=== PATIENT | male | born 1975 | race Caucasian/White ===

== ENCOUNTER → 2019-04-07 | Outpatient (CLI) | payer OTHER, SELFPAY ==
[2018-11-12 15:18] VITALS: BMI 37.5
[2019-04-07 21:53] LABS: Absolute Lymphocyte Count 2.58 X10^3/uL (0.83-4.51); Absolute Neutrophil Count 4.8 X10^3/uL (2.0-7.7); Basophil# 0.05 X10^3/uL; Basophil% 0.6 % (0-1); Eosinophil# 0.27 X10^3/uL; Eosinophils% 3.3 % (0-5); Hematocrit 46.6 % (40-54); Hemoglobin 15.5 g/dL (13.0-16.5); Lymphocyte # 2.58 X10^3/ul (4.0); Lymphocyte % 31.6 % (19-41); Mean Corp Hgb Conc 33.3 g/dL (32-36); Mean Corpuscular Hgb 28.1 pg (27.0-32.0); Mean Corpuscular Volume 84.4 fL (80-94); Mean Platelet Vol. 9.1 fl (6.2-12.0); Monocyte# 0.49 X10^3/uL; NRBC Flagged by Analyzer 0 % (0-5); Neutrophil # 4.75 X10^3/uL (2.7-7.7); Neutrophil % 58.3 % (47-70); Platelet Count 258 K/mm3 (150-450); RBC Distribution Width CV 12.7 % (11.6-14.6); RBC Distribution Width SD 39.2 fl (35.1-43.9); Red Blood Count 5.52 M/mm3 (4.6-6.2); White Blood Count 8.2 K/mm3 (4.4-11.0)
[2019-04-07 22:10] LABS: AST(SGOT) 26 U/L (15-37); Alanine Aminotransfer ALT/SGPT 61 U/L (16-61); Albumin, Serum 4.2 g/dL (3.2-5.0); Alkaline Phosphatase 72 U/L (45-117); Amylase 68 U/L (25-115); Anion Gap 7 (5-15); BUN 20 mg/dL (7-18); BUN/Creat Ratio 20.5 RATIO (10-20); Calcium,Total 9.4 mg/dL (8.5-10.1); Chloride 106 mmol/L (98-107); Cholesterol 273 mg/dL (200); Creatinine, Serum 0.97 mg/dL (0.70-1.30); EST Glomerular Filtration Rate 90 mL/min (>60); Est Glom Filt Rate - Afr Amer 109 mL/min (>60); Globulin 4.2 g/dL (2.2-4.2); Glucose 86 mg/dL (74-106); High Density Lipoprotein 61 mg/dL; Lipase 293 U/L (73-393); Protein, Total 8.4 g/dL (6.4-8.2); Sodium Level 139 mmol/L (136-145); Thyroid Stim Hormone (TSH) 1.57 uIU/mL (0.358-3.74); Triglycerides 194 mg/dL; Very Low Density Lipoprotein 39 mg/dL (5-40)
[2019-04-09 16:07] LABS: Endomysial Antibody IgA Negative (Negative)
[2019-04-13 12:36] LABS: Immunoglobulin A 270 mg/dL (90-386); t-Transglutaminase IgA <2 U/mL (0-3)
== END | disposition home or self-care (01) ==
LOC: OLS.AHF 21:40 → LABSPEC 04-08 09:42
PROVIDERS: Visit Provider Nurse Practitioner
DX: R10.30 Lower abdominal pain, unspecified (principal); R19.7 Diarrhea, unspecified; K59.00 Constipation, unspecified
CPT/HCPCS: 80053; 80061; 82150; 82784; 83516; 83690; 84443; 85025; 86255

== ENCOUNTER → 2019-05-02 20:01 | Outpatient (CLI) | payer OTHER, SELFPAY ==
[2019-04-30 13:45] VITALS: BMI 38.9
== END ==
LOC: OLS.AHF 20:01 → LABSPEC 05-04 12:49
PROVIDERS: Visit Provider Nurse Practitioner
DX: R30.0 Dysuria (principal)
CPT/HCPCS: 87086

== ENCOUNTER 2019-08-03 06:46 | Day surgery (SDC) | payer OTHER, SELFPAY ==
[2019-04-30 13:45] VITALS: BMI 38.9
[2019-07-28 17:06] LABS: Hematocrit 46.5 % (40-54); Hemoglobin 15.4 g/dL (13.0-16.5); Mean Corp Hgb Conc 33.1 g/dL (32-36); Mean Corpuscular Hgb 27.5 pg (27.0-32.0); Mean Corpuscular Volume 82.9 fL (80-94); Platelet Count 237 K/mm3 (150-450); RBC Distribution Width CV 13.1 % (11.6-14.6); Red Blood Count 5.61 M/mm3 (4.6-6.2); White Blood Count 7.3 K/mm3 (4.4-11.0)
[2019-07-28 17:41] LABS: Anion Gap 8 (5-15); BUN 16 mg/dL (7-18); BUN/Creat Ratio 14.8 RATIO (10-20); Calcium,Total 10.5 mg/dL (8.5-10.1); Chloride 106 mmol/L (98-107); Creatinine, Serum 1.08 mg/dL (0.70-1.30); EST Glomerular Filtration Rate 80 mL/min (>60); Est Glom Filt Rate - Afr Amer 96 mL/min (>60); Glucose 88 mg/dL (74-106); Potassium 3.9 mmol/L (3.5-5.1); Sodium Level 140 mmol/L (136-145)
[2019-08-03] VITALS (7 sets, daily range): BP systolic 154–177; BP diastolic 88–100; PULSE 56–81; RESP 14–16; TEMP 36.6–37.1; O2SAT 94–97; BMI 38.5
[2019-08-03] MEDS: Lactated Ringers 1,000 ML 100 ML IV (07:28)
--- NOTE | 2019-08-03 08:08 | DCINST_ITS ---
You will use the following diet at home:: No restrictions Your food should be the consistency of: Regular Discharge Activity: Return to Normal Activity, - - No nose blowing Additional Activity Instructions:: Start saline 3 sprays each nostril three times per day on 08/04/19 Allergies/Adverse Reactions: Allergies No Known Allergies Allergy (Verified 07/27/19 13:16) Medications to take at Discharge albuterol sulfate 90 mcg/actuation aerosol inhaler 2 puff INHALATION Q4H PRN #8 g 11/12/18 Acetaminophen [Tylenol Extra Strength] 500 - 1,000 mg PO Q6H PRN PRN 07/27/19 Buspirone HCl 10 mg PO TID 07/27/19 Cetirizine HCl [Zyrtec] 10 mg PO DAILY 07/27/19 Omeprazole 20 mg PO DAILY 07/27/19 Primary Care Physician: Linette Dale NP-C [Primary Care Provider] - Test Results: Test results from this visit will be discussed in further detail at your follow- up appointment, if applicable.
--- NOTE | 2019-08-03 08:10 | SEP_PTH ---
PATIENT: JHON VICTOR [place] [facility] [place][id number] AGE/SX: 43/M ROOM: RE08/03/[address]: Dr. Jb German MD : [id number] BED: DIS: 08/03/2019 SPEC #: [id number] RECD: 08/03/19 09:55 STATUS: ALEXANDER DAYANA #: [id number] SG: 08/03/19 08:[address]: Jb German DEPT: SURGICAL PATHOLOGY RECD BY: Nixon Nicole ENTERED: 08/03/19 13:17 SP TYPE: SEPTUM OTHR DR: Linette Dale, YARN CARRIER-C Tissues: Nasal septum, NOS Procedures: Decalcification bone/plaque Surgery Specimen Level III HEADER OPERATION: Septoplasty, submucous resection inferior turbinates PRE-OP DIAGNOSIS: Nasal congestion; hypertrophy of nasal turbinates; deviated nasal septum TISSUE SUBMITTED: Septum MICROSCOPIC DIAGNOSIS Nasal septum: Fragments of bone and cartilage, clinically deviated nasal septum. AM:maya 08/07/19 MICROSCOPIC DESCRIPTION Slides are reviewed. GROSS DESCRIPTION Received in fixative is one container labeled with the patient's name and designated nasal septum. The specimen consists of multiple irregular fragments of light louis bone and cartilage that in aggregate measure 6 x 3 x 0.2 cm. The specimen is totally submitted in two cassettes after decalcification. / AM:maya 08/03/19 TC:5 CPT: 69858, 73056
[2019-08-03] MEDS: Oxymetazoline 0.05% 1 SPRAY SPRAY.BTL 15 SPRAY (08:23)
[2019-08-03] MEDS: Mupirocin Ointment 22gm Tube 1 APPLIC (08:43)
--- NOTE | 2019-08-03 09:20 | OP.PCM_ITS ---
Report of Operation Date of Procedure: 08/03/19 Pre-Operative Diagnosis: nasal airway obstruction. deviated septum. Inferior turbinate hypertrophy bilaterally Post-Operative Diagnosis: same Surgery/Procedure Performed:: Septoplasty. Submucous resection inferior turbina christine. Type of Anesthesia:: General Anesthesiologist: Carlos Dillon Specimen's removed: septum Estimated Blood Loss (mL): minimal Description of Procedure: The patient was taken to the operating room on 08/03/2019. He was placed in supine position on the operating table. He was given sufficient general endotracheal anesthesia. The table was elevated 30 degrees. The nose was draped sterilely. 1% lidocaine with epinephrine was injected into the septum nasal floor anterior aspect of the inferior turbinates bilaterally. Nasal hair was trimmed with the scissors and removed. A right hemitransfixion incision was made with a 15 blade. The mucoperichondrial was elevated off of the left-hand side of the septum with a Parnell elevator. An anterior and posterior tunnel were created in this fashion. The bony cartilaginous junction was with a Parnell elevator. A posterior tunnel was created on the right side developed by elevating the mucoperichondrium with a Parnell. The deviated portions of bony septum were removed using open Osmin-Reza forceps. Next I established a plane on the right-hand side of the quadrangular cartilage as it was completely deviated into the right nasal cavity. I left a superior and anterior cartilage strip of 1.5 cm however the rest the quadrangular cartilage was excised with a D knife. This was removed and scored and eventually reinserted back into the septum. The maxillary crest was removed with a hammer and chisel. The remaining quadrangular cartilage was scored with a 15 blade. There were adhesions between the septum and right inferior turbinate that were lysed with a 15 blade. Afrin was used for hemostasis as well as Rani powder. Next, an incision was placed anterior aspect of the right inferior turbinate at the mucocutaneous junction. A submucous plane established with a caudal elevator. Submucous resection was carried out using a microdebrider. Afrin pledgets were used for hemostasis. The incision was then closed with 4-0 chromic. Then, an incision was placed at the anterior aspect of the left inferior turbinate at the mucocutaneous junction. A submucous plane established using a caudal elevator. Submucous resection was carried out using a microdebrider. The incision was then closed with 4-0 chromic. Afrin and Rani were used for hemostasis. Next the quadrangular cartilage was reinserted. The hemitransfixion incision was closed with 4-0 chromic. Michele nasal splints were applied to each side of the septum and sewn through and through with 3-0 silk. The patient was then awoken and brought to the recovery room in stable condition. Blood loss minimal, replacement none. Sponge, needle count, sponge count, were correct at the end of this procedure.
[2019-08-03] MEDS: HYDROcodone Bitartrate/Apap 5/325 Tablet PO (10:47)
== END 2019-08-03 11:21 | disposition home or self-care (01) ==
LOC: SDC 06:48 → AC 06:50
PROVIDERS: Family Provider Nurse Practitioner; PCP Nurse Practitioner; Referring Provider Otolaryngology; Visit Provider Otolaryngology
PROC: (CPT 30520; principal; 2019-08-03 07:55)
DX: J34.3 Hypertrophy of nasal turbinates (principal); J34.2 Deviated nasal septum; R09.81 Nasal congestion; I10 Essential (primary) hypertension; K21.9 Gastro-esophageal reflux disease without esophagitis; F41.9 Anxiety disorder, unspecified; J45.909 Unspecified asthma, uncomplicated; Z79.51 Long term (current) use of inhaled steroids; Z87.891 Personal history of nicotine dependence; Z79.899 Other long term (current) drug therapy
CPT/HCPCS: 30140; 30520; 36415; 80048; 85027; 88304; 88311; J7120; J2405

== ENCOUNTER → 2020-05-12 | Outpatient (CLI) | payer OTHER, SELFPAY ==
[2019-11-10 18:52] VITALS: BMI 38.9
== END | disposition home or self-care (01) ==
LOC: MTDU 17:24
PROVIDERS: PCP Nurse Practitioner; Referring Provider Nurse Practitioner; Visit Provider Nurse Practitioner
CPT/HCPCS: 87635; C9803; U0003

== ENCOUNTER → 2020-07-26 | Outpatient (CLI) | payer OTHER, SELFPAY ==
[2020-07-26 17:14] VITALS: BMI 39.9
[2020-07-26 22:38] LABS: Absolute Lymphocyte Count 2.42 X10^3/uL (0.83-4.51); Absolute Neutrophil Count 4.6 X10^3/uL (2.0-7.7); Basophil# 0.06 X10^3/uL; Basophil% 0.8 % (0-1); Eosinophil# 0.25 X10^3/uL; Eosinophils% 3.2 % (0-5); Hematocrit 47.3 % (40-54); Hemoglobin 15.3 g/dL (13.0-16.5); Lymphocyte # 2.42 X10^3/ul (4.0); Lymphocyte % 30.8 % (19-41); Mean Corp Hgb Conc 32.3 g/dL (32-36); Mean Corpuscular Hgb 28.2 pg (27.0-32.0); Mean Corpuscular Volume 87.1 fL (80-94); Mean Platelet Vol. 9.3 fl (6.2-12.0); Monocyte% 6.4 % (0-10); NRBC Flagged by Analyzer 0 % (0-5); Neutrophil # 4.61 X10^3/uL (2.7-7.7); Neutrophil % 58.5 % (47-70); Platelet Count 255 K/mm3 (150-450); RBC Distribution Width CV 12.9 % (11.6-14.6); Red Blood Count 5.43 M/mm3 (4.6-6.2); White Blood Count 7.9 K/mm3 (4.4-11.0)
[2020-07-26 23:09] LABS: ALB/GLOB Ratio 1.1 RATIO (0.9-2.4); AST(SGOT) 88 U/L (15-37); Alanine Aminotransfer ALT/SGPT 160 U/L (16-61); Albumin, Serum 4.1 g/dL (3.2-5.0); Alkaline Phosphatase 73 U/L (45-117); Anion Gap 6 (5-15); BUN 22 mg/dL (7-18); BUN/Creat Ratio 16.7 RATIO (10-20); Calcium,Total 9.1 mg/dL (8.5-10.1); Chloride 107 mmol/L (98-107); Cholesterol 306 mg/dL (200); Creatinine, Serum 1.32 mg/dL (0.70-1.30); EST Glomerular Filtration Rate 63 mL/min (>60); Est Glom Filt Rate - Afr Amer 76 mL/min (>60); Globulin 3.6 g/dL (2.2-4.2); Glucose 87 mg/dL (74-106); High Density Lipoprotein 58 mg/dL; Protein, Total 7.7 g/dL (6.4-8.2); Sodium Level 141 mmol/L (136-145); Triglycerides 256 mg/dL; Very Low Density Lipoprotein 51 mg/dL (5-40)
== END | disposition home or self-care (01) ==
PROVIDERS: PCP Nurse Practitioner; Referring Provider Nurse Practitioner; Visit Provider Nurse Practitioner
DX: I10 Essential (primary) hypertension (principal)
CPT/HCPCS: 80053; 80061; 85025

== ENCOUNTER → 2020-10-25 | Outpatient (CLI) | payer OTHER, SELFPAY ==
[2020-10-25 18:20] VITALS: BMI 38.7
[2020-10-25 22:18] LABS: Absolute Lymphocyte Count 1.84 X10^3/uL (0.83-4.51); Absolute Neutrophil Count 4.7 X10^3/uL (2.0-7.7); Basophil# 0.03 X10^3/uL; Basophil% 0.4 % (0-1); Eosinophil# 0.15 X10^3/uL; Eosinophils% 2.1 % (0-5); Hematocrit 43.8 % (40-54); Hemoglobin 14.5 g/dL (13.0-16.5); Lymphocyte # 1.84 X10^3/ul (4.0); Mean Corp Hgb Conc 33.1 g/dL (32-36); Mean Corpuscular Volume 87.6 fL (80-94); Mean Platelet Vol. 9.6 fl (6.2-12.0); Monocyte# 0.39 X10^3/uL; Monocyte% 5.5 % (0-10); NRBC Flagged by Analyzer 0 % (0-5); Neutrophil # 4.67 X10^3/uL (2.7-7.7); Neutrophil % 65.9 % (47-70); Platelet Count 269 K/mm3 (150-450); RBC Distribution Width CV 12.6 % (11.6-14.6); RBC Distribution Width SD 40.3 fl (35.1-43.9); White Blood Count 7.1 K/mm3 (4.4-11.0)
[2020-10-25 22:48] LABS: ALB/GLOB Ratio 1.1 RATIO (0.9-2.4); AST(SGOT) 154 U/L (15-37); Alanine Aminotransfer ALT/SGPT 253 U/L (16-61); Alkaline Phosphatase 69 U/L (45-117); Anion Gap 9 (5-15); BUN 22 mg/dL (7-18); BUN/Creat Ratio 20.4 RATIO (10-20); CPK Total, Creatine Kinase 2130 U/L (39-308); CRP, High Sensitivity Cardiac 1.53 mg/L; Calcium,Total 9.3 mg/dL (8.5-10.1); Chloride 107 mmol/L (98-107); Cholesterol 258 mg/dL (200); Creatinine, Serum 1.08 mg/dL (0.70-1.30); EST Glomerular Filtration Rate 79 mL/min (>60); Est Glom Filt Rate - Afr Amer 96 mL/min (>60); Globulin 3.5 g/dL (2.2-4.2); Glucose 110 mg/dL (74-106); High Density Lipoprotein 59 mg/dL; Potassium 3.6 mmol/L (3.5-5.1); Protein, Total 7.5 g/dL (6.4-8.2); Sodium Level 139 mmol/L (136-145); Triglycerides 288 mg/dL; Very Low Density Lipoprotein 58 mg/dL (5-40)
== END | disposition home or self-care (01) ==
PROVIDERS: Visit Provider Nurse Practitioner
DX: I10 Essential (primary) hypertension (principal); R00.2 Palpitations
CPT/HCPCS: 80053; 80061; 82550; 84484; 85025; 86141

== ENCOUNTER → 2021-03-03 12:40 | Outpatient (CLI) | payer OTHER, SELFPAY ==
[2020-12-16 18:30] VITALS: BMI 38.4
== END ==
PROVIDERS: PCP Nurse Practitioner; Visit Provider Nurse Practitioner
DX: Z20.822 Contact with and (suspected) exposure to COVID-19 (principal)
CPT/HCPCS: 87426; C9803

== ENCOUNTER 2021-08-09 09:18 | Outpatient (CLI) | payer OTHER, SELFPAY | END 2021-08-09 23:59 | disposition short-term general hospital (02) | LOC: PSN 09:19 | PROVIDERS: PCP Nurse Practitioner; Referring Provider Nurse Practitioner; Visit Provider Nurse Practitioner | DX: U07.1 COVID-19 (principal) | CPT/HCPCS: 87635; C9803; U0003; U0005 ==

== ENCOUNTER 2021-08-28 22:14 | Outpatient (CLI) | payer OTHER, SELFPAY ==
[2021-08-28 22:28] LABS: Absolute Lymphocyte Count 1.95 X10^3/uL (0.83-4.51); Basophil# 0.05 X10^3/uL; Basophil% 0.7 % (0-1); Eosinophil# 0.17 X10^3/uL; Eosinophils% 2.2 % (0-5); Hematocrit 47.9 % (40-54); Hemoglobin 16.1 g/dL (13.0-16.5); Lymphocyte # 1.95 X10^3/ul (0.83-4.51); Lymphocyte % 25.8 % (19-41); Mean Corp Hgb Conc 33.6 g/dL (32-36); Mean Corpuscular Hgb 28.5 pg (27.0-32.0); Mean Corpuscular Volume 84.9 fL (80-94); Mean Platelet Vol. 9.3 fl (6.2-12.0); Monocyte# 0.43 X10^3/uL; Monocyte% 5.7 % (0-10); NRBC Flagged by Analyzer 0 % (0-5); Neutrophil # 4.95 X10^3/uL (2.7-7.7); Neutrophil % 65.3 % (47-70); Platelet Count 264 K/mm3 (150-450); RBC Distribution Width CV 12.9 % (11.6-14.6); RBC Distribution Width SD 39.6 fl (35.1-43.9); Red Blood Count 5.64 M/mm3 (4.6-6.2); White Blood Count 7.6 K/mm3 (4.4-11.0)
[2021-08-28 22:49] LABS: ALB/GLOB Ratio 1.1 RATIO (0.9-2.4); AST(SGOT) 235 U/L (15-37); Alanine Aminotransfer ALT/SGPT 383 U/L (16-61); Albumin, Serum 4.4 g/dL (3.2-5.0); Alkaline Phosphatase 88 U/L (45-117); Anion Gap 7 (5-15); BUN 23 mg/dL (7-18); CPK Total, Creatine Kinase 204 U/L (39-308); Chloride 103 mmol/L (98-107); Creatinine, Serum 1.35 mg/dL (0.70-1.30); EST Glomerular Filtration Rate 61 mL/min (>60); Est Glom Filt Rate - Afr Amer 74 mL/min (>60); Globulin 4.1 g/dL (2.2-4.2); Glucose 96 mg/dL (74-106); Protein, Total 8.5 g/dL (6.4-8.2); Sodium Level 136 mmol/L (136-145)
== END 2021-08-28 23:59 | disposition short-term general hospital (02) ==
PROVIDERS: PCP Nurse Practitioner; Visit Provider Nurse Practitioner
DX: R07.89 Other chest pain (principal); K21.00 Gastro-esophageal reflux disease with esophagitis, without bleeding
CPT/HCPCS: 80053; 82550; 85025

== ENCOUNTER → 2021-12-21 | Outpatient (CLI) | payer OTHER, SELFPAY ==
[2021-12-22 00:01] LABS: Absolute Lymphocyte Count 2.45 X10^3/uL (0.83-4.51); Absolute Neutrophil Count 4.8 X10^3/uL (2.0-7.7); Basophil# 0.04 X10^3/uL; Basophil% 0.5 % (0-1); Eosinophil# 0.17 X10^3/uL; Eosinophils% 2.2 % (0-5); Hemoglobin 15.1 g/dL (13.0-16.5); Lymphocyte # 2.45 X10^3/ul (0.83-4.51); Mean Corp Hgb Conc 33.6 g/dL (32-36); Mean Corpuscular Hgb 28.5 pg (27.0-32.0); Mean Corpuscular Volume 84.9 fL (80-94); Mean Platelet Vol. 9.4 fl (6.2-12.0); Monocyte# 0.46 X10^3/uL; Monocyte% 5.8 % (0-10); NRBC Flagged by Analyzer 0 % (0-5); Neutrophil # 4.76 X10^3/uL (2.7-7.7); Neutrophil % 60.2 % (47-70); Platelet Count 247 K/mm3 (150-450); RBC Distribution Width CV 12.2 % (11.6-14.6); RBC Distribution Width SD 37.8 fl (35.1-43.9); White Blood Count 7.9 K/mm3 (4.4-11.0)
[2021-12-22 00:26] LABS: ALB/GLOB Ratio 1.2 RATIO (0.9-2.4); AST(SGOT) 52 U/L (15-37); Alanine Aminotransfer ALT/SGPT 125 U/L (16-61); Albumin, Serum 4.3 g/dL (3.2-5.0); Alkaline Phosphatase 69 U/L (45-117); Anion Gap 8 (5-15); BUN 25 mg/dL (7-18); BUN/Creat Ratio 23.6 RATIO (10-20); Calcium,Total 9.6 mg/dL (8.5-10.1); Chloride 105 mmol/L (98-107); Cholesterol 258 mg/dL (200); Creatinine, Serum 1.06 mg/dL (0.70-1.30); EST Glomerular Filtration Rate 81 mL/min (>60); Est Glom Filt Rate - Afr Amer 97 mL/min (>60); Globulin 3.6 g/dL (2.2-4.2); Glucose 91 mg/dL (74-106); High Density Lipoprotein 48 mg/dL; Potassium 4.1 mmol/L (3.5-5.1); Protein, Total 7.9 g/dL (6.4-8.2); Sodium Level 137 mmol/L (136-145); Triglycerides 200 mg/dL; Very Low Density Lipoprotein 40 mg/dL (5-40)
== END | disposition home or self-care (01) ==
PROVIDERS: PCP Nurse Practitioner; Referring Provider Nurse Practitioner; Visit Provider Nurse Practitioner
DX: I10 Essential (primary) hypertension (principal)
CPT/HCPCS: 80053; 80061; 85025

== ENCOUNTER → 2023-06-17 | Outpatient (CLI) | payer OTHER, SELFPAY ==
[2023-06-17 22:01] LABS: Absolute Lymphocyte Count 2.47 X10^3/uL (0.83-4.51); Basophil# 0.05 X10^3/uL; Basophil% 0.6 % (0-1); Eosinophil# 0.22 X10^3/uL; Eosinophils% 2.7 % (0-5); Hematocrit 47.2 % (40-54); Hemoglobin 15.7 g/dL (13.0-16.5); Lymphocyte # 2.47 X10^3/ul (0.83-4.51); Lymphocyte % 30.3 % (19-41); Mean Corp Hgb Conc 33.3 g/dL (32-36); Mean Corpuscular Hgb 28.6 pg (27.0-32.0); Monocyte# 0.44 X10^3/uL; Monocyte% 5.4 % (0-10); NRBC Flagged by Analyzer 0 % (0-5); Neutrophil # 4.95 X10^3/uL (2.7-7.7); Neutrophil % 60.9 % (47-70); Platelet Count 278 K/mm3 (150-450); RBC Distribution Width CV 12.8 % (11.6-14.6); RBC Distribution Width SD 40.2 fl (35.1-43.9); Red Blood Count 5.49 M/mm3 (4.6-6.2); White Blood Count 8.1 K/mm3 (4.4-11.0)
[2023-06-17 22:19] LABS: ALB/GLOB Ratio 1.1 RATIO (0.9-2.4); AST(SGOT) 30 U/L (15-37); Alanine Aminotransfer ALT/SGPT 55 U/L (16-61); Albumin, Serum 4.2 g/dL (3.2-5.0); Alkaline Phosphatase 69 U/L (45-117); Anion Gap 8 (5-15); BUN 19 mg/dL (7-18); BUN/Creat Ratio 16.5 RATIO (10-20); Calcium,Total 9.1 mg/dL (8.5-10.1); Chloride 105 mmol/L (98-107); Cholesterol 286 mg/dL (200); Creatinine, Serum 1.15 mg/dL (0.70-1.30); EST Glomerular Filtration Rate 73 mL/min (>60); Est Glom Filt Rate - Afr Amer 88 mL/min (>60); Globulin 3.8 g/dL (2.2-4.2); Glucose 101 mg/dL (74-106); High Density Lipoprotein 54 mg/dL; Potassium 3.9 mmol/L (3.5-5.1); Sodium Level 138 mmol/L (136-145); Thyroid Stim Hormone (TSH) 1.06 uIU/mL (0.358-3.74); Triglycerides 318 mg/dL; Very Low Density Lipoprotein 64 mg/dL (5-40)
== END | disposition home or self-care (01) ==
PROVIDERS: PCP Nurse Practitioner; Visit Provider Nurse Practitioner
DX: I10 Essential (primary) hypertension (principal); E78.5 Hyperlipidemia, unspecified; R74.8 Abnormal levels of other serum enzymes; E66.9 Obesity, unspecified
CPT/HCPCS: 80053; 80061; 84443; 85025

== ENCOUNTER → 2023-10-10 | Outpatient (CLI) | payer OTHER, SELFPAY ==
[2023-10-10 21:37] LABS: Cholesterol 212 mg/dL (200); High Density Lipoprotein 57 mg/dL; Triglycerides 145 mg/dL; Very Low Density Lipoprotein 29 mg/dL (5-40)
== END | disposition home or self-care (01) ==
LOC: LABSPEC 21:11
PROVIDERS: PCP Nurse Practitioner; Visit Provider Nurse Practitioner
DX: E78.1 Pure hyperglyceridemia (principal); E78.5 Hyperlipidemia, unspecified
CPT/HCPCS: 80061

== ENCOUNTER → 2025-06-09 | Outpatient (CLI) | payer OTHER, SELFPAY ==
[2025-06-09 17:53] LABS: Hematocrit 43.2 % (40-54); Hemoglobin 14.1 g/dL (13.0-16.5); Immature Granulocytes Count 0.040 X10^3/uL (0.0-0.0); Mean Corp Hgb Conc 32.6 g/dL (32-36); Mean Corpuscular Volume 89.1 fL (80-94); Mean Platelet Vol. 9.8 fl (6.2-12.0); NRBC Flagged by Analyzer 0 % (0-5); Platelet Count 465 K/mm3 (150-450); RBC Distribution Width CV 14.2 % (11.6-14.6); RBC Distribution Width SD 45.6 fl (35.1-43.9); Red Blood Count 4.85 M/mm3 (4.6-6.2); White Blood Count 10.8 K/mm3 (4.4-11.0)
[2025-06-09 18:06] LABS: AST(SGOT) 18 U/L (<=37); Alanine Aminotransfer ALT/SGPT 12 U/L (<=46); Albumin, Serum 3.7 g/dL (3.5-5.0); Alkaline Phosphatase 110 U/L (40-129); Anion Gap 9 (5-15); BUN 19 mg/dL (4-19); BUN/Creat Ratio 25.3 RATIO (10-20); Calcium,Total 9.4 mg/dL (7.6-11.0); Carbon Dioxide 25.4 mmol/L (21.0-32.0); Chloride 101 mmol/L (98-108); Ferritin 83 ng/mL (37-417); Globulin 2.8 g/dL (2.2-4.2); Glucose 86 mg/dL (70-99); Iron 25 ug/dL (65-175); Iron Binding Capacity,Unsat 205 ug/dL (228-428); Magnesium 2.0 mg/dL (1.5-2.2); Potassium 4.5 mmol/L (3.3-5.1); Vitamin B12 1246 pg/mL (180-914); Vitamin D,25 Hydroxy 41.6 ng/mL (30-100)
[2025-06-09 18:19] LABS: FOLATES,SERUM (FOLIC ACID) 3.91 ng/mL (4.60-34.80)
[2025-06-09 18:27] LABS: Iron Binding Capacity,Total 230 ug/dL (250-450)
== END | disposition home or self-care (01) ==
LOC: VSLAB 15:32
PROVIDERS: PCP Nurse Practitioner; Referring Provider Nurse Practitioner Family; Visit Provider Nurse Practitioner Family
DX: M62.838 Other muscle spasm (principal); D50.9 Iron deficiency anemia, unspecified; E56.9 Vitamin deficiency, unspecified; R73.03 Prediabetes
CPT/HCPCS: 36415; 80053; 82306; 82607; 82728; 82746; 83036; 83540; 83550; 83735; 85025

== ENCOUNTER → 2025-07-06 | Outpatient (CLI) | payer OTHER, SELFPAY ==
--- OUTSIDE RECORDS SUMMARY | 2025-07-06 21:50 | XMS RPT_ITS | CCD ---
Author Organization [facility] Care Team Providers Care Online User Experience Strategist Name Role Phone Gerardo, Shawna Unavailable Unavailable Gerardo, Shawna Unavailable Unavailable Gerardo, Shawna Unavailable Unavailable QUINTIN HARP Unavailable Unavailable Gerardo, Shawna Unavailable Unavailable Gerardo, Shawna Unavailable Unavailable Jono Weathers Primary Care Provider Jasiel WET WHEELER, Jono Attending Unavailable Jasiel WET WHEELER, Jono Primary Care Unavailable Jasiel WET WHEELER, Jono Attending Unavailable Jasiel WET WHEELER, Jono Primary Care Unavailable Jono Weathers Primary Care Provider Jono Weathers Primary Care Provider JAN PRASAD Attending Unavailable WEATHERS, DORA Primary Care Unavailable JASIEL JONO Primary Care Unavailable BAKARI JOHNSON Attending Unavailable Allergies Allergy Classification Reported Allergen(s) Allergy Type Date of Onset Reaction(s) Facility (13 sources) almond allergenic extract Drug Allergy 10-06-2022 [facility] (13 sources) avocado oil Drug Allergy 10-06-2022 [facility] (13 sources) Bananas Propensity to adverse reactions 10-06-2022 [facility] Medications Current Medications Medication Drug Class(es) Dates Sig (Normalized) Sig (Original) [id number] 200 actuat albuterol 0.09 mg/actuat metered dose inhaler (20 sources) beta2-Adrenergic Agonist Start: 09-04-2022 take 2 puff(s) by mouth every six hours as needed for wheezing albuterol 108 (90 Base) MCG/ACT inhaler INHALE 2 PUFFS BY MOUTH EVERY 6 HOURS NEEDED FOR SHORTNESS OF BREATH FOR WHEEZING 09/04/2022 Active Start: 03-09-2021 End: 06-17-2023 take 1 puff(s) by inhalation every six hours Albuterol Sulfate (Proair Hfa) 90 mcg/actuation HFA aerosol inhaler Discontinued 2 PUFF INHALATION EVERY 6 HOURS April 26, 2022 7:39pm June 17, 2023 8:31pm Start: 11-10-2019 End: 03-09-2021 take 1 puff(s) by inhalation every four hours Albuterol Sulfate (Ventolin Hfa) 90 mcg/actuation HFA aerosol inhaler Discontinued 2 PUFF INHALATION Q4H December 16, 2020 6:32pm March 09, 2021 9:18pm Start: 11-12-2018 End: 11-10-2019 take 1 puff(s) by inhalation every four hours Albuterol Sulfate (Ventolin Hfa) 90 mcg/actuation HFA aerosol inhaler Discontinued 2 PUFF INHALATION Q4H 8 November 12, 2018 3:46pm November 10, 2019 6:36pm Start: 05-21-2018 End: 11-12-2018 take 1 puff(s) by inhalation every six hours Albuterol Sulfate (Ventolin Hfa) 90 mcg/actuation HFA aerosol inhaler Discontinued 2 PUFF INHALATION EVERY 6 HOURS May 21, 2018 6:56pm November 12, 2018 3:47pm Start: 05-21-2018 End: 11-12-2018 take 1 puff(s) by inhalation every six hours Albuterol Sulfate (Ventolin Hfa) 90 mcg/actuation HFA aerosol inhaler Discontinued 2 PUFF INHALATION EVERY 6 HOURS May 21, 2018 12:00am November 12, 2018 3:47pm ALPRAZolam 0.5 mg oral tablet (4 sources) Benzodiazepine Start: 10-23-2022 End: 06-17-2023 take 0.5 mg by mouth once daily Alprazolam Active 0.5 MG PO DAILY June 17, 2023 8:30pm baclofen 10 mg oral tablet (16 sources) gamma-Aminobutyric Acid-ergic Agonist Start: 08-28-2021 End: 01-03-2023 baclofen (Lioresal) 10 MG tablet Take 10 mg by mouth See administration instructions. prn 08/28/2022 Active busPIRone hydrochloride 10 mg oral tablet (20 sources) Start: 07-27-2019 End: 01-24-2023 take 1 tablet by mouth three times daily busPIRone (Buspar) 10 MG tablet Take 10 mg by mouth 3 times daily. 07/21/2022 Active Start: 05-21-2018 End: 07-27-2019 take 15 mg by mouth twice daily Buspirone Discontinued 15 MG PO TWICE A DAY 270 90 November 12, 2018 3:46pm July 27, 2019 2:18pm ezetimibe 10 mg oral tablet (1 source) Dietary Cholesterol Absorption Inhibitor Start: 07-16-2023 take 10 mg by mouth once daily Ezetimibe Active 10 MG PO DAILY July 16, 2023 1:00am hydrOXYzine hydrochloride 10 mg oral tablet (20 sources) Antihistamine Start: 08-09-2022 take 1 tablet by mouth five times daily as needed for anxiety hydrOXYzine HCl (Atarax) 10 MG tablet TAKE 1 TABLET BY MOUTH FIVE TIMES DAILY NEEDED FOR ANXIETY 08/09/2022 Active Start: 12-16-2020 End: 01-04-2023 Hydroxyzine Hcl Discontinued 10 MG PO .5 x d 450 90 October 15, 2022 7:47pm January 04, 2023 7:11pm Start: 10-25-2020 End: 12-16-2020 take 10 mg by mouth three to four times daily Hydroxyzine Hcl Discontinued 10 MG PO 3 to 4 times per day 60 October 25, 2020 12:00am December 16, 2020 6:35pm ibuprofen 800 mg oral tablet (20 sources) Nonsteroidal Anti-inflammatory Drug Start: 08-28-2022 ibuprofen 800 MG tablet Take 800 mg by mouth See administration instructions. PRN 08/28/2022 Active Start: 12-08-2019 End: 01-24-2023 take 800 mg by mouth three times daily Ibuprofen Discontinued 800 MG PO THREE TIMES A DAY 60 February 01, 2021 7:58pm June 13, 2021 8:39pm lisinopril 20 mg oral tablet (20 sources) Angiotensin Converting Enzyme Inhibitor Start: 07-26-2020 End: 04-25-2023 take 1 tablet by mouth once daily lisinopril 20 MG tablet Take 20 mg by mouth daily. 06/15/2022 Active Start: 11-10-2019 End: 07-26-2020 take 10 mg by mouth once daily Lisinopril Discontinued 10 MG PO DAILY November 10, 2019 12:00am July 26, 2020 6:24pm pantoprazole 40 mg delayed release oral tablet (18 sources) Proton Pump Inhibitor Start: 08-08-2021 End: 01-24-2023 take 1 tablet by mouth once daily pantoprazole (ProtoNix) 40 MG EC tablet Take 40 mg by mouth daily. 08/28/2022 Active traZODone hydrochloride 50 mg oral tablet (1 source) Serotonin Reuptake Inhibitor Start: 10-10-2023 take 50 mg by mouth once daily Trazodone Active 50 MG PO DAILY October 10, 2023 12:00am Completed/Discontinued Medications Medication Drug Class(es) Dates Sig (Normalized) Sig (Original) acetaminophen 500 mg oral tablet (5 sources) Start: 04-23-2025 End: 04-23-2025 1,000 mg, Oral, Once, On Sat04/23/25 at 2120, For 1 dose, Maximum dose of acetaminophen is 4000 mg from all sources in 24 hours. Start: 07-27-2019 End: 07-26-2020 take 500-1000 mg by mouth every six hours as needed Acetaminophen Discontinued 500 - 1000 MG PO EVERY 6 HOURS NEEDED July 27, 2019 1:00am July 26, 2020 6:17pm amoxicillin 875 mg oral tablet (3 sources) Penicillin-class Antibacterial Start: 06-13-2021 End: 08-28-2021 take 875 mg by mouth twice daily Amoxicillin Discontinued 875 MG PO TWICE A DAY June 13, 2021 1:00am August 28, 2021 7:24pm amoxicillin 875 mg / clavulanate 125 mg oral tablet (5 sources) Penicillin-class Antibacterial Start: 04-12-2023 End: 06-17-2023 take 1 tablet by mouth twice daily Amoxicillin-Pot Clavulanate Discontinued 1 TABLET PO TWICE A DAY April 12, 2023 12:00am June 17, 2023 8:20pm Start: 09-21-2019 End: 11-10-2019 take 1 tablet by mouth twice daily Amoxicillin-Pot Clavulanate Discontinued 1 TABLET PO TWICE A DAY September 21, 2019 1:00am November 10, 2019 6:31pm atorvastatin 40 mg oral tablet (5 sources) HMG-CoA Reductase Inhibitor Start: 08-28-2022 End: 04-25-2023 take 100 mg by mouth once daily Atorvastatin Discontinued 20 MG PO DAILY August 28, 2022 5:09pm April 25, 2023 3:18pm take with CoQ10 100 mg a day Start: 07-27-2020 End: 08-28-2022 take 100 mg by mouth once daily Atorvastatin Discontinued 40 MG PO DAILY July 27, 2020 1:00am August 28, 2022 5:10pm take with CoQ10 100 mg a day calcium chloride 0.0014 meq/ml / potassium chloride 0.004 meq/ml / sodium chloride 0.103 meq/ml / sodium lactate 0.028 meq/ml injectable solution (2 sources) Start: 10-06-2022 End: 10-06-2022 lactated ringers bolus 500 mL cefuroxime 500 mg oral tablet (2 sources) Cephalosporin Antibacterial Start: 10-23-2022 End: 04-12-2023 take 500 mg by mouth twice daily Cefuroxime Axetil Discontinued 500 MG PO TWICE A DAY October 23, 2022 12:00am April 12, 2023 6:36pm cephalexin 500 mg oral capsule (3 sources) Cephalosporin Antibacterial Start: 09-01-2019 End: 09-21-2019 take 500 mg by mouth twice daily Cephalexin Discontinued 500 MG PO TWICE A DAY September 01, 2019 1:00am September 21, 2019 7:50pm cetirizine hydrochloride 10 mg oral capsule (3 sources) Histamine-1 Receptor Antagonist Start: 07-27-2019 End: 06-17-2023 take 10 mg by mouth once daily Cetirizine Discontinued 10 MG PO DAILY July 27, 2019 1:00am June 17, 2023 8:21pm clotrimazole 10 mg/ml topical cream (2 sources) Azole Antifungal Start: 08-28-2022 End: 06-17-2023 Clotrimazole Discontinued 1 APPLIC TOPICAL THREE TIMES A DAY August 28, 2022 1:00am June 17, 2023 8:20pm dexamethasone 6 mg oral tablet (3 sources) Corticosteroid Start: 08-08-2021 End: 08-28-2021 take 6 mg by mouth twice daily Dexamethasone Discontinued 6 MG PO TWICE A DAY August 08, 2021 1:00am August 28, 2021 7:24pm 5 ml dilTIAZem hydrochloride 5 mg/ml injection (4 sources) Calcium Channel Avinash Start: 10-06-2022 End: 10-06-2022 dilTIAZem (Cardizem) injection 40 mg Start: 10-06-2022 End: 10-06-2022 dilTIAZem (Cardizem) injecti on 30 mg DULoxetine 30 mg delayed release oral capsule (4 sources) Serotonin and Norepinephrine Reuptake Inhibitor Start: 10-23-2022 End: 04-25-2023 take 30 mg by mouth once daily Duloxetine Discontinued 30 MG PO DAILY October 23, 2022 4:04pm April 25, 2023 3:19pm EPINEPHrine 0.01 mg/ml / lidocaine hydrochloride 10 mg/ml injectable solution (2 sources) Antiarrhythmic, alpha-Adrenergic Agonist, beta-Adrenergic Agonist, Catecholamine, Amide Local Anesthetic Start: 04-23-2025 End: 04-23-2025 5 mL, Infiltration, Once, On Sat04/23/25 at 2120, For 1 dose 20 ml etomidate 2 mg/ml injection (2 sources) General Anesthetic Start: 10-06-2022 End: 10-06-2022 etomidate (Amidate) injection 20 mg fluconazole 100 mg oral tablet (2 sources) Azole Antifungal Start: 08-28-2022 End: 04-25-2023 take 100 mg by mouth once daily Fluconazole Discontinued 100 MG PO daily August 28, 2022 1:00am April 25, 2023 3:19pm 1 ml LORazepam 2 mg/ml injection (2 sources) Benzodiazepine Start: 10-06-2022 End: 10-06-2022 LORazepam (Ativan) injection 0.5 mg 2 ml metoclopramide 5 mg/ml prefilled syringe (2 sources) Dopamine-2 Receptor Antagonist Start: 10-06-2022 End: 10-06-2022 metoclopramide (Reglan) injection 10 mg omeprazole 20 mg delayed release oral tablet (3 sources) Proton Pump Inhibitor Start: 07-27-2019 End: 08-28-2021 take 20 mg by mouth once daily Omeprazole Discontinued 20 MG PO DAILY July 27, 2019 1:00am August 28, 2021 7:25pm On Hold: Order Changed 2 ml ondansetron 2 mg/ml injection (4 sources) Serotonin-3 Receptor Antagonist Start: 10-06-2022 End: 10-07-2022 ondansetron (Zofran) injection 4 mg 1 ml testosterone cypionate 200 mg/ml injection (3 sources) Androgen Start: 05-21-2018 End: 11-12-2018 Testosterone Cypionate (Depo-Testosterone) 200 mg/mL oil Discontinued 200 MG IM every 4 weeks May 21, 2018 12:00am November 12, 2018 3:34pm Problems Active Problems Problem Classification Problem Date Documented Da te Episodic/Chronic Anxiety disorders (20 sources) Anxiety disorder, unspecified; Translations: [Anxiety] Onset: 09-28-2016 05-11-2022 Chronic Asthma (12 sources) Asthma; Translations: [Unspecified asthma, uncomplicated] Onset: 10-08-2022 10-08-2022 Chronic Cardiac dysrhythmias (20 sources) Atrial fibrillation; Translations: [Unspecified atrial fibrillation] Onset: 10-08-2022 Resolved: 12-27-2022 Chronic Disorders of lipid metabolism (4 sources) Hyperlipidemia; Translations: [Hyperlipidemia, unspecified] Onset: 10-14-2023 06-18-2023 Chronic Esophageal disorders (14 sources) Gastro-esophageal reflux disease without esophagitis; Translations: [Gastroesophageal reflux disease] Onset: 03-20-2017 10-08-2022 Chronic Essential hypertension (20 sources) Hypertensive disorder; Translations: [Essential (primary) hypertension] Onset: 09-28-2016 05-11-2022 Chronic Inflammatory conditions of male genital organs (2 sources) Balanitis; Translations: [Balanitis] 08-28-2022 Chronic Open wounds of head; neck; and trunk (4 sources) Laceration of forehead; Translations: [Laceration without foreign body of other part of head, initial encounter] Onset: 04-23-2025 04-23-2025 Episodic Other ear and sense organ disorders (1 source) Otalgia; Translations: [Otalgia, unspecified ear] Episodic Other ear and sense organ disorders (2 sources) Pain of ear structure; Translations: [Otalgia, unspecified ear] 09-21-2019 Episodic Other gastrointestinal disorders (3 sources) Diarrhea; Translations: [Diarrhea, unspecified] 08-03-2019 Episodic Other injuries and conditions due to external causes (2 sources) Closed injury of head; Translations: [Unspecified injury of head, initial encounter] 04-23-2025 Episodic Other injuries and conditions due to external causes (2 sources) Unspecified injury of head, initial encounter; Translations: [Unspecified injury of head, initial encounter] Onset: 04-23-2025 Episodic Other nutritional; endocrine; and metabolic disorders (9 sources) Body mass index 40+ - severely obese; Translations: [Morbid (severe) obesity due to excess calories] Onset: 10-08-2022 10-08-2022 Chronic Other nutritional; endocrine; and metabolic disorders (2 sources) Obesity; Translations: [Obesity, unspecified] 04-26-2023 Chronic Other skin disorders (2 sources) Sebaceous cyst of skin; Translations: [Sebaceous cyst] 04-14-2023 Episodic Other skin disorders (2 sources) Sebaceous hyperplasia; Translations: [Other specified follicular disorders] 04-12-2023 Episodic Other upper respiratory disease (2 sources) Allergic rhinitis, unspecified; Translations: [Allergic rhinitis, unspecified] Onset: 03-20-2017 Chronic Other upper respiratory disease (15 sources) Allergic rhinitis; Translations: [Other allergic rhinitis] Onset: 04-07-2017 05-11-2022 Chronic Other upper respiratory infections (12 sources) Maxillary sinusitis; Translations: [Chronic maxillary sinusitis] Onset: 10-08-2022 10-08-2022 Chronic Other upper respiratory infections (3 sources) Pharyngitis; Translations: [Acute pharyngitis, unspecified] 06-13-2021 Episodic Past or Other Problems Problem Classification Problem Date Documented Da te Episodic/Chronic Abdominal pain (12 sources) Lower abdominal pain; Translations: [Lower abdominal pain, unspecified] Onset: 10-08-2022 10-08-2022 Episodic Cardiac dysrhythmias (15 sources) Palpitations; Translations: [Palpitations] Onset: 10-08-2022 10-08-2022 Episodic Epilepsy; convulsions (2 sources) Unspecified convulsions; Translations: [Unspecified convulsions] Onset: 03-20-2017 Episodic Genitourinary symptoms and ill-defined conditions (15 sources) Dysuria; Translations: [Dysuria] Onset: 10-08-2022 10-08-2022 Episodic Immunizations and screening for infectious disease (12 sources) Contact with or exposure to other viral diseases; Translations: [Exposure to confirmed case of COVID-19] Onset: 10-08-2022 10-08-2022 Episodic Nonspecific chest pain (15 sources) Chest wall pain; Translations: [Other chest pain] Onset: 10-08-2022 10-08-2022 Episodic Other circulatory disease (12 sources) Elevated blood-pressure reading without diagnosis of hypertension; Translations: [Elevated blood-pressure reading, without diagnosis of hypertension] Onset: 10-08-2022 Resolved: 12-27-2022 10-08-2022 Episodic Other connective tissue disease (2 sources) Pain in left foot; Translations: [Pain in left foot] Onset: 04-08-2017 Episodic Other connective tissue disease (12 sources) Muscle pain; Translations: [Myalgia, unspecified site] Onset: 10-08-2022 10-08-2022 Episodic Other gastrointestinal disorders (2 sources) Diarrhea, unspecified; Translations: [Diarrhea, unspecified] Onset: 03-20-2017 Episodic Other gastrointestinal disorders (12 sources) Constipation; Translations: [Constipation, unspecified] Onset: 10-08-2022 10-08-2022 Episodic Other liver diseases (12 sources) Liver enzymes abnormal; Translations: [Abnormal levels of other serum enzymes] Onset: 10-08-2022 10-08-2022 Episodic Other lower respiratory disease (12 sources) Dyspnea; Translations: [Shortness of breath] Onset: 10-08-2022 Resolved: 12-27-2022 10-08-2022 Episodic Other screening for suspected conditions (not mental disorders or infectious disease) (15 sources) Decreased testosterone level ; Translations: [Other specified abnormal findings of blood chemistry] Onset: 04-07-2017 05-11-2022 Episodic Otitis media and related conditions (15 sources) Otitis media; Translations: [Otitis media, unspecified, right ear] Onset: 10-08-2022 10-08-2022 Episodic Screening or history of mental health and substance abuse (2 sources) Personal history of nicotine dependence; Translations: [Personal history of nicotine dependence] Onset: 03-20-2017 Episodic Unclassified (2 sources) Family history of malignant neoplasm of trachea, bronchus and lung; Translations: [Family history of malig neoplasm of trachea, bronc and lung] Onset: 03-20-2017 Episodic Viral infection (12 sources) Disease caused by 2019-nCoV; Translations: [COVID-19] Onset: 10-08-2022 10-08-2022 Episodic Results Test Name Value Interpretation Reference Range Facility CT HEAD WO IV CONTRASTon CT HEAD WO IV CONTRAST Patient Name: JHON HERNANDEZ : 1975 Exam Date/Time: 04/23/2025 22:35 Procedure: CT HEAD WO IV CONTRAST Ordering Provider: JOHNSON ANIS Reason For Exam: HEADACHE; Trauma/Injury to Head CT BRAIN WITHOUT CONTRAST CLINICAL INDICATION: HEADACHE; Trauma/Injury to Head, head pain TECHNIQUE: Noncontrast CT scan of the brain. Multiplanar reformations. Dose reduction was employed with automated exposure control. COMPARISON: None FINDINGS: Brain volume is normal for age. No hemorrhage, mass effect, or midline shift. No hydrocephalus. No pathologic extra-axial fluid collection. Normal basal cisterns. No evidence of acute cortical infarct. IMPRESSION: 1. No acute intracranial finding. Report Dictated on Electronically Signed By: Avinash Kidd MD Electronically Signed Date/Time: 04/23/2025 11:05 PM EDT Patient arrived ambulatory to room 5 without difficulty. Patient states he tripped and fell hitting his head on corner of desk at home. Patient has approx 5 cm laceration across forehead. Bleeding controlled upon arrival. Patient denies LOC. Last tetanus unknown. Normal [facility] CT Head WO contraston 2024 1. No acute intracranial finding. Report Dictated on Electronically Signed By: Avinash Kidd MD Electronically Signed Date/Time: 04/23/2025 11:05 PM EDT [facility] Patient Name: JHON HERNANDEZ : 1975 Exam Date/Time: 04/23/2025 22:35 Procedure: CT HEAD WO IV CONTRAST Ordering Provider: JOHNSON ANIS Reason For Exam: HEADACHE; Trauma/Injury to Head CT BRAIN WITHOUT CONTRAST CLINICAL INDICATION: HEADACHE; Trauma/Injury to Head, head pain TECHNIQUE: Noncontrast CT scan of the brain. Multiplanar reformations. Dose reduction was employed with automated exposure control. COMPARISON: None FINDINGS: Brain volume is normal for age. No hemorrhage, mass effect, or midline shift. No hydrocephalus. No pathologic extra-axial fluid collection. Normal basal cisterns. No evidence of acute cortical infarct. [facility] Avinash Kidd MD - 04/23/2025 [facility] Name[facility] 1975 [id number] Exam Date/Time: 04/23/2025 22:35 Procedure: CT HEAD WO IV CONTRAST Ordering Provider: JOHNSON ANIS Reason For Exam: HEADACHE; Trauma/Injury to Head CT BRAIN WITHOUT CONTRAST CLINICAL INDICATION: HEADACHE; Trauma/Injury to Head, head pain TECHNIQUE: Noncontrast CT scan of the brain. Multiplanar reformations. Dose reduction was employed with automated exposure control. COMPARISON: None FINDINGS: Brain volume is normal for age. No hemorrhage, mass effect, or midline shift. No hydrocephalus. No pathologic extra-axial fluid collection. Normal basal cisterns. No evidence of acute cortical infarct. IMPRESSION: 1. No acute intracranial finding. Report Dictated on Electronically Signed By: Avinash Kidd MD Electronically Signed Date/Time: 04/23/2025 11:05 PM EDT [facility] Radiology Study observation (narrative) [facility] alth CT Head WO contrastOrdered B y: Avinash Kidd on 04-23-2025 [facility] Work Phone: ED Nursing Noteon 04-23-2025 ED Nursing Note Patient arrived ambulatory to room 5 without difficulty. Patient states he tripped and fell hitting his head on corner of desk at home. Patient has approx 5 cm laceration across forehead. Bleeding controlled upon arrival. Patient denies LOC. Last tetanus unknown. Normal [facility] ED Provider Noteon ED Provider Note Emergency Department Encounter Pt Name: Jhon Hernandez Birthdate 1975 Date of evaluation: 04/23/2025 Provider: Bakari Johnson MD CHIEF COMPLAINT Chief Complaint Patient presents with Head Laceration Fall HISTORY OF PRESENT ILLNESS HPI Jhon Hernandez is a 49 y.o. male with history that includes hypertension and GERD presenting to the emergency department for evaluation of a forehead laceration. Patient tripped and fell and struck his head on a round table and sustained a laceration to his left forehead. No LOC. No headache. Tetanus not up-to-date. No EtOH. Nursing Notes were reviewed. Medical History[1] REVIEW OF SYSTEMS Several elements of the ROS reviewed and otherwise acutely negative except as in the HPI. PHYSICAL EXAM ED Triage Vitals [04/23/252105] Temp Heart Rate Resp BP 36.6 ?C (97.9 ?F) 90 16 (!) 157/69 SpO2 Temp Source Heart Rate Source Patient Position 97 % Oral Monitor Sitting BP Location FiO2 (%) Right arm -- Physical Exam Patient is laying in bed no acute distress. There is a 3 cm laceration over the left forehead. It is 4 mm deep. It is hemostatic. There is no adjacent bony tenderness. PERRL, EOMI. There is no C-spine tenderness. Strength 5/5 with bilateral shoulder extension and bilateral hip flexion. Sensation to light touch intact in bilateral upper and lower extremities. [place] Coma Scale Best Eye Response: Spontaneous Best Verbal Response: Oriented Best Motor Response: Follows commands [place] Coma Scale Score: 15 EMERGENCY DEPARTMENT COURSE and DIFFERENTIAL DIAGNOSIS/MDM: Differential diagnoses include: closed head injury, ICH, skull fracture Diagnostic tests considered but not performed: CT c-spine; do not suspect c-spine fracture Laceration Repair Performed by: Bakari Johnson MD Authorized by: Bakari Johnson MD Consent: Consent obtained: Verbal Consent given by: Patient Risks discussed: Infection, need for additional repair, nerve damage, poor cosmetic result, pain and poor wound healing Laceration details: Location: Face Face location: Forehead Length (cm): 3 Depth (mm): 4 Pre-procedure details: Preparation: Patient was prepped and draped in usual sterile fashion Exploration: Wound exploration: wound explored through full range of motion Wound extent: nerve damage Contaminated: no Treatment: Area cleansed with: Shur-Cleannalee Amount of cleaning: Standard Skin repair: Repair method: Sutures Suture size: 4-0 (5-0 absorbable suture not available) Wound skin closure material used: vicryl rapide. Suture technique: Simple interrupted Number of sutures: 5 Approximation: Approximation: Close Repair type: Repair type: Simple Post-procedure details: Dressing: Open (no dressing) Procedure completion: Tolerated well, no immediate complications ED course: Diagnoses as of 04/23/252307 Laceration of forehead, initial encounter Closed head injury, initial encounter ED medications managed: Medications lidocaine-EPINEPHrine (Xylocaine W/EPI) 1 %-1:[id number] injection 5 mL (5 mL Infiltration Given 04/23/252133) acetaminophen (Tylenol) tablet 1,000 mg (1,000 mg Oral Given 04/23/252133) Tdap (BoostRIX) vaccine 0.5 mL (0.5 mL IntraMUSCular Given 04/23/252133) I discussed ED return precautions. DISPOSITION/PLAN Discharge 04/23/2025 10:50:22 PM PATIENT REFERRED TO: [facility] [address] [facility] [id number] As needed Bakari Johnson MD Emergency Medicine [1] Past Medical History: Diagnosis Date Allergic rhinitis Anxiety GERD (gastroesophageal reflux disease) Hypertension Low testosterone Substance abuse ([facility]) Bakari Johnson MD 04/23/252307 [facility] No Panel Informationon 04-23 Bakari Johnson MD 04/23/2025 11:08 PM Laceration Repair Performed by: Bakari Johnson MD Authorized by: Bakari Johnson MD Consent: Consent obtained: Verbal Consent given by: Patient Risks discussed: Infection, need for additional repair, nerve damage, poor cosmetic result, pain and poor wound healing Laceration details: Location: Face Face location: Forehead Length (cm): 3 Depth (mm): 4 Pre-procedure details: Preparation: Patient was prepped and draped in usual sterile fashion Exploration: Wound exploration: wound explored through full range of motion Wound extent: nerve damage Contaminated: no Treatment: Area cleansed with: Connor-Cleannalee Amount of cleaning: Standard Skin repair: Repair method: Sutures Suture size: 4-0 (5-0 absorbable suture not available) Wound skin closure material used: vicryl rapide. Suture technique: Simple interrupted Number of sutures: 5 Approximation: Approximation: Close Repair type: Repair type: Simple Post-procedure details: Dressing: Open (no dressing) Procedure completion: Tolerated well, no immediate complications [facility] Office Visiton 05-06-2024 Follow-up visit [id number] Jhon Hernandez 1975 M Date Provider Department Center 05/06/2024 [id number] [facility] None Family History Problem Relation Age of Onset Cancer Mother Comments: lung No Known Problems Father No Known Problems Brother Family Status - Relation Status Age at Mother Father Alive Brother Alive Level of Service:[id number] [place] OFFICE/OUTPATIENT ESTABLISHED LOW MDM 20 MIN Reason for Visit and Comments: 1 Year Follow-up [670] Normal [facility] Progress Noteon 05-06-2024 Progress Note [facility] Cardiology Note Chief Complaint: Chief Complaint Patient presents with 1 Year Follow-up History of Present Illness: Jhon Hernandez is a 48 y.o. male presents in follow-up after missing prior follow-up appointments. I met him in December 2022 because of atrial fibrillation after binge drinking. He went to the emergency room was cardioverted. He did well at that time. He quit binge drinking, he began exercising and dieting and lost about 40 pounds, and he started taking his antihypertensive drugs with good blood pressure control. That has not really resulted in improvement in his blood pressure and his had no significant problems with his atrial fibrillation. Past Medical History: Past Medical History: Diagnosis Date Allergic rhinitis Anxiety GERD (gastroesophageal reflux disease) Hypertension Low testosterone Substance abuse ([facility]) ([facility]) Past Surgical History History reviewed. No pertinent surgical history. Family History Family History Problem Relation Name Age of Onset Cancer Mother lung No Known Problems Father No Known Problems Brother Social History Social History Tobacco Use Smoking status: Former Current packs/day: 0.00 Types: Cigarettes Quit date: 10/23/2012 Years since quittin.5 Smokeless tobacco: Former Vaping Use Vaping status: Never Used Substance Use Topics Alcohol use: Not Currently Drug use: No Comment: 1 cup of coffee a day and sometimes 2 Allergies: Allergies Allergen Reactions Ulen Oil Avocado Banana Medications: Current Outpatient Medications: albuterol 108 (90 Base) MCG/ACT inhaler, INHALE 2 PUFFS BY MOUTH EVERY 6 HOURS NEEDED FOR SHORTNESS OF BREATH FOR WHEEZING, Disp: , Rfl: busPIRone (Buspar) 10 MG tablet, Take 10 mg by mouth 3 times daily., Disp: , Rfl: hydrOXYzine HCl (Atarax) 10 MG tablet, TAKE 1 TABLET BY MOUTH FIVE TIMES DAILY NEEDED FOR ANXIETY, Disp: , Rfl: ibuprofen 800 MG tablet, Take 800 mg by mouth See administration instructions. PRN, Disp: , Rfl: lisinopril 20 MG tablet, Take 20 mg by mouth daily., Disp: , Rfl: pantoprazole (ProtoNix) 40 MG EC tablet, Take 40 mg by mouth daily., Disp: , Rfl: baclofen (Lioresal) 10 MG tablet, Take 10 mg by mouth See administration instructions. prn, Disp: , Rfl: Review of Systems: Review of Systems Constitutional: Negative. Respiratory: Negative for apnea and shortness of breath (with walking up a hill). Cardiovascular: Positive for palpitations (only when he is exhausted, dehydration or drinks alcohol - short bursts). Negative for chest pain and leg swelling. Neurological: Negative. Negative for dizziness, syncope and light-headedness. Physical Examination: Vitals: Vitals: 05/06/24 1600 BP: 126/70 BP Location: Left arm Patient Position: Sitting BP Cuff Size: Large adult Pulse: 78 Resp: 16 Weight: 259 lb (117 kg) Height: 5' 7 (1.702 m) Body mass index is 40.57 kg/m?. Physical Exam Constitutional: General: He is not in acute distress. Appearance: Normal appearance. He is not ill-appearing. HENT: Head: Normocephalic and atraumatic. Nose: Nose normal. Eyes: General: No scleral icterus. Conjunctiva/sclera: Conjunctivae normal. Neck: Vascular: No carotid bruit or JVD. Cardiovascular: Rate and Rhythm: Normal rate and regular rhythm. Heart sounds: Normal heart sounds. No murmur heard. Pulmonary: Effort: Pulmonary effort is normal. Breath sounds: No wheezing or rales. Musculoskeletal: General: No deformity. Right lower leg: No edema. Left lower leg: No edema. Skin: General: Skin is warm and dry. Neurological: General: No focal deficit present. Mental Status: He is alert. Motor: No weakness. Gait: Gait normal. Psychiatric: Mood and Affect: Mood normal. Thought Content: Thought content normal. Laboratory Tests: Lab Results Component Value Date WBC 8.8 10/06/2022 HGB 16.2 10/06/2022 HCT 45.5 10/06/2022 MCV 81.4 10/06/2022 PLT 230 10/06/2022 Lab Results Component Value Date GLUCOSE 162 (H) 10/06/2022 CALCIUM 9.6 10/06/2022 NA 138 10/06/2022 K 3.6 10/06/2022 CO2 19 (L) 10/06/2022 CL 109 (H) 10/06/2022 BUN 24 (H) 10/06/2022 CREATININE 1.02 10/06/2022 Assessment and Plan: The patient is doing well. He should continue to focus on hypertension control and weight loss. He should refrain from binge drinking. He will stay on the lisinopril. He will follow-up in a year. Normal [facility] Basophil percentageOrdered B y: Jono Weathers on 10-10-2023 Cholesterol [Mass/Vol] 212 mg/dL <200 [facility] Comment on above: <200 mg/dL Desirable 200-240 mg/dL Borderline >240 mg/dL High Risk Triglyceride [Mass/Vol] 145 mg/dL <199 [facility] Comment on above: The drugs N-Acetylcy steine and Metamizole may falsely depress this assay.Serum Triglycerides Reference Interval Normal <150 mg/dL Borderline high 150 - 199 mg/dL High 200 - 499 mg/dL Very High > or = 500 mg/dL Laboratory - Chemistry and C hemistry - challengeOrdered By: Jono Weathers on 10-10-2023 Cholesterol in HDL [Mass/Vol] 57 mg/dL >40 [facility] Comment on above: The drugs N-Acetylcy steine and Metamizole may falsely depress this assay. Reference Range HDL <40 mg/dL Low HDL Cholesterol HDL >or= 60 mg/dL High HDL Cholesterol Cholesterol in LDL [Mass/Vol] 126 mg/dL 0-130 [facility] Lipid Profileon 10-10-2023 Cholesterol [Mass/Vol] 212 mg/dL High 200 [facility] Comment on above: Result Comment: <200 mg/dL Desirable 200-240 mg/dL Borderline >240 mg/dL High Risk Performed By: #### L 500.6327 #### [facility] [address] [place], [address] Cholesterol in HDL [Mass/Vol] 57 mg/dL Normal [facility] Comment on above: Result Comment: The drugs N-Acetylcysteine and Metamizole may falsely depress this assay. Reference Range HDL <40 mg/dL Low HDL Cholesterol HDL >or= 60 mg/dL High HDL Cholesterol Performed By: #### L 500.4100 #### [facility] [address] [place], [address] Cholesterol in LDL [Mass/Vol] 126 mg/dL Normal 0-130 [facility] Comment on above: Performed By: #### L 500.4100 #### [facility] [address] [place], [address] Cholesterol in VLDL [Mass/Vol] 29 mg/dL Normal 5-40 [facility] Comment on above: Performed By: #### L 500.4100 #### [facility] [address] [place], [address] Triglyceride [Mass/Vol] 145 mg/dL Normal [facility] Comment on above: Result Comment: The drugs N-Acetylcysteine and Metamizole may falsely depress this assay. Serum Triglycerides Reference Interval Normal <150 mg/dL Borderline high 150 - 199 mg/dL High 200 - 499 mg/dL Very High > or = 500 mg/dL Performed By: #### L 500.4100 #### [facility] [address] [place], [address] No Panel InformationOrdered By: Jono Weathers on 10-10-2023 VLDL Cholesterol 29 mg/dL 5-40 [facility] CBC W/Diff, Automatedon 11-2 Absolute Lymph 2.47 X10 3/uL Normal 0.83-4.51 [facility] Comment on above: Performed By: #### L 100.0100, L500.4050, L500.4100, [id number] #### [facility] [address] [place], [address] Absolute Neut 5.0 X10 3/uL Normal 2.0-7.7 [facility] Comment on above: Performed By: #### L 100.0100, L500.4050, L500.4100, [id number] #### [facility] [address] [place], [address] Basophils/100 WBC (Bld) 0.6 % Normal 0-1 [facility] Comment on above: Performed By: #### L 100.0100, L500.4050, L500.4100, [id number] #### [facility] [address] [place], [address] Eosinophils/100 WBC (Bld) 2.7 % Normal 0-5 [facility] Comment on above: Performed By: #### L 100.0100, L500.4050, L500.4100, [id number] #### [facility] [address] [place], [address] Erythrocyte distribution width (RBC) [Ratio] 12.8 % Normal 11.6-14.6 [facility] Comment on above: Performed By: #### L 100.0100, L500.4050, L500.4100, [id number] #### [facility] [address] [place], [address] Hematocrit (Bld) [Volume fraction] 47.2 % Normal 40-54 [facility] Comment on above: Performed By: #### L 100.0100, L500.4050, L500.4100, [id number] #### [facility] [address] [place], [address] Hemoglobin (Bld) [Mass/Vol] 15.7 g/dL Normal 13.0-16.5 [facility] Comment on above: Performed By: #### L 100.0100, L500.4050, L500.4100, [id number] #### [facility] [address] [place], [address] IG% 0.100 Normal 0.0-0.9 [facility] Comment on above: Result Comment: IG% - Immature Granulocytes (promyelocytes, myelocytes and metamyelocytes) > 1% indicates that a LEFT SHIFT is Present. Performed By: #### L 100.0100, L500.4050, L500.4100, [id number] #### [facility] [address] [place], [address] Lymphocytes/100 WBC (Bld) 30.3 % Normal 19-41 [facility] Comment on above: Performed By: #### L 100.0100, L500.4050, L500.4100, [id number] #### [facility] [address] [place], [address] MCH (RBC) [Entitic mass] 28.6 pg Normal 27.0-32.0 [facility] Comment on above: Performed By: #### L 100.0100, L500.4050, L500.4100, [id number] #### [facility] [address] [place], [address] MCHC (RBC) [Mass/Vol] 33.3 g/dL Normal 32-36 [facility] Comment on above: Performed By: #### L 100.0100, L500.4050, L500.4100, [id number] #### [facility] [address] [place], [address] MCV (RBC) [Entitic vol] 86.0 fL Normal 80-94 [facility] Comment on above: Performed By: #### L 100.0100, L500.4050, L500.4100, [id number] #### [facility] [address] [place], [address] Monocytes/100 WBC (Bld) 5.4 % Normal 0-10 [facility] Comment on above: Performed By: #### L 100.0100, L500.4050, L500.4100, [id number] #### [facility] [address] [place], [address] Neutrophils/100 WBC (Bld) 60.9 % Normal 47-70 [facility] Comment on above: Performed By: #### L 100.0100, L500.4050, L500.4100, [id number] #### [facility] [address] [place], [address] Nucleated RBC (Bld) [#/Vol] 0 10*3/uL Normal 0-5 [facility] Comment on above: Performed By: #### L 100.0100, L500.4050, L500.4100, [id number] #### [facility] [address] [place], [address] Platelet mean volume (Bld) [Entitic vol] 9.0 fL Normal 6.2-12.0 [facility] Comment on above: Performed By: #### L 100.0100, L500.4050, L500.4100, [id number] #### [facility] [address] [place], [address] Platelets (Bld) [#/Vol] 278 10*3/uL Normal 150-450 [facility] Comment on above: Performed By: #### L 100.0100, L500.4050, L500.4100, [id number] #### [facility] [address] [place], [address] RBC (Bld) [#/Vol] 5.49 10*6/uL Normal 4.6-6.2 [facility] [place] Comment on above: Performed By: #### L 100.0100, L500.4050, L500.4100, [id number] #### [facility] [address] [place], [address] RDW SD 40.2 fl Normal 35.1-43.9 [facility] Comment on above: Performed By: #### L 100.0100, L500.4050, L500.4100, [id number] #### [facility] [address] [place], [address] WBC (Bld) [#/Vol] 8.1 10*3/uL Normal 4.4-11.0 [facility] Comment on above: Performed By: #### L 100.0100, L500.4050, L500.4100, [id number] #### [facility] [address] [place], [address] Comprehensive Metabolic Prof [facility] 06-18-2023 Albumin [Mass/Vol] 4.2 g/dL Normal 3.2-5.0 [facility] Comment on above: Performed By: #### L 100.0100, L500.4050, L500.4100, [id number] #### [facility] [address] [place], [address] Albumin/Globulin [Mass ratio] 1.1 {ratio} Normal 0.9-2.4 [facility] Comment on above: Performed By: #### L 100.0100, L500.4050, L500.4100, [id number] #### [facility] [address] [place], [address] ALK P 69 U/L Normal 45-117 [facility] Comment on above: Performed By: #### L 100.0100, L500.4050, L500.4100, [id number] #### [facility] [address] [place], [address] ALT [Catalytic activity/Vol] 55 U/L Normal 16-61 [facility] Comment on above: Performed By: #### L 100.0100, L500.4050, L500.4100, [id number] #### [facility] [address] [place], [address] AST [Catalytic activity/Vol] 30 U/L Normal 15-37 [facility] Comment on above: Performed By: #### L 100.0100, L500.4050, L500.4100, [id number] #### [facility] [address] [place], [address] Bilirubin [Mass/Vol] 0.60 mg/dL Normal 0.20-1.00 [facility] Comment on above: Result Comment: For patients on eltrombopag therapy, use of Dimension [place] TBIL is not recommended. Performed By: #### L 100.0100, L500.4050, L500.4100, [id number] #### [facility] [address] [place], [address] BUN/CRE 16.5 RATIO Normal 10-20 [facility] Comment on above: Performed By: #### L 100.0100, L500.4050, L500.4100, [id number] #### [facility] [address] [place], [address] CA,Total 9.1 mg/dL Normal 8.5-10.1 [facility] Comment on above: Performed By: #### L 100.0100, L500.4050, L500.4100, [id number] #### [facility] [address] [place], [address] Chloride [Moles/Vol] 105 mmol/L Normal 98-107 [facility] Comment on above: Performed By: #### L 100.0100, L500.4050, L500.4100, [id number] #### [facility] [address] [place], [address] CO2 [Moles/Vol] 25.0 mmol/L Normal 21.0-32.0 [facility] Comment on above: Performed By: #### L 100.0100, L500.4050, L500.4100, [id number] #### [facility] [address] [place], [address] Creatinine [Mass/Vol] 1.15 mg/dL Normal 0.70-1.30 [facility] Comment on above: Result Comment: The validity of the calculated GFR GFRAA in patients over 70 years has not been determined. Clinical correlation is essential. Performed By: #### L 100.0100, L500.4050, L500.4100, [id number] #### [facility] [address] [place], [address] EST GFR - AA 88 mL/min Normal >60 [facility] Comment on above: Result Comment: Afri can Stateless GFR Calc Performed By: #### L 100.0100, L500.4050, L500.4100, [id number] #### [facility] [address] [place], [address] GAP 8 Normal 5-15 [facility] Comment on above: Performed By: #### L 100.0100, L500.4050, L500.4100, [id number] #### [facility] [address] [place], [address] GFR/1.73 sq M.predicted among non-blacks MDRD (S/P/Bld) [Vol rate/Area] 73 mL/min/{1.73_m2} Normal >60 [facility] Comment on above: Result Comment: Non- GFR Calc Performed By: #### L 100.0100, L500.4050, L500.4100, [id number] #### [facility] [address] [place], [address] Globulin (S) [Mass/Vol] 3.8 g/dL Normal 2.2-4.2 [facility] Comment on above: Performed By: #### L 100.0100, L500.4050, L500.4100, [id number] #### [facility] [address] [place], [address] Glucose [Mass/Vol] 101 mg/dL Normal 74-106 [facility] Comment on above: Result Comment: Fast ing Glucose result from 100 to 125 mg/dL suggests IMPAIRED HOMEOSTASIS per A.D.A. criteria. Performed By: #### L 100.0100, L500.4050, L500.4100, [id number] #### [facility] [address] [place], [address] Potassium [Moles/Vol] 3.9 mmol/L Normal 3.5-5.1 [facility] Comment on above: Performed By: #### L 100.0100, L500.4050, L500.4100, [id number] #### [facility] [address] [place], [address] Sodium [Moles/Vol] 138 mmol/L Normal 136-145 [facility] Comment on above: Performed By: #### L 100.0100, L500.4050, L500.4100, [id number] #### [facility] [address] [place], [address] T PROT 8.0 g/dL Normal 6.4-8.2 [facility] Comment on above: Performed By: #### L 100.0100, L500.4050, L500.4100, [id number] #### [facility] [address] [place], [address] Urea nitrogen [Mass/Vol] 19 mg/dL High 7-18 [facility] Comment on above: Performed By: #### L 100.0100, L500.4050, L500.4100, [id number] #### [facility] [address] [place], [address] Lipid Profileon 06-18-2023 Cholesterol [Mass/Vol] 286 mg/dL High 200 [facility] Comment on above: Result Comment: <200 mg/dL Desirable 200-240 mg/dL Borderline >240 mg/dL High Risk Performed By: #### L 100.0100, L500.4050, L500.4100, [id number] #### [facility] [address] [place], [address] Cholesterol in HDL [Mass/Vol] 54 mg/dL Normal [facility] Comment on above: Result Comment: The drugs N-Acetylcysteine and Metamizole may falsely depress this assay. Reference Range HDL <40 mg/dL Low HDL Cholesterol HDL >or= 60 mg/dL High HDL Cholesterol Performed By: #### L 100.0100, L500.4050, L500.4100, [id number] #### [facility] [address] [place], [address] Cholesterol in LDL [Mass/Vol] 168 mg/dL High 0-130 [facility] Comment on above: Performed By: #### L 100.0100, L500.4050, L500.4100, [id number] #### [facility] [address] [place], [address] Cholesterol in VLDL [Mass/Vol] 64 mg/dL High 5-40 [facility] Comment on above: Performed By: #### L 100.0100, L500.4050, L500.4100, [id number] #### [facility] [address] [place], [address] Triglyceride [Mass/Vol] 318 mg/dL High [facility] Comment on above: Result Comment: The drugs N-Acetylcysteine and Metamizole may falsely depress this assay. Serum Triglycerides Reference Interval Normal <150 mg/dL Borderline high 150 - 199 mg/dL High 200 - 499 mg/dL Very High > or = 500 mg/dL Performed By: #### L 100.0100, L500.4050, L500.4100, [id number] #### [facility] [address] [place], [address] Thyroid Stim Hormone (TSH)on 06-18-2023 TSH 1.06 uIU/mL Normal 0.358-3.74 [facility] Comment on above: Performed By: #### L 100.0100, L500.4050, L500.4100, [id number] #### [facility] [address] [place], [address] Absolute lymphocyte countOrd ered By: Jono Weathers on 06-17-2023 Lymphocytes Auto (Unsp spec) [#/Vol] 2.47 10*3/uL 0.83-4.51 [facility] Basophil percentageOrdered B y: Jono Weathers on 06-17-2023 Basophils/100 WBC (Bld) 0.6 % 0-1 [facility] Bilirubin [Mass/Vol] 0.60 mg/dL 0.20-1.00 [facility] Comment on above: For patients on eltr ombopag therapy, use of Dimension [place] TBIL is not recommended. Chloride [Moles/Vol] 105 mmol/L 98-107 [facility] Cholesterol [Mass/Vol] 286 mg/dL <200 [facility] Comment on above: <200 mg/dL Desirable 200-240 mg/dL Borderline >240 mg/dL High Risk Eosinophils/100 WBC (Bld) 2.7 % 0-5 [facility] Glucose [Mass/Vol] 101 mg/dL 74-106 [facility] Comment on above: Fasting Glucose resu lt from 100 to 125 mg/dL suggests IMPAIRED HOMEOSTASIS per A.D.A. criteria. Neutrophils (Bld) [#/Vol] 5.0 10*3/uL 2.0-7.7 [facility] Neutrophils/100 WBC (Bld) 60.9 % 47-70 [facility] Potassium [Moles/Vol] 3.9 mmol/L 3.5-5.1 [facility] Protein [Mass/Vol] 8.0 g/dL 6.4-8.2 [facility] Sodium [Moles/Vol] 138 mmol/L 136-145 [facility] Triglyceride [Mass/Vol] 318 mg/dL <199 [facility] Comment on above: The drugs N-Acetylcy steine and Metamizole may falsely depress this assay.Serum Triglycerides Reference Interval Normal <150 mg/dL Borderline high 150 - 199 mg/dL High 200 - 499 mg/dL Very High > or = 500 mg/dL WBC (Bld) [#/Vol] 8.1 10*3/uL 4.4-11.0 [facility] Blood erythrocytes count (nu mber/volume)Ordered By: Jono Weathers on 06-17-2023 RBC (Bld) [#/Vol] 5.49 10*6/uL 4.6-6.2 [facility] [place] Blood hemoglobin measurement (mass/volume)Ordered By: Jono Weathers on 06-17-2023 Hemoglobin (Bld) [Mass/Vol] 15.7 g/dL 13.0-16.5 [facility] Blood lymphocytes/100 leukoc ytesOrdered By: Jono Weathers on 06-17-2023 Lymphocytes/100 WBC (Bld) 30.3 % 19-41 [facility] Blood monocytes/100 leukocyt esOrdered By: Jono Weathers on 06-17-2023 Monocytes/100 WBC (Bld) 5.4 % 0-10 [facility] Blood platelet mean volumeOr dered By: Jono Weathers on 06-17-2023 Platelet mean volume (Bld) [Entitic vol] 9.0 fL 6.2-12.0 [facility] Determination of erythrocyte mean corpuscular volume (MCV)Ordered By: Jono Weathers on 06-17-2023 MCV (RBC) [Entitic vol] 86.0 fL 80-94 [facility] Hematocrit Auto (Bld) [Volum e fraction]Ordered By: Jono Weathers on 06-17-2023 Hematocrit (Bld) [Volume fraction] 47.2 % 40-54 [facility] - Chemistry and C hemistry - challengeOrdered By: Jono Weathers on 06-17-2023 ALP [Catalytic activity/Vol] 69 U/L 45-117 [facility] ALT [Catalytic activity/Vol] 55 U/L 16-61 [facility] CO2 [Moles/Vol] 25.0 mmol/L 21.0-32.0 [facility] Globulin (S) [Mass/Vol] 3.8 g/dL 2.2-4.2 [facility] Urea nitrogen/Creatinine [Mass ratio] 16.5 mg/mg 10-20 [facility] - Hematology and Cell countsOrdered By: Jono Weathers on 06-17-2023 Erythrocyte distribution width (RBC) [Entitic vol] 40.2 fL 35.1-43.9 [facility] Erythrocyte distribution width (RBC) [Ratio] 12.8 % 11.6-14.6 [facility] [facility] Immature granulocytes/100 WBC (Bld) 0.100 % 0.0-0.9 [facility] Comment on above: IG% - Immature Granu locytes (promyelocytes, myelocytes and metamyelocytes) > 1% indicates that a LEFT SHIFT is Present. MCH (RBC) [Entitic mass] 28.6 pg 27.0-32.0 [facility] Nucleated RBC/100 WBC (Bld) [Ratio] 0 % 0-5 [facility] MCHC Auto (RBC) [Mass/Vol]Or dered By: Jono Weathers on 06-17-2023 MCHC (RBC) [Mass/Vol] 33.3 g/dL 32-36 [facility] No Panel InformationOrdered By: Jono Weathers on 06-17-2023 Estimated GFR (MDRD) Amer 88 mL/min >60 [facility] Comment on above: GFR Calc Estimated GFR (MDRD) Non-Af Amer 73 mL/min >60 [facility] Comment on above: Non- GFR Calc Thyroid Stimulating Hormone (TSH) 1.06 uIU/mL 0.358-3.74 [facility] Platelets bldOrdered By: Krishna Weathers on 06-17-2023 Platelets (Bld) [#/Vol] 278 10*3/uL 150-450 [facility] Serum or plasma albumin pierre urement (mass/volume)Ordered By: Jono Weathers on 06-17-2023 Albumin [Mass/Vol] 4.2 g/dL 3.2-5.0 [facility] Serum or plasma albumin/glob ulin mass ratioOrdered By: Jono Weathers on 06-17-2023 Albumin/Globulin [Mass ratio] 1.1 {ratio} 0.9-2.4 [facility] Serum or plasma calcium pierre urement (mass/volume)Ordered By: Jono Weathers on 06-17-2023 Calcium [Mass/Vol] 9.1 mg/dL 8.5-10.1 [facility] Serum or plasma cholesterol in HDL measurement (mass/volume)Ordered By: Jono Weathers on 06-17-2023 Cholesterol in HDL [Mass/Vol] 54 mg/dL >40 [facility] Comment on above: The drugs N-Acetylcy steine and Metamizole may falsely depress this assay. Reference Range HDL <40 mg/dL Low HDL Cholesterol HDL >or= 60 mg/dL High HDL Cholesterol Serum or plasma cholesterol in VLDL measurement (mass/volume)Ordered By: Jono Weathers on 06-17-2023 Cholesterol in VLDL [Mass/Vol] 64 mg/dL 5-40 [facility] Serum or plasma creatinine m easurement (mass/volume)Ordered By: Jono Weathers on 06-17-2023 Creatinine [Mass/Vol] 1.15 mg/dL 0.70-1.30 [facility] Comment on above: The validity of the calculated GFR & GFRAA in patients over 70 years has not been determined. Clinical correlation is essential. Serum or plasma low density lipoprotein (LDL) cholesterol measurement (mass/volume)Ordered By: Jono Weathers on 06-17-2023 Cholesterol in LDL [Mass/Vol] 168 mg/dL 0-130 [facility] Serum or plasma urea nitroge n measurement (mass/volume)Ordered By: Jono Weathers on 06-17-2023 Urea nitrogen [Mass/Vol] 19 mg/dL 7-18 [facility] Thin prep Papanicolaou smear with manual screeningOrdered By: Jono Weathers on 06-17-2023 Thin prep Papanicolaou smear with manual screening 30 U/L 15-37 [facility] Thin prep Papanicolaou smear with manual screening 8 5-15 [facility] No Panel Informationon 12-27 Sinus Rhythm WITHIN NORMAL LIMITS [facility] [employer] [facility] [employer] Heart TransthoracicOrdere d By: Quintin Beck on 11-06-2022 Ascending Aorta 2.8 cm [facility] Work Phone: Ascending Aorta Index 1.22 cm/m2 [facility] [employer] Work Phone: E/E' Lateral 9.56 [facility] [employer] Work Phone: E/E' Ratio (Averaged) 10.15 [facility] [employer] Work Phone: E/E' Septal 10.75 [facility] [employer] Work Phone: EF BP 55 % 55 - 100 % [employer] Phone: Fractional Shortening 2D 45 % 28 - 44 % [facility] [employer] Phone: Global Longitudinal Strain -15.5 % [facility] [employer] Phone: Interpretation and review of laboratory results Abnormal [facility] [employer] Phone: IVC Diameter 1.[address] [facility] [employer] Work Phone: IVSd 0.8 cm 0.6 - 1.[address] [facility] [employer] Phone: LA Volume 2C 71 mL Abnormal 18 - [address] [facility] [employer] Phone: LA Volume 4C 47 mL 18 - 58 mL [facility] [employer] Work Phone: LA Volume A/L 64 mL [facility] [employer] Work Phone: LA Volume Index 2C 31 mL/m2 16 - 34 mL/m2 [employer] Work Phone: LA Volume Index 4C 20 mL/m2 16 - 34 mL/m2 [facility] [employer] Work Phone: LA Volume Index A/L 28 mL/m2 16 - 34 mL/m2 [facility] [employer] Phone: LV E' Lateral Velocity 9 cm/s [facility] Work Phone: LV E' Septal Velocity 8 cm/s [facility] Work Phone: LV EDV A2C [address] [facility] Work Phone: LV EDV A4C [address] [facility] Work Phone: LV EDV BP 107 mL 67 - [address] [facility] Work Phone: LV EDV Index A2C 43 mL/m2 [facility] Work Phone: LV EDV Index A4C 49 mL/m2 [facility] Work Phone: LV EDV Index BP 47 mL/m2 [facility] Work Phone: LV Ejection Fraction A2C 47 % [facility] Work Phone: LV Ejection Fraction A4C 61 % [facility] Work Phone: LV ESV A2C [address] [facility] Work Phone: LV ESV A4C [address] [facility] Work Phone: LV ESV BP 49 mL 22 - [address] [facility] Work Phone: LV ESV Index A2C 23 mL/m2 [facility] Work Phone: LV ESV Index A4C 19 mL/m2 [facility] Work Phone: LV ESV Index BP 21 mL/m2 [facility] Work Phone: LV Mass 2D 110.8 g 88 - [address] [facility] Work Phone: LV Mass 2D Index 48.2 g/m2 Abnormal 49 - 115 g/m2 [facility] Work Phone: LV RWT Ratio 0.24 [facility] Work Phone: LVIDd 4.9 cm 4.2 - 5.[address] [facility] Work Phone: LVIDd Index 2.13 cm/m2 [employer] Work Phone: LVIDs 2.7 cm [employer] Work Phone: LVIDs Index 1.17 cm/m2 [employer] Work Phone: LVOT Area 3.8 cm2 [employer] Work Phone: LVOT Diameter 2.2 cm [facility] Phone: LVPWd 0.6 cm 0.6 - 1.0 cm [employer] Work Phone: MV A Velocity 0.52 m/s [facility] Phone: MV E Velocity 0.86 m/s [facility] [employer] Work Phone: MV E Wave Deceleration Time 198.6 ms [facility] Phone: MV E/A 1.65 [facility] Phone: RV Free Wall Peak S' 12 cm/s [facility] [employer] Work Phone: TAPSE 2.3 cm 1.7 cm [facility] Work Phone: [employer] Phone: [facility]le: Left ventricle size is normal. Normal wall thickness. Normal left ventricular systolic function. EF by 2D Simpsons Biplane is 55%. Global longitudinal strain is -15.5%. Normal wall motion. Right Ventricle: Right ventricle size is normal. Normal systolic function. No significant valvular abnormalities. Left Ventricle Left ventricle size is normal. Normal wall thickness. Normal left ventricular systolic function. EF by 2D [employer]psons Biplane is 55%. Global longitudinal strain is -15.5%. Normal wall motion. Normal diastolic function. Right Ventricle Right ventricle size is normal. Normal systolic function. Left Atrium Left atrium size is normal. Right Atrium Right atrium size is normal. IVC/SVC IVC diameter is normal and decreases greater than 50% during inspiration; therefore the estimated right atrial pressure is normal (~3 mmHg). Mitral Valve Valve structure is normal. No regurgitation. No stenosis noted. Tricuspid Valve Valve structure is normal. Trace regurgitation. Aortic Valve Trileaflet. No cusp thickening. No cusp calcification. No regurgitation. No stenosis. Pulmonic Valve Valve structure is normal. Trace regurgitation. Ascending Aorta Normal sized sinuses of Valsalva and ascending aorta. Pericardium No pericardial effusion. Septum No interatrial shunt visualized on color Doppler. Pulmonary Artery Normal pulmonary arteries. Study Details Image quality: adequate. Additional technique includes myocardial strain. Blood pressure: 144/86 mmHg. No contrast was given. Echo Additional Conclusions No significant valvular abnormalities. CV CPACS No Panel Informationon 10-07 P [place] 14 degrees [facility] NH Interval 175 ms [facility] QRS [place] -10 degrees [facility] QRSD Interval 97 [facility] 349 ms [facility] QTC Interval 421 ms [facility] T Wave [place] 13 degrees [facility] Sinus rhythm with normal rate, intervals and QRS duration. No acute ischemic changes. Electronically Signed On 10-07-2022 0:10:18 EST by Jan Nance CV EPIPHANY Jan Nance, DO - 10/07/2022 IMPRESSION: Sinus rhythm with normal rate, intervals and QRS duration. No acute ischemic changes. Electronically Signed On 10-07-2022 0:10:18 EST by Jan Nance [facility] Vital signson 10-07-2022 Heart rate 87 /min bpm [facility] Basic metabolic 1998 panelon 10-06-2022 Anion gap [Moles/Vol] 10 mmol/L 3 - 13 mmol/L [facility] Calcium [Mass/Vol] 9.6 mg/dL 8.4 - 10. 4 mg/dL [facility] Chloride [Moles/Vol] 109 mmol/L High 98 - 10 7 mmol/L [facility] CO2 [Moles/Vol] 19 mmol/L Low 22 - 30 mmol/L [facility] Creatinine [Mass/Vol] 1.02 mg/dL 0.66 - 1.25 mg/dL [facility] GFR/1.73 sq M.predicted MDRD (S/P/Bld) [Vol rate/Area] - PINF [facility] Comment on above: Calculation based on the Chronic Kidney Disease Epidemiology Collaboration (CKD-EPI) equation refit without adjustment for race Glucose [Mass/Vol] 162 mg/dL High 70 - 100 mg/dL [facility] Interpretation and review of laboratory results Abnormal [facility] Potassium [Moles/Vol] 3.6 mmol/L 3.5 - 5.1 mmol/L [facility] Sodium [Moles/Vol] 138 mmol/L 135 - 145 mmol/L [facility] Urea nitrogen [Mass/Vol] 24 mg/dL High 9 - 20 mg/d L [facility] CBC W Auto Differential pane l (Bld)Ordered By: Fer Daily on 10-06-2022 Basophils (Bld) [#/Vol] 0.1 10*3/uL 0.0 - 0.2 10*3/uL [facility] Basophils/100 WBC (Bld) 0.7 % 0.0 - 2.0 % [facility] Eosinophils (Bld) [#/Vol] 0.2 10*3/uL 0.0 - 0.5 10*3/uL [facility] Eosinophils/100 WBC (Bld) 1.8 % 1.0 - 6.0 % [facility] Erythrocyte distribution width (RBC) [Ratio] 12.8 % 11.5 - 14.5 % [facility] Hematocrit (Bld) [Volume fraction] 45.5 % 40.0 - 52.0 % [facility] Hemoglobin (Bld) [Mass/Vol] 16.2 g/dL 13.0 - 18.0 g/dL [facility] Immature granulocytes (Bld) [#/Vol] 0.0 10*3/uL NINF - 0.0 10*3/uL [facility] Immature granulocytes/100 WBC (Bld) 0.2 % High NINF - 0.0 % [facility] Interpretation and review of laboratory results Abnormal [facility] Lymphocytes (Bld) [#/Vol] 2.9 10*3/uL 1.0 - 4.3 10*3/uL [facility] Lymphocytes/100 WBC (Bld) 33.3 % 20.0 - 40.0 % [facility] MCH (RBC) [Entitic mass] 29.0 pg 26. 0 - 34.0 pg [facility] MCHC (RBC) [Mass/Vol] 35.6 % 32.0 - 36.0 % [facility] MCV (RBC) [Entitic vol] 81.4 fL 80.0 - 98.0 fL [facility] Monocytes (Bld) [#/Vol] 0.4 10*3/uL 0.0 - 0.8 10*3/uL [facility] Monocytes/100 WBC (Bld) 4.0 % 2.0 - 10.0 % [facility] Neutrophils (Bld) [#/Vol] 5.3 10*3/uL 1.8 - 7.0 10*3/uL [facility] Neutrophils/100 WBC (Bld) 60.0 % 40.0 - 80.0 % [facility] Platelet mean volume (Bld) [Entitic vol] 8.6 fL 7.4 - 12.4 fL [facility] Comment on above: MPV is a calculated measurement using platelet volume ratio Platelets (Bld) [#/Vol] 230 10*3/uL 140 - 440 10*3/uL [facility] RBC (Bld) [#/Vol] 5.59 10*6/uL 4.40 - 5.9 0 10*6/uL [facility] WBC (Bld) [#/Vol] 8.8 10*3/uL 3.6 - 10.7 10*3/uL [facility] Laboratory - Chemistry and C hemistry - challengeon 10-06-2022 TSH Qn 2.373 m[IU]/L [facility] Troponin I.cardiac [Mass/Vol] ng/mL 0.000 - 0.034 ng/mL [facility] Magnesium [Mass/Vol] 1.8 mg/dL 1.6 - 2 .3 mg/dL [facility] Magnesium [Mass/Vol]on 10-06 Interpretation and review of laboratory results Normal [facility] No Panel Informationon 10-06 P [place] -1 degrees [facility] NH Interval 190 ms [facility] QRS [place] -18 degrees [facility] QRSD Interval [address] [facility] QT Interval 333 ms [facility] QTC Interval 406 ms [facility] T Wave [place] 12 degrees [facility] Sinus rhythm with normal rate, intervals and QRS duration. No acute ischemic changes. Electronically Signed On 10-06-2022 23:16:51 EST by Jan Monet DO - 10/06/2022 IMPRESSION: Sinus rhythm with normal rate, intervals and QRS duration. No acute ischemic changes. Electronically Signed On 10-06-2022 23:16:51 EST by Jan Nance [facility] P [place] 47 degrees [facility] NH Interval 128 ms [facility] QRS [place] 4 degrees [facility] QRSD Interval [address] [facility] QT Interval 279 ms [facility] QTC Interval 478 ms [facility] T Wave [place] 44 degrees [facility] AF with RVR rate 176 Borderline QT prolongation Rate-related ST changes Electronically Signed On 10-06-2022 20:39:58 EST by Jan Monet DO - 10/06/2022 IMPRESSION: AF with RVR rate 176 Borderline QT prolongation Rate-related ST changes Electronically Signed On 10-06-2022 20:39:58 EST by Jan Nance [facility] Arianna Enrique 10/06/2022 11:15 PM Electrical Cardioversion Performed by: Jan Nance DO Authorized by: Jan Nance DO Consent: Consent obtained: Verbal and written Consent given by: Patient Risks, benefits, and alternatives were discussed: yes Risks discussed: Induced arrhythmia and pain Alternatives discussed: No treatment, rate-control medication, referral, anti-coagulation medication, delayed treatment and observation [place] protocol: Procedure explained and questions answered to patient or proxy's satisfaction: yes Test results available: yes Immediately prior to procedure, a time out was called: yes Pre-procedure details: Cardioversion basis: Elective Rhythm: Atrial fibrillation Electrode placement: Anterior-posterior Attempt one: Cardioversion mode: Synchronous Waveform: Biphasic Shock (Joules): 200 Shock outcome: Conversion to normal sinus rhythm Post-procedure details: Patient status: Awake Procedure completion: Tolerated well, no immediate complications [facility] Arianna Enrique 10/06/2022 11:15 PM Moderate Sedation Performed by: Jan Nance DO Authorized by: Jan Nance DO Consent: Consent obtained: Verbal and written Consent given by: Patient Risks, benefits, and alternatives were discussed: yes [place] protocol: Procedure explained and questions answered to patient or proxy's satisfaction: yes Test results available: yes Immediately prior to procedure, a time out was called: yes Indications: Procedure performed: Cardioversion Procedure necessitating sedation performed by: Physician performing sedation Intended level of sedation: Deep Pre-sedation assessment: Time since last food or drink: ~4 hours ASA classification: class 2 - patient with mild systemic disease Pre-sedation assessments completed and reviewed: airway patency, cardiovascular function, hydration status, mental status, nausea/vomiting, pain level and respiratory function Immediate pre-procedure details: Reviewed: vital signs and NPO status Verified: bag valve mask available, emergency equipment available, intubation equipment available, IV patency confirmed, oxygen available and suction available Procedure details (see MAR for exact dosages): Preoxygenation: Nonrebreather mask Sedation: Etomidate Intra-procedure monitoring: Blood pressure monitoring, continuous capnometry, frequent LOC assessments, cardiac cath lab technologist, continuous pulse oximetry and frequent vital sign checks Intra-procedure events: none Post-procedure details: Attendance: Constant attendance by certified staff until patient recovered Recovery: Patient returned to pre-procedure baseline Post-sedation assessments completed and reviewed: cardiovascular function, mental status, pain level and respiratory function Patient is stable for discharge or admission: yes Procedure completion: Tolerated well, no immediate complications [facility] TSH Qnon 10-06-2022 Interpretation and review of laboratory results Normal [facility] Troponin I.cardiac [Mass/Vol ]on 10-06-2022 Interpretation and review of laboratory results Normal [facility] Patients with high levels of Biotin oral intake (ie >5 mg/day) may have falsely decreased Troponin levels. [facility] Vital signson 10-06-2022 Heart rate 89 /min bpm [facility] Heart rate 176 /min bpm [facility] XR Chest Single viewon 10-06 No evidence of an acute cardiopulmonary abnormality. Report Dictated on Electronically Signed By: Carrillo Martinez Electronically Signed Date/Time: 10/06/2022 9:38 PM [facility] [employer] Patient Name: JHON HERNANDEZ : 1975 Exam Date/Time: 10/06/2022 21:14 Procedure: XR CHEST 1 VIEW Ordering Provider: NANCE MICHAEL Reason For Exam: CHEST PAIN AP CHEST X-RAY CLINICAL INDICATION: CHEST PAIN TECHNIQUE: AP portable x-ray of the chest. COMPARISON: 12/04/2008 FINDINGS: Heart/Mediastinum: Within normal limits Lungs: No consolidation or pleural effusion. Bones: Unremarkable [facility] Carrillo Martinez M D - 10/06/2022 Patient Name: JHON HERNANDEZ : 1975 [facility]#: [id number] Exam Date/Time: 10/06/2022 21:14 Procedure: XR CHEST 1 VIEW Ordering Provider: NANCE MICHAEL Reason For Exam: CHEST PAIN AP CHEST X-RAY CLINICAL INDICATION: CHEST PAIN TECHNIQUE: AP portable x-ray of the chest. COMPARISON: 12/04/2008 FINDINGS: Heart/Mediastinum: Within normal limits Lungs: No consolidation or pleural effusion. Bones: Unremarkable IMPRESSION: No evidence of an acute cardiopulmonary abnormality. Report Dictated on Electronically Signed By: Carrillo Martinez Electronically Signed Date/Time: 10/06/2022 9:38 PM EST [facility] Radiology Study observation (narrative) [facility] XR Chest Single viewOrdered By: Carrillo Martinez on 10-06-2022 [facility] Work Phone: Absolute lymphocyte counton 12-21-2021 Lymphocytes Auto (Unsp spec) [#/Vol] 2.45 10*3/uL 0.83-4.51 [facility] Work Phone: Basophil percentageon 2021 Basophils/100 WBC (Bld) 0.5 % 0-1 [facility] Work Phone: Bilirubin [Mass/Vol] 0.40 mg/dL 0.20-1.00 [facility] Work Phone: Comment on above: For patients on eltr ombopag therapy, use of Dimension [place] TBIL is not recommended. Chloride [Moles/Vol] 105 mmol/L 98-107 [facility] Work Phone: Cholesterol [Mass/Vol] 258 mg/dL <200 [facility] Work Phone: Comment on above: <200 mg/dL Desirable 200-240 mg/dL Borderline >240 mg/dL High Risk Eosinophils/100 WBC (Bld) 2.2 % 0-5 [facility] Work Phone: Glucose [Mass/Vol] 91 mg/dL 74-106 [facility] Work Phone: Neutrophils (Bld) [#/Vol] 4.8 10*3/uL 2.0-7.7 [facility] Work Phone: Neutrophils/100 WBC (Bld) 60.2 % 47-70 [facility] Work Phone: Potassium [Moles/Vol] 4.1 mmol/L 3.5-5.1 [facility] Work Phone: Protein [Mass/Vol] 7.9 g/dL 6.4-8.2 [facility] Work Phone: Sodium [Moles/Vol] 137 mmol/L 136-145 [facility] Work Phone: Triglyceride [Mass/Vol] 200 mg/dL [facility] Work Phone: Comment on above: The drugs N-Acetylcy steine and Metamizole may falsely depress this assay.Serum Triglycerides Reference Interval Normal <150 mg/dL Borderline high 150 - 199 mg/dL High 200 - 499 mg/dL Very High > or = 500 mg/dL WBC (Bld) [#/Vol] 7.9 10*3/uL 4.4-11.0 [facility] Work Phone: Blood erythrocytes count (nu mber/volume)on 12-21-2021 RBC (Bld) [#/Vol] 5.30 10*6/uL 4.6-6.2 [facility] Work Phone: Blood hemoglobin measurement (mass/volume)on 12-21-2021 Hemoglobin (Bld) [Mass/Vol] 15.1 g/dL 13.0-16.5 [facility] Work Phone: Blood lymphocytes/100 leukoc yteson 12-21-2021 Lymphocytes/100 WBC (Bld) 31.0 % 19-41 [facility] Work Phone: Blood monocytes/100 leukocyt eson 12-21-2021 Monocytes/100 WBC (Bld) 5.8 % 0-10 [facility] Work Phone: Blood platelet mean volumeon 12-21-2021 Platelet mean volume (Bld) [Entitic vol] 9.4 fL 6.2-12.0 [facility] Work Phone: Determination of erythrocyte mean corpuscular volume (MCV)on 12-21-2021 MCV (RBC) [Entitic vol] 84.9 fL 80-94 [facility] Work Phone: Hematocrit Auto (Bld) [Volum e fraction]on 12-21-2021 Hematocrit (Bld) [Volume fraction] 45.0 % 40-54 [facility] Work Phone: Laboratory - Chemistry and C hemistry - challengeon 12-21-2021 ALP [Catalytic activity/Vol] 69 U/L 45-117 [facility] Work Phone: ALT [Catalytic activity/Vol] 125 U/L 16-61 [facility] Work Phone: CO2 [Moles/Vol] 24.0 mmol/L 21.0-32.0 [facility] Work Phone: Globulin (S) [Mass/Vol] 3.6 g/dL 2.2-4.2 [facility] Work Phone: Urea nitrogen/Creatinine [Mass ratio] 23.6 mg/mg 10-20 [facility] Work Phone: Laboratory - Hematology and Cell countson 12-21-2021 Erythrocyte distribution width (RBC) [Entitic vol] 37.8 fL 35.1-43.9 [facility] Work Phone: Erythrocyte distribution width (RBC) [Ratio] 12.2 % 11.6-14.6 [facility] Work Phone: Immature granulocytes/100 WBC (Bld) 0.300 % 0.0-0.9 [facility] Work Phone: Comment on above: IG% - Immature Granu locytes (promyelocytes, myelocytes and metamyelocytes) > 1% indicates that a LEFT SHIFT is Present. MCH (RBC) [Entitic mass] 28.5 pg 27.0-32.0 [facility] Work Phone: Nucleated RBC/100 WBC (Bld) [Ratio] 0 % 0-5 [facility] Work Phone: MCHC Auto (RBC) [Mass/Vol]on 12-21-2021 MCHC (RBC) [Mass/Vol] 33.6 g/dL 32-36 [facility] Work Phone: No Panel Informationon 12-21 Estimated GFR (MDRD) Amer 97 mL/min >60 [facility] Work Phone: Comment on above: GFR Calc Estimated GFR (MDRD) Non-Af Amer 81 mL/min >60 [facility] Work Phone: Comment on above: Non- GFR Calc Platelets bldon 12-21-2021 Platelets (Bld) [#/Vol] 247 10*3/uL 150-450 [facility] Work Phone: Serum or plasma albumin pierre urement (mass/volume)on 12-21-2021 Albumin [Mass/Vol] 4.3 g/dL 3.2-5.0 [facility] Work Phone: Serum or plasma albumin/glob ulin mass ratioon 12-21-2021 Albumin/Globulin [Mass ratio] 1.2 {ratio} 0.9-2.4 [facility] Work Phone: Serum or plasma calcium pierre urement (mass/volume)on 12-21-2021 Calcium [Mass/Vol] 9.6 mg/dL 8.5-10.1 [facility] Work Phone: Serum or plasma cholesterol in HDL measurement (mass/volume)on 12-21-2021 Cholesterol in HDL [Mass/Vol] 48 mg/dL [facility] Work Phone: Comment on above: The drugs N-Acetylcy steine and Metamizole may falsely depress this assay. Reference Range HDL <40 mg/dL Low HDL Cholesterol HDL >or= 60 mg/dL High HDL Cholesterol Serum or plasma cholesterol in VLDL measurement (mass/volume)on 12-21-2021 Cholesterol in VLDL [Mass/Vol] 40 mg/dL 5-40 [facility] Work Phone: Serum or plasma creatinine m easurement (mass/volume)on 12-21-2021 Creatinine [Mass/Vol] 1.06 mg/dL 0.70-1.30 [facility] Work Phone: Comment on above: The validity of the calculated GFR & GFRAA in patients over 70 years has not been determined. Clinical correlation is essential. Serum or plasma low density lipoprotein (LDL) cholesterol measurement (mass/volume)on 12-21-2021 Cholesterol in LDL [Mass/Vol] 170 mg/dL 0-130 [facility] Work Phone: Serum or plasma urea nitroge n measurement (mass/volume)on 12-21-2021 Urea nitrogen [Mass/Vol] 25 mg/dL 7-18 [facility] Work Phone: Thin prep Papanicolaou smear with manual screeningon 12-21-2021 Thin prep Papanicolaou smear with manual screening 52 U/L 15-37 [facility] Work Phone: Thin prep Papanicolaou smear with manual screening 8 5-15 [facility] Work Phone: Testo,Free/Total-Maleon 03-29 Neutrophils/100 WBC Auto (Bld) 2.0 % Normal 1.6-2.9 [facility] Comment on above: Result Comment: Perf ormed by [facility],[address] [place] [id number] pri.Toopher, Doug Mcmanus MD - Lab. Director Performed By: #### T FTMO ####Performing Lab is in report SHBG 24 nmol/L Normal 11-80 [facility] Comment on above: Result Comment: REFE RENCE INTERVAL: Sex Hormone Binding GlobulinAccess complete set of age- and/or gender-specific referenceintervals for this test in the [email or web address] Laboratory Test Directory(Toopher). Performed By: #### T FTMO ####Performing Lab is in report Testosterone 189 ng/dL Low 300-1080 [facility] Comment on above: Result Comment: REFE RENCE INTERVAL: Testosterone, Adult MaleAccess complete set of age- and/or gender-specific referenceintervals for this test in the [email or web address] Laboratory Test Directory(Toopher). Performed By: #### T FTMO ####Performing Lab is in report Testosterone, Free Calc 39 pg/mL Low 47-244 [facility] Comment on above: Result Comment: INTE RPRETIVE INFORMATION: Testosterone, FreeTanner Stage IV 35 - 169 pg/mLTanner Stage V 41 - 239 pg/mLThe concentration of Free Testosterone is derived from amathematical expression based on the constant for the binding oftestosterone to Sex Hormone Binding Globulin (SHBG).Access complete set of age- and/or gender-specific referenceintervals for this test in the [email or web address] Laboratory Test Directory(Toopher). Performed By: #### T FTMO ####Performing Lab is in report CR Foot Complete 3+ Views [place] f[place] 04-08-2017 CR Foot Complete 3+ Views Left Patient Name: JHON HERNANDEZ Diagnostic Radiology Exam Date/Time 04/08/2017 12:59:41 EDT Exam CR Foot Complete 3+ Views Left Ordering Physician MD ELLIS CATHERINE Accession Number [id number] CPT4 Codes 33481 () Reason For Exam persistent Report Left foot three views HISTORY: Intermittent dorsal pain No fracture or dislocation. No significant degenerative changes. No bony lesions. IMPRESSION: Normal examination. Report Dictated on Final Dictating Physician: MD PALENCIA MALAY Signed Date and Time: 04/08/2017 3:37 pm Signed by: MD PALENCIA MALAY Transcribed Date and Time: 04/08/2017 3:38 Normal [facility] Vital Signs Date Time Vital Sign Value Performing Clinician Faci lity 04-23-2025 23:10-0400 Diastolic blood pressure 67 mm[Hg] Bakari Johnson MD Work Phone: [facility] 04-23-2025 23:10-0400 Heart rate 81 /min Bakari Johnson MD Work Phone: [facility] 04-23-2025 23:10-0400 Respiratory rate 17 /min Bakari Johnson MD Work Phone: [facility] 04-23-2025 23:10-0400 SaO2% (BldA) [Mass fraction] 96 % Bakari Johnson MD Work Phone: [facility] 04-23-2025 23:10-0400 Systolic blood pressure 130 mm[Hg] Bakari Johnson MD Work Phone: [facility] 04-23-2025 21:06-0400 Body height 172.7 cm Bakari Johnson MD Work Phone: [facility] 04-23-2025 21:06-0400 Body mass index (BMI) [Ratio] 37.25 kg/m2 Bakari Johnson MD Work Phone: [facility] 04-23-2025 21:06-0400 Body temperature 97.9 [degF] Bakari Johnson MD Work Phone: [facility] 04-23-2025 21:06-0400 Body weight 111.13 kg Bakari Johnson MD Work Phone: [facility] 05-06-2024 16:00-0400 Body height 170.2 cm Jan Prasad MD Work Phone: [facility] 05-06-2024 16:00-0400 Body mass index (BMI) [Ratio] 40.57 kg/m2 Jan Prasad MD Work Phone: [facility] 05-06-2024 16:00-0400 Body weight 117.48 kg Jan Prasad MD Work Phone: [facility] 05-06-2024 16:00-0400 Diastolic blood pressure 70 mm[Hg] Jan Prasad MD Work Phone: [facility] 05-06-2024 16:00-0400 Heart rate 70 /min Jan Prasad MD Work Phone: [facility] 05-06-2024 16:00-0400 Respiratory rate 16 /min Jan Prasad MD Work Phone: [facility] 05-06-2024 16:00-0400 SaO2% (BldA) [Mass fraction] 95 % Jan Prasad MD Work Phone: [facility] 05-06-2024 16:00-0400 Systolic blood pressure 126 mm[Hg] Jan Prasad MD Work Phone: [facility] 10-10-2023 16:01-0400 Body height 175.26 cm [facility] 10-10-2023 16:01-0400 Body mass index (BMI) [Ratio] 39.5 kg/m2 [facility] 10-10-2023 16:01-0400 Body weight 121.56 kg [facility] 06-17-2023 19:18-0500 Body height 175.26 cm [facility] 06-17-2023 19:18-0500 Body mass index (BMI) [Ratio] 38.9 kg/m2 [facility] 06-17-2023 19:18-0500 Body temperature 98.1 [degF] [facility] 06-17-2023 19:18-0500 Body weight 119.74 kg [facility] 06-17-2023 19:18-0500 Diastolic blood pressure 70 mm[Hg] [facility] 06-17-2023 19:18-0500 Heart rate 68 /min [facility] 06-17-2023 19:18-0500 Respiratory rate 18 /min [facility] 06-17-2023 19:18-0500 SaO2% (BldA) [Mass fraction] 95 % [facility] 06-17-2023 19:18-0500 Systolic blood pressure 130 mm[Hg] [facility] 04-24-2023 19:28-0400 Body mass index (BMI) [Ratio] 37.2 kg/m2 [facility] 04-24-2023 19:28-0400 Body temperature 97.9 [degF] [facility] 04-24-2023 19:28-0400 Body weight 114.3 kg [facility] 04-24-2023 19:28-0400 Diastolic blood pressure 60 mm[Hg] [facility] 04-24-2023 19:28-0400 Heart rate 74 /min [facility] 04-24-2023 19:28-0400 Respiratory rate 18 /min [facility] 04-24-2023 19:28-0400 SaO2% (BldA) [Mass fraction] 98 % [facility] 04-24-2023 19:28-0400 Systolic blood pressure 100 mm[Hg] [facility] 04-12-2023 18:41-0400 Body mass index (BMI) [Ratio] 37 kg/m2 [facility] 04-12-2023 18:41-0400 Body temperature 97.9 [degF] [facility] 04-12-2023 18:41-0400 Body weight 113.85 kg [facility] 04-12-2023 18:41-0400 Diastolic blood pressure 60 mm[Hg] [facility] 04-12-2023 18:41-0400 Heart rate 92 /min [facility] 04-12-2023 18:41-0400 Respiratory rate 18 /min [facility] 04-12-2023 18:41-0400 SaO2% (BldA) [Mass fraction] 98 % [facility] 04-12-2023 18:41-0400 Systolic blood pressure 120 mm[Hg] [facility] 12-27-2022 08:36-0400 Body mass index (BMI) [Ratio] 37.59 kg/m2 Jan Prasad MD Work Phone: [facility] 12-27-2022 08:36-0400 Body weight 108.86 kg Jan Prasad MD Work Phone: [facility] 12-27-2022 08:36-0400 Diastolic blood pressure 70 mm[Hg] Jan Prasad MD Work Phone: [facility] 12-27-2022 08:36-0400 Heart rate 66 /min Jan Prasad MD Work Phone: [facility] 12-27-2022 08:36-0400 SaO2% (BldA) [Mass fraction] 96 % Jan Prasad MD Work Phone: [facility] 12-27-2022 08:36-0400 Systolic blood pressure 100 mm[Hg] Jan Prasad MD Work Phone: [facility] 11-06-2022 14:54-0400 Body height 170.2 cm Nasreen O'Shell BLOOD COORDINATOR - PRODUCTION CONTROL COORDINATING CLERK Work Phone: [facility] 11-06-2022 14:54-0400 Body mass index (BMI) [Ratio] 42.6 kg/m2 Nasreen O'Shell BLOOD COORDINATOR - PRODUCTION CONTROL COORDINATING CLERK Work Phone: [facility] 11-06-2022 14:54-0400 Body weight 123.38 kg Nasreen O'Shell BLOOD COORDINATOR - PRODUCTION CONTROL COORDINATING CLERK Work Phone: [facility] 10-08-2022 14:10-0400 Body mass index (BMI) [Ratio] 42.7 kg/m2 Nasreen O'Shell BLOOD COORDINATOR - PRODUCTION CONTROL COORDINATING CLERK Work Phone: [facility] 10-08-2022 14:10-0400 Body weight 123.65 kg Naseren O'Shell BLOOD COORDINATOR - PRODUCTION CONTROL COORDINATING CLERK Work Phone: [facility] 10-08-2022 14:10-0400 Diastolic blood pressure 86 mm[Hg] Nasreen O'Shell BLOOD COORDINATOR - PRODUCTION CONTROL COORDINATING CLERK Work Phone: [facility] 10-08-2022 14:10-0400 Heart rate 68 /min Nasreen O'Shell BLOOD COORDINATOR - PRODUCTION CONTROL COORDINATING CLERK Work Phone: [facility] 10-08-2022 14:10-0400 SaO2% (BldA) [Mass fraction] 98 % Nasreen O'Shell BLOOD COORDINATOR - PRODUCTION CONTROL COORDINATING CLERK Work Phone: [facility] 10-08-2022 14:10-0400 Systolic blood pressure 144 mm[Hg] Nasreen Corey BLOOD COORDINATOR - PRODUCTION CONTROL COORDINATING CLERK Work Phone: [facility] 10-07-2022 00:04-0500 Diastolic blood pressure 92 mm[Hg] Jan Nance DO Work Phone: [facility] 10-07-2022 00:04-0500 Heart rate 90 /min Jan Nance DO Work Phone: [facility] 10-07-2022 00:04-0500 Respiratory rate 17 /min Jan Nance DO Work Phone: [facility] 10-07-2022 00:04-0500 SaO2% (BldA) [Mass fraction] 92 % Jan Nance DO Work Phone: [facility] 10-07-2022 00:04-0500 Systolic blood pressure 141 mm[Hg] Jan Nance DO Work Phone: [facility] 10-06-2022 20:25-0500 Body height 170.2 cm Jan Nance DO Work Phone: [facility] 10-06-2022 20:25-0500 Body mass index (BMI) [Ratio] 40.72 kg/m2 Jan Nance DO Work Phone: [facility] 10-06-2022 20:25-0500 Body temperature 97.9 [degF] Jan Nance DO Work Phone: [facility] 10-06-2022 20:25-0500 Body weight 117.94 kg Jan Nance DO Work Phone: [facility] 12-21-2021 18:31-0400 Body height 175.26 cm [facility] Work Phone: 12-21-2021 18:31-0400 Body mass index (BMI) [Ratio] 37.3 kg/m2 [facility] Work Phone: 12-21-2021 18:31-0400 Body temperature 97.7 [degF] [facility] Work Phone: 12-21-2021 18:31-0400 Body weight 114.75 kg [facility] Work Phone: 12-21-2021 18:31-0400 Diastolic blood pressure 60 mm[Hg] [facility] Work Phone: 12-21-2021 18:31-0400 Heart rate 100 /min [facility] Work Phone: 12-21-2021 18:31-0400 Respiratory rate 18 /min [facility] Work Phone: 12-21-2021 18:31-0400 SaO2% (BldA) [Mass fraction] 100 % [facility] Work Phone: 12-21-2021 18:31-0400 Systolic blood pressure 100 mm[Hg] [facility] Work Phone: Encounters Encounter Date Encounter Type Care Provider Facility Start: 04-23-2025 End: 04-23-2025 Emergency department patient visit Bakari Johnson MD Work Phone: [facility] Comment on above: Laceration of forehe ad, initial encounter (Primary Dx); Closed head injury, initial encounter Start: 05-06-2024 End: 05-06-2024 [facility] Start: 05-06-2024 End: 05-06-2024 Office outpatient visit 15 minutes Jan Prasad MD Work Phone: [facility] Cardiology [facility] Comment on above: Paroxysmal atrial fi brillation (HCC) (Primary Dx); Palpitations; Essential hypertension Start: 10-10-2023 End: 10-10-2023 Patient encounter procedure [facility], Specimen Work Phone: Start: 10-10-2023 End: 10-10-2023 ambulatory Jono Weathers WET WHEELER [facility] Work Phone: Start: 06-17-2023 End: 06-17-2023 Patient encounter procedure [facility], Specimen Work Phone: Start: 06-17-2023 End: 06-17-2023 ambulatory Jono Weathers WET WHEELER [facility] Work Phone: Start: 12-27-2022 End: 12-27-2022 Office outpatient visit 25 minutes Jan Prasad MD Work Phone: [facility] Cardiology Comment on above: New onset atrial fib rillation (CMS/HCC) (HCC); Essential hypertension Start: 11-06-2022 End: 11-06-2022 Subsequent hospital visit by physician Nasreen Corey BLOOD COORDINATOR - PRODUCTION CONTROL COORDINATING CLERK Work Phone: [facility] Comment on above: New onset atrial fib rillation (CMS/HCC) (HCC) Start: 10-08-2022 End: 10-08-2022 Office outpatient new 45 minutes Nasreen Corey BLOOD COORDINATOR - PRODUCTION CONTROL COORDINATING CLERK Work Phone: [facility]iology Comment on above: New onset atrial fib rillation (CMS/HCC) (HCC) (Primary Dx); Essential hypertension Start: 10-06-2022 End: 10-07-2022 Emergency department patient visit Jan Nance DO Work Phone: [facility] Comment on above: Atrial fibrillation with rapid ventricular response (CMS/HCC) (HCC) (Primary Dx); New onset atrial fibrillation (CMS/HCC) (HCC) Start: 10-06-2022 End: 10-06-2022 Subsequent hospital visit by physician Jocelynn Ecg [facility] Comment on above: Arrived Start: 10-06-2022 Telephone encounter Hollie Milligan RN [facility] Clinical Communication Comment on above: appointment Start: 12-21-2021 End: 12-21-2021 Patient encounter procedure [facility], Specimen Start: 05-21-2018 Patient encounter status [facility] Start: 04-08-2017 Ambulatory [facility]a [facility] Start: 03-20-2017 Ambulatory QUINTIN Nunn [facility] Procedures Date Procedure Procedure Detail Performing Clinician Start: 04-23-2025 Ct head/brain w/o co ntrast material Bakari Johnson MD Work Phone: Start: 04-23-2025 Simple repair f/e/e/ n/l/m 2.6cm-5.0 cm Bakari Johnson MD Work Phone: Start: 12-27-2022 Ecg routine ecg w/le ast 12 lds w/i&r Jan Prasad MD Work Phone: Start: 11-06-2022 Echo tthrc r-t 2d w/wom-mode compl spec&colr d Nasreen O'Shell BLOOD COORDINATOR - PRODUCTION CONTROL COORDINATING CLERK Work Phone: Start: 10-08-2022 Ecg routine ecg w/le ast 12 lds trcg only w/o i&r Luis Carlos Samuel MD Work Phone: Start: 10-07-2022 Ecg routine ecg w/le ast 12 lds trcg only w/o i&r Jan Nance DO Work Phone: Start: 10-06-2022 Ecg routine ecg w/le ast 12 lds trcg only w/o i&r Jan Nance DO Work Phone: Start: 10-06-2022 Radiologic exam ches t single view Jan Nance DO Work Phone: Start: 10-06-2022 Basic metabolic pane l calcium total Jan Nance DO Work Phone: Start: 10-06-2022 Ecg routine ecg w/le ast 12 lds trcg only w/o i&r Jan Nance DO Work Phone: Start: 10-06-2022 Cardioversion electi ve arrhythmia external Jan Nance DO Work Phone: Start: 10-06-2022 PB ED PLACEHOLDER Babar yony Nance DO Work Phone: Plan of Treatment Date Care Activity Detail Author Start: 2052 RSV Immunization for Adults (1 - 1-dose 75+ series) RSV Immunization for Adults (1 - 1-dose 75+ series) [facility] Start: 2037 RSV Immunization age d 60 or older (1 - 1-dose 60+ series) RSV Immunization aged 60 or older (1 - 1-dose 60+ series) [facility] Start: 04-23-2035 DTaP/Tdap/Td Vaccine s (2 - Td or Tdap) DTaP/Tdap/Td Vaccines (2 - Td or Tdap) [facility] Start: 2027 Zoster Vaccines (1 o f 2) Zoster Vaccines (1 of 2) [facility] Start: 03-29-2025 COVID-19 Vaccine ( season) COVID-19 Vaccine ( season) [facility] Start: 03-29-2025 Influenza vaccination Influenza Vacc ine (#1) [facility] Start: 03-29-2024 COVID-19 Vaccine ( season) COVID-19 Vaccine ( season) [facility] Start: 03-29-2024 COVID-19 Vaccine ( season) COVID-19 Vaccine ( season) [facility] Start: 03-29-2024 Influenza vaccination Influenza Vacc ine (#1) [facility] Start: 01-01-2024 End: 01-01-2024 Patient encounter procedure 01/01/2024 Office Visit Cardiology Jan Prasad MD [address] [facility] [address] [place] [address] [facility] Start: 03-29-2023 Influenza vaccination Influenz a Vaccine (Season Ended) [facility] Start: 11-21-2022 End: 11-21-2022 Patient encounter procedure 11/21/2022 Office Visit Cardiology Jan Prasad MD [address] [facility] [address] [place] [address] [facility] Start: 10-08-2022 End: 10-08-2024 US Heart Transthoracic Transthoracic echocardiogram (TTE) complete with contrast, bubble, strain, and 3D PRN CV Echocardiography Routine New onset atrial fibrillation (CMS/HCC) (HCC) Expected: 10/08/2022 (Approximate), Expires: 10/08/2024 [facility] Work Phone: Comment on above: Expected: 10/08/2022 (Approximate), Expires: 10/08/2024 Start: 03-29-2022 Influenza vaccination Influenza Vacc ine (#1) [facility] Start: 1996 DTaP/Tdap/Td Vaccine s (1 - Tdap) DTaP/Tdap/Td Vaccines (1 - Tdap) [facility] Start: 1996 Hepatitis B Vaccines (1 of 3 - 19+ 3-dose series) Hepatitis B Vaccines (1 of 3 - 19+ 3-dose series) [facility] Start: 1996 Pneumococcal Vaccine : Pediatrics (0 to 5 Years) and At-Risk Patients (6 to 49 Years) (1 of 2 - PCV) Pneumococcal Vaccine: Pediatrics (0 to 5 Years) and At-Risk Patients (6 to 49 Years) (1 of 2 - PCV) [facility] Start: 1995 Diabetes mellitus screening Diabetes Screening [facility] Start: 1995 Hepatitis C screening Hepatitis C Sc reening [facility] Start: 1989 Depression Screening Depression Scre ening [facility] Start: 1983 Pneumococcal Vaccine : Pediatrics (0 to 5 Years) and At-Risk Patients (6 to 64 Years) (1 of 2 - PCV) Pneumococcal Vaccine: Pediatrics (0 to 5 Years) and At-Risk Patients (6 to 64 Years) (1 of 2 - PCV) [facility] Start: 1978 MMR Vaccines (1 of 1 - Standard series) MMR Vaccines (1 of 1 - Standard series) [facility] Start: 02-11-1978 COVID-19 Vaccine (#1) COVID-19 Vacci ne (#1) [facility] Start: 1977 Hepatitis B Vaccines (1 of 3 - 3-dose series) Hepatitis B Vaccines (1 of 3 - 3-dose series) [facility] Start: 1977 HIV screening HIV Screening [facility] Start: [address] Lip[address] Lipid Panel [facility] Start: 1977 Screening for malign ant neoplasm of colon [facility] ECG 12 lead - CLINIC PERFORMED ECG 12 lead - CLINIC PERFORMED CV ECG Routine New onset atrial fibrillation (CMS/HCC) (HCC) 10/08/2022 2:10 PM EDT [facility] Work Phone: Immunizations Immunization Date Immunization Notes Care Provider Fa cility 04-23-2025 tetanus toxoid, redu dennis diphtheria toxoid, and acellular pertussis vaccine, adsorbed Bakari Johnson MD Work Phone: [facility] Payers Date Payer Category Payer Maninder carbajal [facility] [place] [id number] 2023 Unknown [id number] 2023 Self-pay [id number] 2023 Unknown [id number] 2022 Unknown Unknown [id number] Unknown [facility] [id number] Unknown [facility] [id number] Unknown [id number] Unknown [id number] Social History Date Type Detail Facility Start: 10-25-2020 End: 04-24-2023 Tobacco smoking status [facility] Unknown if ever smoked [facility] Start: 07-27-2019 Non-smoker [facility] Start: 1975 Sex Assigned At Male [facility] Start: 10-06-2022 End: 10-08-2022 Tobacco smoking status [facility] Ex-smoker [facility] End: 10-23-2012 History of tobacco use Current smoker [facility] End: 10-23-2012 History of tobacco use Cigarette Smoker [facility] Start: 10-08-2022 Tobacco use and exposure Former smokeless tobacco user [facility] Start: 10-06-2022 End: 10-08-2022 Alcohol intake Current drinker of alcohol (finding) [facility] Start: 10-07-2022 History SDOH Alcohol Frequency 3 [facility] Start: 10-07-2022 History SDOH Alcohol Std Drinks 1 [facility] Start: 10-08-2022 Alcohol Comment usually a couple times a week [facility] Start: 1975 Sex Assigned At Not on file [facility] Start: 09-26-2022 End: 12-27-2022 Exposure to SARS-CoV-2 (event) Not sure [facility] Start: 12-27-2022 End: 04-23-2025 Alcohol intake Ex-drinker (finding) [facility] Start: 10-06-2022 End: 04-23-2025 History of Social function [facility] Start: 10-06-2022 End: 04-23-2025 Alcohol Use Disorder Identification Test - Consumption [AUDIT-C] [facility] How often to you hav e a drink containing alcohol? 2-4 times a month [facility] How many standard dr inks containing alcohol do you have on a typical day? 1 or 2 [facility] How often do you hav e 6 or more drinks on 1 occasion? Never [facility] Start: 10-06-2022 Tobacco use and exposure User of smokeless tobacco [facility] Start: 10-06-2022 Alcohol Comment occasional social [facility] Start: 02-26-2022 Sex Male (finding) [facility] How many standard dr inks containing alcohol do you have on a typical day? Patient does not drink [facility] Medical Equipment Procedure Code Equipment Code Equipment Origin al Text Equipment Identifier Dates Septoplasty, nose DAVY [id number] HEMOSTAT ABS FDA Start: 08-03-2019 Septoplasty, nose DAVY 3GRM HEMOSTAT ABS FDA Start: 08-03-2019 Septoplasty, nose DAVY 3GRM HEMOSTAT ABS FDA Start: 08-03-2019 Functional Status Date Assessment Result Facility 04-23-2025 Total score [AUDIT-C] 0 04/23/20 9:11 PM Sherine Solano RN [facility] Clinical Notes 10-06-2022 to 04-23-2025 Bakari Johnson MD - 04/23/2025 9:03 PM Peyman Wang RN - 04/23/2025 9:03 PM Peyman Wang RN - 04/23/2025 9:03 PM Una Johnson MD - 04/23/2025 9:03 PM EDTPatient InstructionsAttachments Note Date & Type Note Facility 04-23-2025 Emergency department Note Associated Order(s): Laceration Repair Emergency Department Encounter Pt Name: Jhon Hernandez Birthdate 1975 Date of evaluation: 04/23/2025 Provider: Bakari Johnson MD CHIEF COMPLAINT Chief Complaint Patient presents with Head Laceration Fall HISTORY OF PRESENT ILLNESS HPI Jhon Hernandez is a 49 y.o. male with history that includes hypertension and GERD presenting to the emergency department for evaluation of a forehead laceration. Patient tripped and fell and struck his head on a round table and sustained a laceration to his left forehead. No LOC. No headache. Tetanus not up-to-date. No EtOH. Nursing Notes were reviewed. Medical History[1] REVIEW OF SYSTEMS Several elements of the ROS reviewed and otherwise acutely negative except as in the HPI. PHYSICAL EXAM ED Triage Vitals [04/23/252105] Temp Heart Rate Resp BP 36.6 C (97.9 F) 90 16 (!) 157/69 SpO2 Temp Source Heart Rate Source Patient Position 97 % Oral Monitor Sitting BP Location FiO2 (%) Right arm -- Physical Exam Patient is laying in bed no acute distress. There is a 3 cm laceration over the left forehead. It is 4 mm deep. It is hemostatic. There is no adjacent bony tenderness. PERRL, EOMI. There is no C-spine tenderness. Strength 5/5 with bilateral shoulder extension and bilateral hip flexion. Sensation to light touch intact in bilateral upper and lower extremities. Jason Coma Scale Best Eye Response: Spontaneous Best Verbal Response: Oriented Best Motor Response: Follows commands Jason Coma Scale Score: 15 EMERGENCY DEPARTMENT COURSE and DIFFERENTIAL DIAGNOSIS/MDM: Differential diagnoses include: closed head injury, ICH, skull fracture Diagnostic tests considered but not performed: CT c-spine; do not suspect c-spine fracture Laceration Repair Performed by: Bakari Johnson MD Authorized by: Bakari Johnson MD Consent: Consent obtained: Verbal Consent given by: Patient Risks discussed: Infection, need for additional repair, nerve damage, poor cosmetic result, pain and poor wound healing Laceration details: Location: Face Face location: Forehead Length (cm): 3 Depth (mm): 4 Pre-procedure details: Preparation: Patient was prepped and draped in usual sterile fashion Exploration: Wound exploration: wound explored through full range of motion Wound extent: nerve damage Contaminated: no Treatment: Area cleansed with: Connor-Cleannalee Amount of cleaning: Standard Skin repair: Repair method: Sutures Suture size: 4-0 (5-0 absorbable suture not available) Wound skin closure material used: vicryl rapide. Suture technique: Simple interrupted Number of sutures: 5 Approximation: Approximation: Close Repair type: Repair type: Simple Post-procedure details: Dressing: Open (no dressing) Procedure completion: Tolerated well, no immediate complications ED course: Diagnoses as of 04/23/252307 Laceration of forehead, initial encounter Closed head injury, initial encounter ED medications managed: Medications lidocaine-EPINEPHrine (Xylocaine W/EPI) 1 %-1:250577 injection 5 mL (5 mL Infiltration Given 04/23/252133) acetaminophen (Tylenol) tablet 1,000 mg (1,000 mg Oral Given 04/23/252133) Tdap (BoostRIX) vaccine 0.5 mL (0.5 mL IntraMUSCular Given 04/23/252133) I discussed ED return precautions. DISPOSITION/PLAN Discharge 04/23/2025 10:50:22 PM PATIENT REFERRED TO: [facility] ED [address] [facility] [address] As needed Bakari Johnson MD Emergency Medicine [1] Past Medical History: Diagnosis Date Allergic rhinitis Anxiety GERD (gastroesophageal reflux disease) Hypertension Low testosterone Substance abuse ([facility]) Bakari Johnson MD 04/23/252307 Patient arrived ambulatory to room 5 without difficulty. Patient states he tripped and fell hitting his head on corner of desk at home. Patient has approx 5 cm laceration across forehead. Bleeding controlled upon arrival. Patient denies LOC. Last tetanus unknown. documented in this encounter [facility] 04-23-2025 Emergency department Triage note Patient arrived ambulatory to room 5 without difficulty. Patient states he tripped and fell hitting his head on corner of desk at home. Patient has approx 5 cm laceration across forehead. Bleeding controlled upon arrival. Patient denies LOC. Last tetanus unknown. [facility] 04-23-2025 Physician Emergency department Note Associated Order(s): Laceration Repair Emergency Department Encounter Pt Name: Jhon Hernandez Birthdate 1975 Date of evaluation: 04/23/2025 Provider: Bakari Johnson MD CHIEF COMPLAINT Chief Complaint Patient presents with Head Laceration Fall HISTORY OF PRESENT ILLNESS HPI Jhon Hernandez is a 49 y.o. male with history that includes hypertension and GERD presenting to the emergency department for evaluation of a forehead laceration. Patient tripped and fell and struck his head on a round table and sustained a laceration to his left forehead. No LOC. No headache. Tetanus not up-to-date. No EtOH. Nursing Notes were reviewed. Medical History[1] REVIEW OF SYSTEMS Several elements of the ROS reviewed and otherwise acutely negative except as in the HPI. PHYSICAL EXAM ED Triage Vitals [04/23/256] Temp Heart Rate Resp BP 36.6 C (97.9 F) 90 16 (!) 157/69 SpO2 Temp Source Heart Rate Source Patient Position 97 % Oral Monitor Sitting BP Location FiO2 (%) Right arm -- Physical Exam Patient is laying in bed no acute distress. There is a 3 cm laceration over the left forehead. It is 4 mm deep. It is hemostatic. There is no adjacent bony tenderness. PERRL, EOMI. There is no C-spine tenderness. Strength 5/5 with bilateral shoulder extension and bilateral hip flexion. Sensation to light touch intact in bilateral upper and lower extremities. Jason Coma Scale Best Eye Response: Spontaneous Best Verbal Response: Oriented Best Motor Response: Follows commands Jason Coma Scale Score: 15 EMERGENCY DEPARTMENT COURSE and DIFFERENTIAL DIAGNOSIS/MDM: Differential diagnoses include: closed head injury, ICH, skull fracture Diagnostic tests considered but not performed: CT c-spine; do not suspect c-spine fracture Laceration Repair Performed by: Bakari Johnson MD Authorized by: Bakari Johnson MD Consent: Consent obtained: Verbal Consent given by: Patient Risks discussed: Infection, need for additional repair, nerve damage, poor cosmetic result, pain and poor wound healing Laceration details: Location: Face Face location: Forehead Length (cm): 3 Depth (mm): 4 Pre-procedure details: Preparation: Patient was prepped and draped in usual sterile fashion Exploration: Wound exploration: wound explored through full range of motion Wound extent: nerve damage Contaminated: no Treatment: Area cleansed with: Shur-Clens Amount of cleaning: Standard Skin repair: Repair method: Sutures Suture size: 4-0 (5-0 absorbable suture not available) Wound skin closure material used: vicryl rapide. Suture technique: Simple interrupted Number of sutures: 5 Approximation: Approximation: Close Repair type: Repair type: Simple Post-procedure details: Dressing: Open (no dressing) Procedure completion: Tolerated well, no immediate complications ED course: Diagnoses as of 04/23/252307 Laceration of forehead, initial encounter Closed head injury, initial encounter ED medications managed: Medications lidocaine-EPINEPHrine (Xylocaine W/EPI) 1 %-1:682541 injection 5 mL (5 mL Infiltration Given 04/23/252133) acetaminophen (Tylenol) tablet 1,000 mg (1,000 mg Oral Given 04/23/252133) Tdap (BoostRIX) vaccine 0.5 mL (0.5 mL IntraMUSCular Given 04/23/252133) I discussed ED return precautions. DISPOSITION/PLAN Discharge 04/23/2025 10:50:22 PM PAT[facility]: [facility] [address] [facility] [address] As needed Bakari Johnson MD Emergency Medicine [1] Past Medical History: Diagnosis Date Allergic rhinitis Anxiety GERD (gastroesophageal reflux disease) Hypertension Low testosterone Substance abuse (CMS/HCC) Bakari Johnson MD 04/23/252307 [facility] 05-06-2024 History of Presen t illness Narrative [facility] Cardiology Note Chief Complaint: Chief Complaint Patient presents with 1 Year Follow-up History of Present Illness: Jhon Hernandez is a 48 y.o. male presents in follow-up after missing prior follow-up appointments. I met him in December 2022 because of atrial fibrillation after binge drinking. He went to the emergency room was cardioverted. He did well at that time. He quit binge drinking, he began exercising and dieting and lost about 40 pounds, and he started taking his antihypertensive drugs with good blood pressure control. That has not really resulted in improvement in his blood pressure and his had no significant problems with his atrial fibrillation. Past Medical History: Past Medical History: Diagnosis Date Allergic rhinitis Anxiety GERD (gastroesophageal reflux disease) Hypertension Low testosterone Substance abuse (CMS/HCC) ([facility]) Past Surgical History History reviewed. No pertinent surgical history. Family History Family History Problem Relation Name Age of Onset Cancer Mother lung No Known Problems Father No Known Problems Brother Social History Social History Tobacco Use Smoking status: Former Current packs/day: 0.00 Types: Cigarettes Quit date: 10/23/2012 Years since quittin.5 Smokeless tobacco: Former Vaping Use Vaping status: Never Used Substance Use Topics Alcohol use: Not Currently Drug use: No Comment: 1 cup of coffee a day and sometimes 2 Allergies: Allergies Allergen Reactions Ulen Oil Avocado Banana Medications: Current Outpatient Medications: albuterol 108 (90 Base) MCG/ACT inhaler, INHALE 2 PUFFS BY MOUTH EVERY 6 HOURS NEEDED FOR SHORTNESS OF BREATH FOR WHEEZING, Disp: , Rfl: busPIRone (Buspar) 10 MG tablet, Take 10 mg by mouth 3 times daily., Disp: , Rfl: hydrOXYzine HCl (Atarax) 10 MG tablet, TAKE 1 TABLET BY MOUTH FIVE TIMES DAILY NEEDED FOR ANXIETY, Disp: , Rfl: ibuprofen 800 MG tablet, Take 800 mg by mouth See administration instructions. PRN, Disp: , Rfl: lisinopril 20 MG tablet, Take 20 mg by mouth daily., Disp: , Rfl: pantoprazole (ProtoNix) 40 MG EC tablet, Take 40 mg by mouth daily., Disp: , Rfl: baclofen (Lioresal) 10 MG tablet, Take 10 mg by mouth See administration instructions. prn, Disp: , Rfl: Review of Systems: Review of Systems Constitutional: Negative. Respiratory: Negative for apnea and shortness of breath (with walking up a hill). Cardiovascular: Positive for palpitations (only when he is exhausted, dehydration or drinks alcohol - short bursts). Negative for chest pain and leg swelling. Neurological: Negative. Negative for dizziness, syncope and light-headedness. Physical Examination: Vitals: Vitals: 05/06/24 1600 BP: 126/70 BP Location: Left arm Patient Position: Sitting BP Cuff Size: Large adult Pulse: 78 Resp: 16 Weight: 259 lb (117 kg) Height: 5' 7 (1.702 m) Body mass index is 40.57 kg/m . Physical Exam Constitutional: General: He is not in acute distress. Appearance: Normal appearance. He is not ill-appearing. HENT: Head: Normocephalic and atraumatic. Nose: Nose normal. Eyes: General: No scleral icterus. Conjunctiva/sclera: Conjunctivae normal. Neck: Vascular: No carotid bruit or JVD. Cardiovascular: Rate and Rhythm: Normal rate and regular rhythm. Heart sounds: Normal heart sounds. No murmur heard. Pulmonary: Effort: Pulmonary effort is normal. Breath sounds: No wheezing or rales. Musculoskeletal: General: No deformity. Right lower leg: No edema. Left lower leg: No edema. Skin: General: Skin is warm and dry. Neurological: General: No focal deficit present. Mental Status: He is alert. Motor: No weakness. Gait: Gait normal. Psychiatric: Mood and Affect: Mood normal. Thought Content: Thought content normal. Laboratory Tests: Lab Results Component Value Date WBC 8.8 10/06/2022 HGB 16.2 10/06/2022 HCT 45.5 10/06/2022 MCV 81.4 10/06/2022 PLT 230 10/06/2022 Lab Results Component Value Date GLUCOSE 162 (H) 10/06/2022 CALCIUM 9.6 10/06/2022 NA 138 10/06/2022 K 3.6 10/06/2022 CO2 19 (L) 10/06/2022 CL 109 (H) 10/06/2022 BUN 24 (H) 10/06/2022 CREATININE 1.02 10/06/2022 Assessment and Plan: The patient is doing well. He should continue to focus on hypertension control and weight loss. He should refrain from binge drinking. He will stay on the lisinopril. He will follow-up in a year. documented in this encounter [facility] 12-27-2022 History of Presen t illness Narrative [facility] Cardiology [facility] [address] [facility] [address] Dept: [phone] Dept Loc: [phone] Visit type: Established : 1975 Chief Complaint: Chief Complaint Patient presents with New Patient History of Present Illness: Jhon Hernandez is a 47 y.o. male presents in follow-up. He was new to the atrial fibrillation clinic a couple months ago when he had atrial fibrillation. He went to the emergency room and was cardioverted. He had had a lot of alcohol to drink, was not taking his blood pressure medications and was dealing with life issues as his son had . Since that episode he has had no recurrence of atrial fibrillation symptoms. He has quit binge drinking. He has been watching his diet and exercise and has lost about 40 pounds. He has been taking his lisinopril and his blood pressures have been excellent. He has had no chest pain, shortness of breath, PND, orthopnea edema. He had no palpitations, dizziness or syncope. He completed his echocardiogram which was normal. Past Medical History: Past Medical History: Diagnosis Date Allergic rhinitis Anxiety GERD (gastroesophageal reflux disease) Hypertension Low testosterone Substance abuse ([facility]) ([facility]) Past Surgical History No past surgical history on file. Family History Family History Problem Relation Name Age of Onset Cancer Mother lung No Known Problems Father No Known Problems Brother Social History Social History Tobacco Use Smoking status: Former Types: Cigarettes Quit date: 10/23/2012 Years since quittin.1 Smokeless tobacco: Former Vaping Use Vaping Use: Never used Substance Use Topics Alcohol use: Not Currently Drug use: No Comment: 1 cup of coffee a day and sometimes 2 Allergies: Allergies Allergen Reactions Ulen Oil Avocado Banana Medications: Current Outpatient Medications: albuterol 108 (90 Base) MCG/ACT inhaler, INHALE 2 PUFFS BY MOUTH EVERY 6 HOURS NEEDED FOR SHORTNESS OF BREATH FOR WHEEZING, Disp: , Rfl: baclofen (Lioresal) 10 MG tablet, Take 10 mg by mouth See administration instructions. prn, Disp: , Rfl: busPIRone (Buspar) 10 MG tablet, Take 10 mg by mouth 3 times daily., Disp: , Rfl: hydrOXYzine HCl (Atarax) 10 MG tablet, TAKE 1 TABLET BY MOUTH FIVE TIMES DAILY NEEDED FOR ANXIETY, Disp: , Rfl: ibuprofen 800 MG tablet, Take 800 mg by mouth See administration instructions. PRN, Disp: , Rfl: lisinopril 20 MG tablet, Take 20 mg by mouth daily., Disp: , Rfl: pantoprazole (ProtoNix) 40 MG EC tablet, Take 40 mg by mouth daily., Disp: , Rfl: Review of Systems: Review of Systems Constitutional: Negative for activity change and fatigue. Weight loss of 25# since 10.06.22 HENT: Negative. Eyes: Negative. Respiratory: Positive for apnea. Chest tightness: sleep study 7 years ago - negative. Cardiovascular: Negative for palpitations (hx of afib - triggered by alcohol and has since stopped drinking and no further palpitations. No arrhytmia since [facility] 10.06.22). Gastrointestinal: Negative. Endocrine: Negative. Genitourinary: Negative. Musculoskeletal: Negative. Skin: Negative. Allergic/Immunologic: Negative. Neurological: Negative. Hematological: Negative. Psychiatric/Behavioral: Anxiety Physical Examination: Vitals: Vitals: 12/27/22 0836 BP: 100/70 BP Location: Left arm Patient Position: Sitting BP Cuff Size: Large adult Pulse: 66 SpO2: 96% Weight: 240 lb (109 kg) Body mass index is 37.59 kg/m . Physical Exam Constitutional: General: He is not in acute distress. Appearance: Normal appearance. He is not ill-appearing. HENT: Head: Normocephalic and atraumatic. Nose: Nose normal. Eyes: General: No scleral icterus. Conjunctiva/sclera: Conjunctivae normal. Neck: Vascular: No carotid bruit or JVD. Cardiovascular: Rate and Rhythm: Normal rate and regular rhythm. Heart sounds: Normal heart sounds. No murmur heard. Pulmonary: Effort: Pulmonary effort is normal. Breath sounds: No wheezing or rales. Abdominal: General: Abdomen is flat. There is no distension. Tenderness: There is no abdominal tenderness. Musculoskeletal: General: No deformity. Right lower leg: No edema. Left lower leg: No edema. Skin: General: Skin is warm and dry. Neurological: General: No focal deficit present. Mental Status: He is alert. Motor: No weakness. Gait: Gait normal. Psychiatric: Mood and Affect: Mood normal. Thought Content: Thought content normal. Laboratory Tests: Lab Results Component Value Date WBC 8.8 10/06/2022 HGB 16.2 10/06/2022 HCT 45.5 10/06/2022 MCV 81.4 10/06/2022 PLT 230 10/06/2022 Lab Results Component Value Date GLUCOSE 162 (H) 10/06/2022 CALCIUM 9.6 10/06/2022 NA 138 10/06/2022 K 3.6 10/06/2022 CO2 19 (L) 10/06/2022 CL 109 (H) 10/06/2022 BUN 24 (H) 10/06/2022 CREATININE 1.02 10/06/2022 Assessment and Plan: 1. New onset atrial fibrillation (CMS/HCC) (HCC) 2. Essential hypertension The patient's had no recurrence of atrial fibrillation. He is doing all the right things. He stopped binge drinking, he lost over 30 pounds and he has not been taking his antihypertensive drugs. If he continues with this strategy he may not be bothered by atrial fibrillation. He certainly does not warrant any changes in therapy or anticoagulation. He has no structural heart disease. His EKG is normal. He will follow-up in a year. documented in this encounter [facility] 12-27-2022 History of Presen t illness Narrative [facility] Cardiology [facility] [address] [place] [address] Dept: [phone] Dept Loc: [phone] Visit type: Established : 1975 Chief Complaint: Chief Complaint Patient presents with New Patient History of Present Illness: Jhon Hernandez is a 47 y.o. male presents in follow-up. He was new to the atrial fibrillation clinic a couple months ago when he had atrial fibrillation. He went to the emergency room and was cardioverted. He had had a lot of alcohol to drink, was not taking his blood pressure medications and was dealing with life issues as his son had . Since that episode he has had no recurrence of atrial fibrillation symptoms. He has quit binge drinking. He has been watching his diet and exercise and has lost about 40 pounds. He has been taking his lisinopril and his blood pressures have been excellent. He has had no chest pain, shortness of breath, PND, orthopnea edema. He had no palpitations, dizziness or syncope. He completed his echocardiogram which was normal. Past Medical History: Past Medical History: Diagnosis Date Allergic rhinitis Anxiety GERD (gastroesophageal reflux disease) Hypertension Low testosterone Substance abuse ([facility]) ([facility]) Past Surgical History No past surgical history on file. Family History Family History Problem Relation Name Age of Onset Cancer Mother lung No Known Problems Father No Known Problems Brother Social History Social History Tobacco Use Smoking status: Former Types: Cigarettes Quit date: 10/23/2012 Years since quittin.1 Smokeless tobacco: Former Vaping Use Vaping Use: Never used Substance Use Topics Alcohol use: Not Currently Drug use: No Comment: 1 cup of coffee a day and sometimes 2 Allergies: Allergies Allergen Reactions Ulen Oil Avocado Banana Medications: Current Outpatient Medications: albuterol 108 (90 Base) MCG/ACT inhaler, INHALE 2 PUFFS BY MOUTH EVERY 6 HOURS NEEDED FOR SHORTNESS OF BREATH FOR WHEEZING, Disp: , Rfl: baclofen (Lioresal) 10 MG tablet, Take 10 mg by mouth See administration instructions. prn, Disp: , Rfl: busPIRone (Buspar) 10 MG tablet, Take 10 mg by mouth 3 times daily., Disp: , Rfl: hydrOXYzine HCl (Atarax) 10 MG tablet, TAKE 1 TABLET BY MOUTH FIVE TIMES DAILY NEEDED FOR ANXIETY, Disp: , Rfl: ibuprofen 800 MG tablet, Take 800 mg by mouth See administration instructions. PRN, Disp: , Rfl: lisinopril 20 MG tablet, Take 20 mg by mouth daily., Disp: , Rfl: pantoprazole (ProtoNix) 40 MG EC tablet, Take 40 mg by mouth daily., Disp: , Rfl: Review of Systems: Review of Systems Constitutional: Negative for activity change and fatigue. Weight loss of 25# since 10.06.22 HENT: Negative. Eyes: Negative. Respiratory: Positive for apnea. Chest tightness: sleep study 7 years ago - negative. Cardiovascular: Negative for palpitations (hx of afib - triggered by alcohol and has since stopped drinking and no further palpitations. No arrhytmia since [facility] 10.06.22). Gastrointestinal: Negative. Endocrine: Negative. Genitourinary: Negative. Musculoskeletal: Negative. Skin: Negative. Allergic/Immunologic: Negative. Neurological: Negative. Hematological: Negative. Psychiatric/Behavioral: Anxiety Physical Examination: Vitals: Vitals: 12/27/22 0836 BP: 100/70 BP Location: Left arm Patient Position: Sitting BP Cuff Size: Large adult Pulse: 66 SpO2: 96% Weight: 240 lb (109 kg) Body mass index is 37.59 kg/m . Physical Exam Constitutional: General: He is not in acute distress. Appearance: Normal appearance. He is not ill-appearing. HENT: Head: Normocephalic and atraumatic. Nose: Nose normal. Eyes: General: No scleral icterus. Conjunctiva/sclera: Conjunctivae normal. Neck: Vascular: No carotid bruit or JVD. Cardiovascular: Rate and Rhythm: Normal rate and regular rhythm. Heart sounds: Normal heart sounds. No murmur heard. Pulmonary: Effort: Pulmonary effort is normal. Breath sounds: No wheezing or rales. Abdominal: General: Abdomen is flat. There is no distension. Tenderness: There is no abdominal tenderness. Musculoskeletal: General: No deformity. Right lower leg: No edema. Left lower leg: No edema. Skin: General: Skin is warm and dry. Neurological: General: No focal deficit present. Mental Status: He is alert. Motor: No weakness. Gait: Gait normal. Psychiatric: Mood and Affect: Mood normal. Thought Content: Thought content normal. Laboratory Tests: Lab Results Component Value Date WBC 8.8 10/06/2022 HGB 16.2 10/06/2022 HCT 45.5 10/06/2022 MCV 81.4 10/06/2022 PLT 230 10/06/2022 Lab Results Component Value Date GLUCOSE 162 (H) 10/06/2022 CALCIUM 9.6 10/06/2022 NA 138 10/06/2022 K 3.6 10/06/2022 CO2 19 (L) 10/06/2022 CL 109 (H) 10/06/2022 BUN 24 (H) 10/06/2022 CREATININE 1.02 10/06/2022 Assessment and Plan: 1. New onset atrial fibrillation (CMS/HCC) (HCC) 2. Essential hypertension The patient's had no recurrence of atrial fibrillation. He is doing all the right things. He stopped binge drinking, he lost over 30 pounds and he has been taking his antihypertensive drugs. If he continues with this strategy he may not be bothered by atrial fibrillation. He certainly does not warrant any changes in therapy or anticoagulation. He has no structural heart disease. His EKG is normal. He will follow-up in a year. documented in this encounter [facility] 10-08-2022 Evaluation + Plan note Associated Problem(s): Obesity, Class III, BMI 40-49.9 (morbid obesity) (HCC) His BMI is 42.7 and I have encouraged him to start an exercise program to get that under control. I have counseled him on decreasing his calories and exercising on a regular basis. I have also counseled him against alcohol consumption [facility] 10-08-2022 Miscellaneous Notes Associated Problem(s): Obesity, Class III, BMI 40-49.9 (morbid obesity) (HCC) His BMI is 42.7 and I have encouraged him to start an exercise program to get that under control. I have counseled him on decreasing his calories and exercising on a regular basis. I have also counseled him against alcohol consumption Associated Problem(s): Essential hypertension His blood pressure is borderline today and I have encouraged him to follow a low-sodium diet refraining from alcohol consumption and to diet and exercise to get his BMI down. I have also advised him to take his lisinopril 20 mg daily. Associated Problem(s): New onset atrial fibrillation (CMS/HCC) (HCC) This is likely his second episode of atrial fibrillation, his first being 2 years ago but resolved before EMS got to his house. He states his symptoms were the same. It was also associated with binge drinking. His [id number] VASc score 1 for hypertension therefore low cardioembolic risk. I did not recommend anticoagulation at this time. His blood pressure was significantly elevated in the ER. His states that his relatively good at home as she monitors it from time to time. I have encouraged him to refrain from binge drinking/possibly abstaining altogether I have encouraged him to diet and exercise and get his BMI back down under control I have also counseled him on a low-sodium diet and discussed the ramifications of untreated hypertension. He has only been taking his lisinopril as needed and will start taking it daily. I have ordered an echocardiogram to rule out structural abnormality. I have not ordered MCT because he was well aware of when the episode started and ended. We discussed atrial fibrillation, the causes and treatment modalities including medication and catheter-based treatments. We made no plan for today except lifestyle modification. He will establish with Dr. Prasad in approximately 4 weeks. documented in this encounter [facility] 10-08-2022 Evaluation + Plan note Associated Problem(s): Essential hypertension His blood pressure is borderline today and I have encouraged him to follow a low-sodium diet refraining from alcohol consumption and to diet and exercise to get his BMI down. I have also advised him to take his lisinopril 20 mg daily. [facility] 10-08-2022 Evaluation + Plan note Associated Problem(s): New onset atrial fibrillation (CMS/HCC) (HCC) This is likely his second episode of atrial fibrillation, his first being 2 years ago but resolved before EMS got to his house. He states his symptoms were the same. It was also associated with binge drinking. His [id number] VASc score 1 for hypertension therefore low cardioembolic risk. I did not recommend anticoagulation at this time. His blood pressure was significantly elevated in the ER. His states that his relatively good at home as she monitors it from time to time. I have encouraged him to refrain from binge drinking/possibly abstaining altogether I have encouraged him to diet and exercise and get his BMI back down under control I have also counseled him on a low-sodium diet and discussed the ramifications of untreated hypertension. He has only been taking his lisinopril as needed and will start taking it daily. I have ordered an echocardiogram to rule out structural abnormality. I have not ordered MCT because he was well aware of when the episode started and ended. We discussed atrial fibrillation, the causes and treatment modalities including medication and catheter-based treatments. We made no plan for today except lifestyle modification. He will establish with Dr. Prasad in approximately 4 weeks. [facility] 10-08-2022 History of Presen t illness Narrative Images from the original note were not included. [facility] [address] [facility] [address] Dept: [phone] Dept Loc: [phone] Visit type: New : 1975 Reason for Visit: New Patient and Atrial Fibrillation Assessment and Plan 1. New onset atrial fibrillation (CMS/HCC) (HCC) Assessment & Plan: This is likely his second episode of atrial fibrillation, his first being 2 years ago but resolved before EMS got to his house. He states his symptoms were the same. It was also associated with binge drinking. His [id number] VASc score 1 for hypertension therefore low cardioembolic risk. I did not recommend anticoagulation at this time. His blood pressure was significantly elevated in the ER. His states that his relatively good at home as she monitors it from time to time. I have encouraged him to refrain from binge drinking/possibly abstaining altogether I have encouraged him to diet and exercise and get his BMI back down under control I have also counseled him on a low-sodium diet and discussed the ramifications of untreated hypertension. He has only been taking his lisinopril as needed and will start taking it daily. I have ordered an echocardiogram to rule out structural abnormality. I have not ordered MCT because he was well aware of when the episode started and ended. We discussed atrial fibrillation, the causes and treatment modalities including medication and catheter-based treatments. We made no plan for today except lifestyle modification. He will establish with Dr. Prasad in approximately 4 weeks. Orders: - ECG 12 lead - CLINIC PERFORMED - Transthoracic echocardiogram (TTE) complete with contrast, bubble, strain, and 3D PRN - perflutren lipid microspheres (Definity) injection 1.65 mg; 1.65 mg, IntraVENous, IMG once PRN, other, Suboptimal echo image, Starting on Sat10/08/22 at 1449, For 1 dose, CV Procedural MedicationsAdminister up to 1.65 mg via slow IVP for suboptimal echocardiogram enhancement. May administer a calculated dose or diluted 8.5 mL of 0.9% sodium chloride for a total volume of 10 mL. May administer as divided doses to reach optimal image enhancement 2. Essential hypertension Assessment & Plan: His blood pressure is borderline today and I have encouraged him to follow a low-sodium diet refraining from alcohol consumption and to diet and exercise to get his BMI down. I have also advised him to take his lisinopril 20 mg daily. Follow up in about 4 weeks (around 11/05/2022), or Dr Prasad. Subjective Jhon Hernandez is a 47 year old male patient referred to the Afib program from [facility] ER Saturday night for new onset Atrial fibrillation. He presented to ER with c/o tachy palpitations and chest pain. His work up included TSH-nml, CBC-nml, BMP-essentially unremarkable, Mag 1.8 and CXR which showed no acute cardio-pulm issues. His EKG revealed Atrial fibrillation with vent rate 176BPM, second EKG NSR 89BPM and was post DCC. He admitted to having 5 alcoholic drinks on Saturday and stated that he had a similar episode previously but it resolved on it's own. Jhon Hernandez today he presents to the office for evaluation accompanied by his who is a nurse at [facility] inpatient. He states that he feels much better post cardioversion and has not had any further palpitations since early Saturday morning. He admits that he had approximately 8 shots of liquor and states he did not feel well after 6 and knew he should not have another 2 but did anyway. He states that he had a fullness in his abdomen and then noted his heart racing. He states he had an episode approximately 2 years ago under similar circumstances after drinking but states that it had resolved by the time EMS got to his house. He states he was not sure what it was. During this episode he also complained of exertional shortness of breath and states he has noticed when he goes up a flight of stairs he gets winded. He states he has gained approximately 40 pounds over the past 2 years from dietary indiscretion as well as increased drinking. His states he snores but he is states he had a sleep study that was negative a couple years ago. He also admits to anxiety and is on medication for this. He was diagnosed with hypertension 2 years ago and takes his lisinopril only as needed. Besides the alcohol consumption he eats copious amounts of sodium including drinking pickle juice. He states he feels this is a wake-up call and he wants to modify his lifestyle. He denies getting any medications on discharge. Review of Systems Constitutional: Negative for chills, diaphoresis and fever. HENT: Negative for nosebleeds. Eyes: Negative for visual disturbance. Respiratory: Negative for chest tightness, shortness of breath and wheezing. Cardiovascular: Negative for chest pain, palpitations and leg swelling. Gastrointestinal: Negative for abdominal pain, blood in stool and diarrhea. Genitourinary: Negative for hematuria. Musculoskeletal: Negative for myalgias. Neurological: Negative for dizziness and syncope. Hematological: Does not bruise/bleed easily. Allergies Allergen Reactions Ulen Oil Avocado Banana Outpatient Medications Prior to Visit Medication Sig Dispense Refill albuterol 108 (90 Base) MCG/ACT inhaler INHALE 2 PUFFS BY MOUTH EVERY 6 HOURS NEEDED FOR SHORTNESS OF BREATH FOR WHEEZING baclofen (Lioresal) 10 MG tablet Take 10 mg by mouth 3 times daily as needed. busPIRone (Buspar) 10 MG tablet Take 10 mg by mouth 3 times daily. hydrOXYzine HCl (Atarax) 10 MG tablet TAKE 1 TABLET BY MOUTH FIVE TIMES DAILY NEEDED FOR ANXIETY ibuprofen 800 MG tablet Take 800 mg by mouth See administration instructions. PRN lisinopril 20 MG tablet Take 20 mg by mouth daily. pantoprazole (ProtoNix) 40 MG EC tablet Take 40 mg by mouth daily. No facility-administered medications prior to visit. Past Medical History: Diagnosis Date Allergic rhinitis Anxiety GERD (gastroesophageal reflux disease) Hypertension Low testosterone Substance abuse (CMS/HCC) (HCC) Social History Tobacco Use Smoking status: Former Types: Cigarettes Quit date: 10/23/2012 Years since quittin.9 Smokeless tobacco: Former Substance Use Topics Alcohol use: Yes Comment: usually a couple times a week No past surgical history on file. Family History Problem Relation Name Age of Onset Cancer Mother lung No Known Problems Father No Known Problems Brother Objective Vitals: 10/08/22 1410 BP: (!) 144/86 BP Location: Right arm Patient Position: Sitting BP Cuff Size: Large adult Pulse: 68 SpO2: 98% Weight: 272 lb 9.6 oz (124 kg) Physical Exam Constitutional: General: He is not in acute distress. Appearance: He is not diaphoretic. HENT: Head: Normocephalic. Nose: Nose normal. Mouth/Throat: Mouth: Mucous membranes are moist. Pharynx: No oropharyngeal exudate. Eyes: General: No scleral icterus. Right eye: No discharge. Left eye: No discharge. Neck: Thyroid: No thyromegaly. Vascular: No carotid bruit or JVD. Cardiovascular: Rate and Rhythm: Normal rate and regular rhythm. Pulses: Normal pulses. Heart sounds: Normal heart sounds. Pulmonary: Effort: Pulmonary effort is normal. Breath sounds: Normal breath sounds. Abdominal: General: Bowel sounds are normal. There is no distension. Palpations: There is no hepatomegaly. Tenderness: There is no abdominal tenderness. Musculoskeletal: General: Normal range of motion. Cervical back: Normal range of motion. Right lower leg: No edema. Left lower leg: No edema. Skin: General: Skin is warm and dry. Neurological: Mental Status: He is oriented to person, place, and time. Psychiatric: Mood and Affect: Mood normal. Behavior: Behavior normal. Data Reviewed and Summarized No results found for: EFBP, PLVEF, LVEFPHYS, LVEF2D, EF Review of tests/labs done/ordered within my specialty: EKG in office: His EKG reveals a normal sinus rhythm at 68 bpm Review of tests/labs done/ordered outside my specialty: Independent interpretation of tests: RODNEY Dietrich CNP documented in this encounter [facility] 10-08-2022 Instructions RODNEY Dietrich CNP - 10/08/2022 2:00 PM EDT Echocardiogram and then follow up with Dr Prasad Low sodium diet Exercise Try to lose weight and get BMI down documented in this encounter [facility] 10-08-2022 Telephone encounter Note Patient is scheduled for 10/08 at 2pmwith Nasreen O'Shell at [facility] at [address] PT was advised and given scheduling number if unable to keep appt. This is Per Secure Chat. [facility] 10-08-2022 Miscellaneous Notes Patient is scheduled for 10/08 at 2pmwith Nasreen O'Shell at [facility] at [address] PT was advised and given scheduling number if unable to keep appt. This is Per Secure Chat. Secure chat message received from Dr. Jan Nance, DO requesting an expedited follow up appointment for patient in Afib clinic. New onset A.Fib/RVR, electrically cardioverted in ED at [place] Saturday night. Dr. Nance advised that a message would be sent to management to assist in scheduling patient's appointment. documented in this encounter [facility] 10-07-2022 Emergency department Note Reviewed discharge instructions and patient verbalized understanding. No further questions. Patient ambulated out of ED with strong steady gait. Respirations even and non labored. No acute distress. A&O x4. Patient states that he feels much better, just tired Domi Garcia RN 10/07/2220 [facility] 10-07-2022 Emergency department Note Reviewed discharge instructions and patient verbalized understanding. No further questions. Patient ambulated out of ED with strong steady gait. Respirations even and non labored. No acute distress. A&O x4. Patient states that he feels much better, just tired Domi Garcia RN 10/07/2220 Pt awake and alert. Denies complaints Myla Jackson RN 10/06/222312 Pt awake and alert. States he feels much better. remains at bedside. 162/102, 89, 18, 97% NRB 15L. Myla Jackson RN 10/06/222311 Pt cardioverted @ 200j by Dr. Nance. Converted to sinus rhythm. Myla Jackson RN 10/06/222310 Pt calm and cooperative prior to procedure. at bedside. 170/103, 128, 15, 98% on 15L NRB mask Myla Jackson RN 10/06/22 3809 Pt moved to room 10 for procedure. Placed on nasal cannula O2 2L with capnography. Defib pads placed on back and chest. Pt awaits procedure. Myla Jackson RN 10/06/22 3102 Pt signed consent for procedural sedation and cardioversion. Myla Jackson RN 10/06/221 Associated Order(s): Electrical Cardioversion; Moderate Sedation EMERGENCY DEPARTMENT ENCOUNTER Pt Name: Jhon Hernandez Birthdate 1975 Date of evaluation: 10/06/2022 ED Provider: Jan Nance DO CHIEF COMPLAINT Chief Complaint Patient presents with Shortness of Breath Palpitations HISTORY OF PRESENT ILLNESS (Location/Symptom, Timing/Onset, Context/Setting, Quality, Duration, Modifying Factors, Severity) Note limiting factors. I wore appropriate PPE for the entirety of this encounter. HPI Jhon Hernandez is a 47 y.o. male who presents to the emergency department with sudden onset of a feeling that his heart was racing with some associated chest pain about 30 minutes ago. He had eaten a full meal about an hour ago. Had about 3 drinks this afternoon and another 2 drinks this evening, says he was not drinking heavily. Says this happened once before but it resolved on its own he did not seek medical attention at that time. Is never been diagnosed with atrial fibrillation. No history of thyroid disease. No recent weight loss or weight gain. Nursing Notes were reviewed. REVIEW OF SYSTEMS All systems reviewed and negative except as noted above. PAST MEDICAL HISTORY Past Medical History: Diagnosis Date Allergic rhinitis Anxiety GERD (gastroesophageal reflux disease) Hypertension Low testosterone Substance abuse ([facility]/HCC) ([facility]) SURGICAL HISTORY No past surgical history on file. CURRENT MEDICATIONS Previous Medications BUSPIRONE (BUSPAR) 10 MG TABLET Take 10 mg by mouth 3 times daily. HYDROXYZINE HCL (ATARAX) 10 MG TABLET TAKE 1 TABLET BY MOUTH FIVE TIMES DAILY NEEDED FOR ANXIETY LISINOPRIL 20 MG TABLET Take 20 mg by mouth daily. ALLERGIES Ulen oil, Avocado, and Banana FAMILY HISTORY Family History Problem Relation Name Age of Onset Cancer Mother lung No Known Problems Father No Known Problems Brother SOCIAL HISTORY Social History Socioeconomic History Marital status: Tobacco Use Smoking status: Former Types: Cigarettes Quit date: 10/23/2012 Years since quittin.9 Smokeless tobacco: Current Vaping Use Vaping Use: Never used Substance and Sexual Activity Alcohol use: Yes Comment: occasional social Drug use: No PHYSICAL EXAM ED Triage Vitals [10/06/222024] Temp Heart Rate Resp BP 36.6 C (97.9 F) (!) 156 18 (!) 198/112 SpO2 Temp Source Heart Rate Source Patient Position 98 % Oral -- Sitting BP Location FiO2 (%) Right arm -- General: Well-developed, well-nourished patient lying in bed who appears uncomfortable but non-toxic. Head: Atraumatic, normocephalic. Eyes: Sclera anicteric. ENT: Mucous membranes moist. Neck: No JVD. No thyromegaly. Heart: Tachycardic and irregularly irregular, no appreciable murmur. Lungs: Clear to auscultation bilaterally. Normal respiratory pattern without conversational dyspnea or respiratory distress. Abdomen: Soft, non-tender, non-distended, no guarding or peritoneal signs. Neurologic: Awake and alert, normal speech and mental status. Moves all extremities equally well. No focal deficits or lateralizing signs. Psychiatric: Seems quite anxious. Skin: Warm and dry, no appreciable rash. No diaphoresis. Musculoskeletal: No peripheral edema. No signs of DVT. Peripheral vascular: Radial pulses 2+ and symmetrical bilaterally. DIAGNOSTIC RESULTS/EMERGENCY DEPARTMENT COURSE and DIFFERENTIAL DIAGNOSIS/MDM: Vitals: Vitals: 10/06/22 2148 10/06/22 2156 10/06/22 2158 10/06/22 2312 BP: 123/78 123/78 (!) 137/96 BP Location: Right arm Right arm Patient Position: Sitting Lying Pulse: 105 97 85 Resp: 18 14 14 Temp: TempSrc: SpO2: 95% 97% 96% Weight: Height: EKG: EKG was reviewed by myself. Physician EKG interpretation can be found in [facility] LABS: Labs Reviewed BASIC METABOLIC PANEL - Abnormal Result Value SODIUM 138 POTASSIUM 3.6 CHLORIDE 109 (*) CARBON DIOXIDE 19 (*) UREA NITROGEN 24 (*) CREATININE 1.02 GLUCOSE 162 (*) CALCIUM 9.6 ANION GAP 10 eGFR >90.0 CBC WITH AUTO DIFFERENTIAL - Abnormal Auto WBC 8.8 RBC 5.59 Hemoglobin 16.2 Hematocrit 45.5 MCV 81.4 MCH 29.0 MCHC 35.6 RDW 12.8 Platelets 230 MPV 8.6 Neutrophils Relative 60.0 Lymphocytes Relative 33.3 Monocytes Relative 4.0 Eosinophils Relative 1.8 Basophils Relative 0.7 Immature Grans % 0.2 (*) Neutrophils Absolute 5.3 Lymphocytes Absolute 2.9 Monocytes Absolute 0.4 Eosinophils Absolute 0.2 Basophils Absolute 0.1 Immature Grans Absolute 0.0 TROPONIN I - Normal TROPONIN I <0.012 Narrative: Patients with high levels of Biotin oral intake (ie >5 mg/day) may have falsely decreased Troponin levels. THYROID STIMULATING HORMONE - Normal THYROID STIMULATING HORMONE 2.373 MAGNESIUM - Normal MAGNESIUM 1.8 All other labs were within normal range or not returned as of this dictation. Medical Decision Making Problems Addressed: Atrial fibrillation with rapid ventricular response (CMS/HCC) (HCC): complicated acute illness or injury New onset atrial fibrillation (CMS/HCC) (HCC): complicated acute illness or injury Amount and/or Complexity of Data Reviewed Labs: ordered. Radiology: ordered. ECG/medicine tests: ordered. Risk Prescription drug management. I considered immediate cardioversion given the timeframe of his symptoms, but I am hesitant to sedate him given the fact that he ate a full meal just an hour ago and says that he feels full. I discussed this in detail with him and his at the bedside. Plan at this point will be for antiemetics including Reglan in order to help to expedite gastric emptying, and IV Cardizem for rate control. We will watch him for an hour to, see if he converts with rate control. If he is still in atrial fibrillation in a couple of hours, will reconsider and likely cardiovert at that point. Social determinants of health that influenced the pt's care/disposition included alcohol use. Says he is not a heavy drinker or a problem drinker. Reevaluated 2129, heart rate is now in the 115-135 range. He is still in atrial fibrillation on the monitor. Still feels fluttering but says is less intense. I am going to redose his Cardizem, as has been 45 minutes since the 0.25 mg/kg dose. 2199: Heart rate is now between 90 and 115 after 0.35 mg/kg dose of Cardizem. He feels much better, still feels the fluttering but is not as uncomfortable as it was before. Had a long discussion with him about the risk, benefits and alternatives to procedural sedation and cardioversion. Told him that it was reasonable, although not optimal, to send him home on anticoagulation and rate control tonight to follow-up with the atrial fibrillation clinic on Saturday or Saturday, but that if he does not convert on his own, he would require and echocardiogram prior to his cardioversion at that point, and if he remains in atrial fibrillation is likely to remain symptomatic. He is very confident that this just occurred tonight just prior to arrival, very confident about the time of onset. He also now says that his meal was not that large, was more of a small meal with a few drinks. Given the very short duration of action of etomidate, the agent I plan to use for procedural sedation, I plan to go ahead with the procedure at about 0. Medications provided in the ED included those listed below. The patient was discharged and was provided with referral to the Atrial Fibrillation clinic, [facility] to schedule appointment. Interpretation per the Radiologist below, if available at the time of this note: XR chest 1 view Final Result No evidence of an acute cardiopulmonary abnormality. Report Dictated on Electronically Signed By: Carrillo Martinez Electronically Signed Date/Time: 10/06/2022 9:38 PM EST Medications ondansetron (Zofran) injection 4 mg (has no administration in time range) lactated ringers bolus 500 mL (0 mL IntraVENous Stopped 10/06/222318) ondansetron (Zofran) injection 4 mg (4 mg IntraVENous Given 10/06/222044) metoclopramide (Reglan) injection 10 mg (10 mg IntraVENous Given 10/06/222044) LORazepam (Ativan) injection 0.5 mg (0.5 mg IntraVENous Given 10/06/222040) dilTIAZem (Cardizem) injection 30 mg (30 mg IntraVENous Given 10/06/222044) dilTIAZem (Cardizem) injection 40 mg (40 mg IntraVENous Given 10/06/222147) etomidate (Amidate) injection 20 mg (16 mg IntraVENous Given 10/06/222253) Critical Care Time: I was directly and primarily involved in the care of this patient for 40 minutes excluding procedures. PROCEDURES: Unless otherwise noted below, none Electrical Cardioversion Performed by: Jan Nance DO Authorized by: Jan Nance DO Consent: Consent obtained: Verbal and written Consent given by: Patient Risks, benefits, and alternatives were discussed: yes Risks discussed: Induced arrhythmia and pain Alternatives discussed: No treatment, rate-control medication, referral, anti-coagulation medication, delayed treatment and observation [place] protocol: Procedure explained and questions answered to patient or proxy's satisfaction: yes Test results available: yes Immediately prior to procedure, a time out was called: yes Pre-procedure details: Cardioversion basis: Elective Rhythm: Atrial fibrillation Electrode placement: Anterior-posterior Attempt one: Cardioversion mode: Synchronous Waveform: Biphasic Shock (Joules): 200 Shock outcome: Conversion to normal sinus rhythm Post-procedure details: Patient status: Awake Procedure completion: Tolerated well, no immediate complications Moderate Sedation Performed by: Jan Nance DO Authorized by: Jan Nance DO Consent: Consent obtained: Verbal and written Consent given by: Patient Risks, benefits, and alternatives were discussed: yes [place] protocol: Procedure explained and questions answered to patient or proxy's satisfaction: yes Test results available: yes Immediately prior to procedure, a time out was called: yes Indications: Procedure performed: Cardioversion Procedure necessitating sedation performed by: Physician performing sedation Intended level of sedation: Deep Pre-sedation assessment: Time since last food or drink: ~4 hours ASA classification: class 2 - patient with mild systemic disease Pre-sedation assessments completed and reviewed: airway patency, cardiovascular function, hydration status, mental status, nausea/vomiting, pain level and respiratory function Immediate pre-procedure details: Reviewed: vital signs and NPO status Verified: bag valve mask available, emergency equipment available, intubation equipment available, IV patency confirmed, oxygen available and suction available Procedure details (see MAR for exact dosages): Preoxygenation: Nonrebreather mask Sedation: Etomidate Intra-procedure monitoring: Blood pressure monitoring, continuous capnometry, frequent LOC assessments, cardiac cath lab technologist, continuous pulse oximetry and frequent vital sign checks Intra-procedure events: none Post-procedure details: Attendance: Constant attendance by certified staff until patient recovered Recovery: Patient returned to pre-procedure baseline Post-sedation assessments completed and reviewed: cardiovascular function, mental status, pain level and respiratory function Patient is stable for discharge or admission: yes Procedure completion: Tolerated well, no immediate complications FINAL IMPRESSION 1. Atrial fibrillation with rapid ventricular response (CMS/HCC) (HCC) 2. New onset atrial fibrillation (CMS/HCC) (HCC) PATIENT REFERRED TO: [facility]s [address] [facility] [id number] Schedule an appointment as soon as possible for a visit DISCHARGE MEDICATIONS: New Prescriptions No medications on file (Comment: Please note this report has been produced using speech recognition software and may contain errors related to that system including errors in grammar, punctuation, and spelling, as well as words and phrases that may be inappropriate. If there are any questions or concerns please feel free to contact the dictating provider for clarification.) Jan Nance DO (electronically signed) Emergency Medicine Provider Jan Nance DO 10/06/22 1011 Pt to ER with complaint of shortness of breath and palpitations sudden onset wile at dinner tonight. Pt admits to 2 alcohol drinks. Denies drug use. States this happened before, but went away on its own. This started 1/2 hour prior to arrival. + chest tightness and diaphoresis. residential monitor placed on arrival. EKG obtained on arrival. Pt ambulatory on arrival with steady gait. Alert and oriented x 4. Skin warm and moist. documented in this encounter [facility] 10-06-2022 Hospital Discharg e instructions Jan Nance DO - 10/06/2022 11:15 PM EST Our cardiology team will call you to schedule follow-up, call them yourself if you have not heard from them by lunchtime on Saturday. Call your family doctor to schedule follow-up as well. Return to the ED if symptoms recur or if any other problems arise. The following attachments cannot be sent through Care Everywhere.Atrial Fibrillation Discharge Instructions (Vietnamese)documented in this encounter [facility] 10-06-2022 Emergency department Note Pt awake and alert. Denies complaints Myla Jackson RN 10/06/222312 [facility] 10-06-2022 Telephone encounter Note Secure chat message received from Dr. Jan Nance DO requesting an expedited follow up appointment for patient in Afib clinic. New onset A.Fib/RVR, electrically cardioverted in ED at [place] Saturday. Dr. Nance advised that a message would be sent to management to assist in scheduling patient's appointment. [facility] 10-06-2022 Emergency department Note Pt awake and alert. States he feels much better. remains at bedside. 162/102, 89, 18, 97% NRB 15L. Myla Jackson RN 10/06/222311 [facility] 10-06-2022 Emergency department Note Pt cardioverted @ 200j by Dr. Nance. Converted to sinus rhythm. Myla Jackson RN 10/06/222310 [facility] 10-06-2022 Emergency department Note Pt calm and cooperative prior to procedure. at bedside. 170/103, 128, 15, 98% on 15L NRB mask Myla Jackson RN 10/06/22 5485 [facility] 10-06-2022 Emergency department Note Pt moved to room 10 for procedure. Placed on nasal cannula O2 2L with capnography. Defib pads placed on back and chest. Pt awaits procedure. Myla Jackson RN 10/06/22 2242 [facility] 10-06-2022 Emergency department Note Pt signed consent for procedural sedation and cardioversion. Myla Jackson RN 10/06/22 9196 [facility] 10-06-2022 Emergency department Triage note Pt to ER with complaint of shortness of breath and palpitations sudden onset wile at dinner tonight. Pt admits to 2 alcohol drinks. Denies drug use. States this happened before, but went away on its own. This started 1/2 hour prior to arrival. + chest tightness and diaphoresis. residential monitor placed on arrival. EKG obtained on arrival. Pt ambulatory on arrival with steady gait. Alert and oriented x 4. Skin warm and moist. [facility] 10-06-2022 Physician Emergency department Note Associated Order(s): Electrical Cardioversion; Moderate Sedation EMERGENCY DEPARTMENT ENCOUNTER Pt Name: Jhon Hernandez Birthdate 1975 Date of evaluation: 10/06/2022 ED Provider: Jan Nance DO CHIEF COMPLAINT Chief Complaint Patient presents with Shortness of Breath Palpitations HISTORY OF PRESENT ILLNESS (Location/Symptom, Timing/Onset, Context/Setting, Quality, Duration, Modifying Factors, Severity) Note limiting factors. I wore appropriate PPE for the entirety of this encounter. HPI Jhon Hernandez is a 47 y.o. male who presents to the emergency department with sudden onset of a feeling that his heart was racing with some associated chest pain about 30 minutes ago. He had eaten a full meal about an hour ago. Had about 3 drinks this afternoon and another 2 drinks this evening, says he was not drinking heavily. Says this happened once before but it resolved on its own he did not seek medical attention at that time. Is never been diagnosed with atrial fibrillation. No history of thyroid disease. No recent weight loss or weight gain. Nursing Notes were reviewed. REVIEW OF SYSTEMS All systems reviewed and negative except as noted above. PAST MEDICAL HISTORY Past Medical History: Diagnosis Date Allergic rhinitis Anxiety GERD (gastroesophageal reflux disease) Hypertension Low testosterone Substance abuse ([facility]/HCC) ([facility]) SURGICAL HISTORY No past surgical history on file. CURRENT MEDICATIONS Previous Medications BUSPIRONE (BUSPAR) 10 MG TABLET Take 10 mg by mouth 3 times daily. HYDROXYZINE HCL (ATARAX) 10 MG TABLET TAKE 1 TABLET BY MOUTH FIVE TIMES DAILY NEEDED FOR ANXIETY LISINOPRIL 20 MG TABLET Take 20 mg by mouth daily. ALLERGIES Ulen oil, Avocado, and Banana FAMILY HISTORY Family History Problem Relation Name Age of Onset Cancer Mother lung No Known Problems Father No Known Problems Brother SOCIAL HISTORY Social History Socioeconomic History Marital status: Tobacco Use Smoking status: Former Types: Cigarettes Quit date: 10/23/2012 Years since quittin.9 Smokeless tobacco: Current Vaping Use Vaping Use: Never used Substance and Sexual Activity Alcohol use: Yes Comment: occasional social Drug use: No PHYSICAL EXAM ED Triage Vitals [10/06/222024] Temp Heart Rate Resp BP 36.6 C (97.9 F) (!) 156 18 (!) 198/112 SpO2 Temp Source Heart Rate Source Patient Position 98 % Oral -- Sitting BP Location FiO2 (%) Right arm -- General: Well-developed, well-nourished patient lying in bed who appears uncomfortable but non-toxic. Head: Atraumatic, normocephalic. Eyes: Sclera anicteric. ENT: Mucous membranes moist. Neck: No JVD. No thyromegaly. Heart: Tachycardic and irregularly irregular, no appreciable murmur. Lungs: Clear to auscultation bilaterally. Normal respiratory pattern without conversational dyspnea or respiratory distress. Abdomen: Soft, non-tender, non-distended, no guarding or peritoneal signs. Neurologic: Awake and alert, normal speech and mental status. Moves all extremities equally well. No focal deficits or lateralizing signs. Psychiatric: Seems quite anxious. Skin: Warm and dry, no appreciable rash. No diaphoresis. Musculoskeletal: No peripheral edema. No signs of DVT. Peripheral vascular: Radial pulses 2+ and symmetrical bilaterally. DIAGNOSTIC RESULTS/EMERGENCY DEPARTMENT COURSE and DIFFERENTIAL DIAGNOSIS/MDM: Vitals: Vitals: 10/06/22 2148 10/06/22 2156 10/06/22 2158 10/06/22 2312 BP: 123/78 123/78 (!) 137/96 BP Location: Right arm Right arm Patient Position: Sitting Lying Pulse: 105 97 85 Resp: 18 14 14 Temp: TempSrc: SpO2: 95% 97% 96% Weight: Height: EKG: EKG was reviewed by myself. Physician EKG interpretation can be found in [facility] LABS: Labs Reviewed BASIC METABOLIC PANEL - Abnormal Result Value SODIUM 138 POTASSIUM 3.6 CHLORIDE 109 (*) CARBON DIOXIDE 19 (*) UREA NITROGEN 24 (*) CREATININE 1.02 GLUCOSE 162 (*) CALCIUM 9.6 ANION GAP 10 eGFR >90.0 CBC WITH AUTO DIFFERENTIAL - Abnormal Auto WBC 8.8 RBC 5.59 Hemoglobin 16.2 Hematocrit 45.5 MCV 81.4 MCH 29.0 MCHC 35.6 RDW 12.8 Platelets 230 MPV 8.6 Neutrophils Relative 60.0 Lymphocytes Relative 33.3 Monocytes Relative 4.0 Eosinophils Relative 1.8 Basophils Relative 0.7 Immature Grans % 0.2 (*) Neutrophils Absolute 5.3 Lymphocytes Absolute 2.9 Monocytes Absolute 0.4 Eosinophils Absolute 0.2 Basophils Absolute 0.1 Immature Grans Absolute 0.0 TROPONIN I - Normal TROPONIN I <0.012 Narrative: Patients with high levels of Biotin oral intake (ie >5 mg/day) may have falsely decreased Troponin levels. THYROID STIMULATING HORMONE - Normal THYROID STIMULATING HORMONE 2.373 MAGNESIUM - Normal MAGNESIUM 1.8 All other labs were within normal range or not returned as of this dictation. Medical Decision Making Problems Addressed: Atrial fibrillation with rapid ventricular response (CMS/HCC) (HCC): complicated acute illness or injury New onset atrial fibrillation (CMS/HCC) (HCC): complicated acute illness or injury Amount and/or Complexity of Data Reviewed Labs: ordered. Radiology: ordered. ECG/medicine tests: ordered. Risk Prescription drug management. I considered immediate cardioversion given the timeframe of his symptoms, but I am hesitant to sedate him given the fact that he ate a full meal just an hour ago and says that he feels full. I discussed this in detail with him and his at the bedside. Plan at this point will be for antiemetics including Reglan in order to help to expedite gastric emptying, and IV Cardizem for rate control. We will watch him for an hour to, see if he converts with rate control. If he is still in atrial fibrillation in a couple of hours, will reconsider and likely cardiovert at that point. Social determinants of health that influenced the pt's care/disposition included alcohol use. Says he is not a heavy drinker or a problem drinker. Reevaluated 2129, heart rate is now in the 115-135 range. He is still in atrial fibrillation on the monitor. Still feels fluttering but says is less intense. I am going to redose his Cardizem, as has been 45 minutes since the 0.25 mg/kg dose. 2199: Heart rate is now between 90 and 115 after 0.35 mg/kg dose of Cardizem. He feels much better, still feels the fluttering but is not as uncomfortable as it was before. Had a long discussion with him about the risk, benefits and alternatives to procedural sedation and cardioversion. Told him that it was reasonable, although not optimal, to send him home on anticoagulation and rate control tonight to follow-up with the atrial fibrillation clinic on Saturday or Saturday, but that if he does not convert on his own, he would require and echocardiogram prior to his cardioversion at that point, and if he remains in atrial fibrillation is likely to remain symptomatic. He is very confident that this just occurred tonight just prior to arrival, very confident about the time of onset. He also now says that his meal was not that large, was more of a small meal with a few drinks. Given the very short duration of action of etomidate, the agent I plan to use for procedural sedation, I plan to go ahead with the procedure at about 2300. Medications provided in the ED included those listed below. The patient was discharged and was provided with referral to the Atrial Fibrillation clinic, [facility] to schedule appointment. Interpretation per the Radiologist below, if available at the time of this note: XR chest 1 view Final Result No evidence of an acute cardiopulmonary abnormality. Report Dictated on Electronically Signed By: Carrillo Martinez Electronically Signed Date/Time: 10/06/2022 9:38 PM EST Medications ondansetron (Zofran) injection 4 mg (has no administration in time range) lactated ringers bolus 500 mL (0 mL IntraVENous Stopped 10/06/222318) ondansetron (Zofran) injection 4 mg (4 mg IntraVENous Given 10/06/222044) metoclopramide (Reglan) injection 10 mg (10 mg IntraVENous Given 10/06/222044) LORazepam (Ativan) injection 0.5 mg (0.5 mg IntraVENous Given 10/06/222040) dilTIAZem (Cardizem) injection 30 mg (30 mg IntraVENous Given 10/06/222044) dilTIAZem (Cardizem) injection 40 mg (40 mg IntraVENous Given 10/06/222147) etomidate (Amidate) injection 20 mg (16 mg IntraVENous Given 10/06/222253) Critical Care Time: I was directly and primarily involved in the care of this patient for 40 minutes excluding procedures. PROCEDURES: Unless otherwise noted below, none Electrical Cardioversion Performed by: Jan Nance DO Authorized by: Jan Nance DO Consent: Consent obtained: Verbal and written Consent given by: Patient Risks, benefits, and alternatives were discussed: yes Risks discussed: Induced arrhythmia and pain Alternatives discussed: No treatment, rate-control medication, referral, anti-coagulation medication, delayed treatment and observation [place] protocol: Procedure explained and questions answered to patient or proxy's satisfaction: yes Test results available: yes Immediately prior to procedure, a time out was called: yes Pre-procedure details: Cardioversion basis: Elective Rhythm: Atrial fibrillation Electrode placement: Anterior-posterior Attempt one: Cardioversion mode: Synchronous Waveform: Biphasic Shock (Joules): 200 Shock outcome: Conversion to normal sinus rhythm Post-procedure details: Patient status: Awake Procedure completion: Tolerated well, no immediate complications Moderate Sedation Performed by: Jan Nance DO Authorized by: Jan Nance DO Consent: Consent obtained: Verbal and written Consent given by: Patient Risks, benefits, and alternatives were discussed: yes [place] protocol: Procedure explained and questions answered to patient or proxy's satisfaction: yes Test results available: yes Immediately prior to procedure, a time out was called: yes Indications: Procedure performed: Cardioversion Procedure necessitating sedation performed by: Physician performing sedation Intended level of sedation: Deep Pre-sedation assessment: Time since last food or drink: ~4 hours ASA classification: class 2 - patient with mild systemic disease Pre-sedation assessments completed and reviewed: airway patency, cardiovascular function, hydration status, mental status, nausea/vomiting, pain level and respiratory function Immediate pre-procedure details: Reviewed: vital signs and NPO status Verified: bag valve mask available, emergency equipment available, intubation equipment available, IV patency confirmed, oxygen available and suction available Procedure details (see MAR for exact dosages): Preoxygenation: Nonrebreather mask Sedation: Etomidate Intra-procedure monitoring: Blood pressure monitoring, continuous capnometry, frequent LOC assessments, cardiac cath lab technologist, continuous pulse oximetry and frequent vital sign checks Intra-procedure events: none Post-procedure details: Attendance: Constant attendance by certified staff until patient recovered Recovery: Patient returned to pre-procedure baseline Post-sedation assessments completed and reviewed: cardiovascular function, mental status, pain level and respiratory function Patient is stable for discharge or admission: yes Procedure completion: Tolerated well, no immediate complications FINAL IMPRESSION 1. Atrial fibrillation with rapid ventricular response (CMS/HCC) (HCC) 2. New onset atrial fibrillation (CMS/HCC) (HCC) PATIENT REFERRED TO: Jono Weathers [address] [place], [place] [address] [address] Schedule an appointment as soon as possible for a visit DISCHARGE MEDICATIONS: New Prescriptions No medications on file (Comment: Please note this report has been produced using speech recognition software and may contain errors related to that system including errors in grammar, punctuation, and spelling, as well as words and phrases that may be inappropriate. If there are any questions or concerns please feel free to contact the dictating provider for clarification.) Jan Nance DO (electronically signed) Emergency Medicine Provider Jan Nance DO 10/06/22 2140 [facility] Work Phone: Evaluation note Diagnosis Onset Date Abnormal liver enzymes acute Anxiety acute Hypertension [facility] Work Phone: Evaluation note* Diagnosis New onset atrial fibrillation (CMS/HCC) (HCC) Atrial fibrillation documented in this encounter [facility] note* Diagnosis New onset atrial fibrillation (CMS/HCC) (HCC) Atrial fibrillation Essential hypertension Unspecified essential hypertension documented in this encounter [facility]* Diagnosis Onset Date Resolution Status Sebaceous cyst acute Sebaceous hyperplasia of chest acute Obesity acute Hypertension chronic Anxiety acute Asthma acute Hyperlipidemia acute Obesity acute Hypertension [facility] Work Phone: Evaluation note* Diagnosis Onset Date Resolution Status Anxiety acute Asthma acute Hyperlipidemia acute Obesity acute Hypertension chronic Anxiety acute Hyperlipidemia acute Hypertriglyceridemia acute Obesity acute [facility] Work Phone: Evaluation note* Diagnosis New onset atrial fibrillation (HCC) Atrial fibrillation Essential hypertension Unspecified essential hypertension documented in this encounter [facility] note* Diagnosis Atrial fibrillation with rapid ventricular response (CMS/HCC) (HCC)- Primary New onset atrial fibrillation (CMS/HCC) (HCC) [facility]rial fibrillation [facility] Diagnosis New onset atrial fibrillation (CMS/HCC) (HCC)- Primary Atrial fibrillation Essential hypertension Unspecified essential hypertension documented in this encounter [facility] note* Diagnosis New onset atrial fibrillation (HCC)- Primary Atrial fibrillation Essential hypertension Unspecified essential hypertension Paroxysmal atrial fibrillation (HCC)- Primary Atrial fibrillation Palpitations Essential hypertension Unspecified essential hypertension documented in this encounter [facility] note* Diagnosis New onset atrial fibrillation (HCC)- Primary Atrial fibrillation Essential hypertension Unspecified essential hypertension Laceration of forehead, initial encounter- Primary Closed head injury, initial encounter [facility]* Attachments The following attachments cannot be sent through Care Everywhere. * Laceration Repair With Stitches Discharge Instructions (Vietnamese) * Closed Head Injury (Vietnamese) documented in this [facility] Summary Purpose Family History No Family History Records Found Relationship Condition Age at Onset Recorded Date/T bhavin Not Specified Malignant neoplasm of lung Unknown Cerebrovascular accident (CVA) Unknown Advance Directives No Advanced Directives Records Found Advance Directive Response Recorded Date/ Time Living Will No October 25, 2020 3:37pm Power of Fleet Assistant No October 25 3:37pm Advance Directive Response Recorded Date/ Time Living Will No April 24, 2023 6:28pm Power of Fleet Assistant No March 6:28pm Advance Directive Response Recorded Date/ Time Living Will No April 24, 2023 7:28pm Power of Fleet Assistant No March 7:28pm Chief Complaint and Reason for Visit Chief Complaint medication refills Reason for Visit Abnormal liver enzym es Anxiety Hypertension Chief Complaint Sebaceous Cyst/chest area red & painful medication refills BP medication medication refills Reason for Visit Sebaceous cyst Sebaceous hyperplasia of chest Obesity Hypertension Anxiety Asthma Hyperlipidemia Obesity Hypertension Chief Complaint medication refills Weight Management/Labs/Insomnia Reason for Visit Anxiety Asthma Hyperlipidemia Obesity Hypertension Anxiety Hyperlipidemia Hypertriglyceridemia Obesity Reason for Referral Specialty Diagnoses / Procedures Referred By Nazario t Referred To Contact Cardiology Diagnoses New onset atrial fibrillation (CMS/HCC) (HCC) Procedures Transthoracic echocardiogram (TTE) complete with contrast, bubble, strain, and 3D PRN NH ECHO TTHRC R-T 2D W/WOM-MODE COMPL SPEC&COLR D NH TTE W OR WO FOL WCON,DOPPLER O'Shell, Nasreen, BLOOD COORDINATOR - PRODUCTION CONTROL COORDINATING CLERK [address] [place] [address] Non-Invasive Cardiology [address] [place] [phone] Referral ID Status Reason Start Date Expiration Date V isits Requested Visits Authorized [id number] Closed Perform Procedure 10/08/2022 04/06/2023 1 1 Specialty Diagnoses / Procedures Referred By Nazario t Referred To Contact Cardiology Diagnoses New onset atrial fibrillation (CMS/HCC) (HCC) Procedures Transthoracic echocardiogram (TTE) complete with contrast, bubble, strain, and 3D PRN NH ECHO TTHRC R-T 2D W/WOM-MODE COMPL SPEC&COLR D NH TTE W OR WO FOL WCON,DOPPLER O'Shell, Nasreen, BLOOD COORDINATOR - PRODUCTION CONTROL COORDINATING CLERK [address] [address] Referral ID Status Reason Start Date Expiration Date Visits Requested Visits Authorized [id number] Pending Review Perform Procedure 10/08/2022 04/06/2023 1 1 Additional Source Comments (unrecognized sect ion and content) No Status Records FoundNo Status Records FoundNo Status Records FoundNo Status Records FoundNo Status Records Found INFORMATION SOURCE (unrecogn ized section and content) DATE CREATED AUTHOR 01/22/2018 [facility] DATE CREATED AUTHOR AUTHOR'S ORGANIZ ATION 10/14/2023 [facility] DATE CREATED AUTHOR AUTHOR'S ORGANIZ ATION 05/01/2025 [facility] Goals (unrecognized section and content) Goals may be documented in a n alternate sectionGoals may be documented in an alternate sectionGoals may be documented in an alternate section Reason for Visit (unrecogniz ed section and content) Specialty Diagnoses / Procedures Referred By Contac t Referred To Contact Cardiology Diagnoses New onset atrial fibrillation (CMS/HCC) (HCC) Procedures Transthoracic echocardiogram (TTE) complete with contrast, bubble, strain, and 3D PRN NH ECHO TTHRC R-T 2D W/WOM-MODE COMPL SPEC&COLR D NH TTE W OR WO FOL WCON,DOPPLER O'Shell, Nasreen, BLOOD COORDINATOR - PRODUCTION CONTROL COORDINATING CLERK [address] [facility] [address] [place] [id number] Non-Invasive Cardiology [address] [place] [phone] Referral ID Status Reason Start Date Expiration Date V isits Requested Visits Authorized [id number] Closed Perform Procedure 10/08/2022 04/06/2023 1 1 Reason Comments New Patient Reason Comments Shortness of Breath Palpitations Reason Onset Date Comments appointment 10/06/2022 Reason Comments New Patient Atrial Fibrillation Reason Comments 1 Year Follow-up Reason Comments Head Laceration Fall Care Teams (unrecognized sec tion and content) Online User Experience Strategist Relationship Specialty Start Date End Date Jono Weathers [address] [place], [place] [phone] PCP - General Nurse Practitioner 10/06/22 Online User Experience Strategist Relationship Specialty Start Date End Date Jono Weathers [address] [place], [place] [phone] PCP - General Nurse Practitioner 10/06/22 Team Status: Active Member Role Status Dates Jono Weathers WET WHEELER, WET WHEELER-C Family Provider Active Jono Weathers WET WHEELER, WET WHEELER-C Primary Care Provider Active Team Status: Inactive Member Role Status Dates Jono Weathers WET WHEELER, WET WHEELER-C Primary Care Pr ovider, Attending Provider, Referring Provider Active Team Status: Inactive Member Role Status Dates Jono Weathers WET WHEELER, WET WHEELER-C Primary Care Provider, Attend ing Provider Active Online User Experience Strategist Relationship Specialty Start Date End Date Jono Weathers [address] [place] [address] PCP - General Nurse Practitioner 10/06/22 Online User Experience Strategist Relationship Specialty Start Date End Date Jono [place] [address] [place] [address] PCP - General Nurse Practitioner 10/06/22 Online User Experience Strategist Relationship Specialty Start Date End Date Jono [place] [address] [place] [address] PCP - General Nurse Practitioner 10/06/22 Online User Experience Strategist Relationship Specialty Start Date End Date Jono [place]s [address] [place] [address] PCP - General Nurse Practitioner 10/06/22 Online User Experience Strategist Relationship Specialty Start Date End Date Jono [place]s [address] [place] [address] PCP - General Nurse Practitioner 10/06/22 Online User Experience Strategist Relationship Specialty Start Date End Date Jono Weathers [address] [place] [address] PCP - General Nurse Practitioner 10/06/22 Online User Experience Strategist Relationship Specialty Start Date End Date Jono Weathers [address] [place] [address] PCP - General Nurse Practitioner 10/06/22 Online User Experience Strategist Relationship Specialty Start Date End Date Jono Weathers [address] [place] [address] PCP - General Nurse Practitioner 10/06/22 Scheduled Active and Recently Administ ered Medications (unrecognized section and content) Medication Order 10/05/2022 10/06/2022 10/07/2022 dilTIAZem (Cardizem) injection 30 mg (COMPLETED) 30 mg, IntraVENous, Once, On 10/06/22 at 0, For 1 dose, Administer over at least 2 minutes. 2044 (Given - Provider: Myla Jackson RN) dilTIAZem (Cardizem) injection 40 mg (COMPLETED) 40 mg, IntraVENous, Once, On 10/06/22 at 213, For 1 dose, Administer over at least 2 minutes. 2147 (Given - Provider: Myla Jackson RN) etomidate (Amidate) injection 20 mg (COMPLETED) 20 mg, IntraVENous, Once, On 10/06/22 at 2220, For 1 dose, Hold until ready for procedure General Anesthetic - do not give without appropriate ventilation support. 2253 (Given - Provider: Myla Jackson, JAIR) lactated ringers bolus 500 mL (COMPLETED) 500 mL, IntraVENous, at 250 mL/hr, Administer over 2 Hours, Once, On 10/06/22 at 2100, For 1 dose 2118 (New Bag - Provider: Myla Jackson RN)2318 (Stopped - Provider: Myla Jackson RN) LORazepam (Ativan) injection 0.5 mg (COMPLETED) 0.5 mg, IntraVENous, Once, On 10/06/22 at 2039, For 1 dose, For IV doses dilute dose with 1ml NS. 2040 (Given - Provider: Myla Jackson RN) metoclopramide (Reglan) injection 10 mg (COMPLETED) 10 mg, IntraVENous, Once, On 10/06/22 at 0, For 1 dose 2044 (Given - Provider: Myla Jackson RN) ondansetron (Zofran) injection 4 mg (COMPLETED) 4 mg, IntraVENous, Once, On 10/06/22 at 2039, For 1 dose 2044 (Given - Provider: Myla Jackson, JAIR) PRN Medication Order 10/05/2022 10/06/2022 10/07/2022 ondansetron (Zofran) injection 4 mg 4 mg, IntraVENous, Once PRN, nausea, vomiting, Starting on 10/06/22 at 2032, For 1 dose, Give 15 min after first dose if nausea persists Scheduled Medication Order 04/21/2025 04/22/2025 04/23/2025 acetaminophen (Tylenol) tablet 1,000 mg (COMPLETED) 1,000 mg, Oral, Once, On Sat04/23/25 at 2119, For 1 dose, Maximum dose of acetaminophen is 4000 mg from all sources in 24 hours. 2133 (Given - Provid er: Sherine Wang RN) lidocaine-EPINEPHrine (Xylocaine W/EPI) 1 %-[id number] injection 5 mL (COMPLETED) 5 mL, Infiltration, Once, On Sat04/23/25 at 2119, For 1 dose 2133 (Given - Provid er: Sherine Wang RN) FOR RECORDS PERTAINING TO PATIENTS WHO ARE OR HAVE BEEN ENROLLED IN A CHEMICAL DEPENDENCY/SUBSTANCEABUSE PROGRAM, SOME INFORMATION MAY BE OMITTED. This clinical summary was aggregated from multiple sources. Caution should be exercised in using it in the provision of clinical care. This summary normalizes information from multiple sources, and as a consequence, information in this document may materially change the coding, format and clinical context of patient data. In addition, data may be omitted in some cases. CLINICAL DECISIONS SHOULD BE BASED ON THE PRIMARY CLINICAL RECORDS. [facility]. provides no warranty or guarantee of the accuracy or completeness of information in this document.
[2025-07-06 22:13] LABS: Hematocrit 45.0 % (40-54); Hemoglobin 15.6 g/dL (13.0-16.5); Immature Granulocytes Count 0.030 X10^3/uL (0.0-0.0); Mean Corp Hgb Conc 34.7 g/dL (32-36); Mean Corpuscular Volume 82.6 fL (80-94); Mean Platelet Vol. 8.8 fl (6.2-12.0); NRBC Flagged by Analyzer 0 % (0-5); Platelet Count 291 K/mm3 (150-450); RBC Distribution Width CV 13.1 % (11.6-14.6); RBC Distribution Width SD 39.0 fl (35.1-43.9); Red Blood Count 5.45 M/mm3 (4.6-6.2); White Blood Count 8.9 K/mm3 (4.4-11.0)
[2025-07-06 22:34] LABS: AST(SGOT) 40 U/L (<=37); Alanine Aminotransfer ALT/SGPT 70 U/L (<=46); Albumin, Serum 4.7 g/dL (3.5-5.0); Alkaline Phosphatase 60 U/L (40-129); Anion Gap 14 (5-15); BUN 24 mg/dL (4-19); BUN/Creat Ratio 24.6 RATIO (10-20); Calcium,Total 9.6 mg/dL (7.6-11.0); Carbon Dioxide 22.7 mmol/L (21.0-32.0); Chloride 103 mmol/L (98-108); Ferritin 159 ng/mL (37-417); Globulin 2.9 g/dL (2.2-4.2); Glucose 128 mg/dL (70-99); Potassium 3.8 mmol/L (3.3-5.1)
[2025-07-06 22:56] LABS: Iron Binding Capacity,Total 324 ug/dL (250-450)
[2025-07-06 23:07] LABS: CRP < 3.00 mg/L (0.0-3.0); Iron 82 ug/dL (65-175); Iron Binding Capacity,Unsat 242 ug/dL (228-428)
[2025-07-08 08:09] LABS: Testosterone, Serum 4226 70 ng/dL (264-916); Transferrin 289 mg/dL (177-329)
== END | disposition home or self-care (01) ==
PROVIDERS: PCP Nurse Practitioner; Referring Provider Nurse Practitioner; Visit Provider Nurse Practitioner
DX: D50.9 Iron deficiency anemia, unspecified (principal); R53.83 Other fatigue; R79.89 Other specified abnormal findings of blood chemistry
CPT/HCPCS: 80053; 82728; 83540; 83550; 84403; 84466; 85025; 86140